=== PATIENT | male | born 1965 | race Caucasian/White ===

== ENCOUNTER 2025-02-17 07:51 | Inpatient (IN) ==
--- NOTE | 2025-02-17 08:47 | History & Physical Bridge Note ---
Date of Service February 17, 2025 History & Physical Bridge Note I have examined the patient, reviewed the History & Physical and in the interval since the performance of the History & Physical I have noted the following changes of clinical significance: no changes noted
--- NOTE | 2025-02-17 08:48 | Pre Anesthesia Assessment ---
Date of Service February 17, 2025 Pre Sedation Assessment Vital Signs Temp Pulse Resp BP Pulse Ox O2 Del Method 02/17/25 07:58 36.4 C 77 17 161/115 H 96 Room Air Cardiovascular RRR, no murmur, no edema Respiratory normal respiratory effort, lungs clear to auscultation Pre-Sedation Airway Assessment Smoking Status: Former smoker Hx Sleep Apnea: No Short, Thick Neck: No Thyromental Distance: > or= 3.5 Finger Breadths Oral Cavity: + WNL Mallampati Class: III ASA: ASA3 NPO Status Date of Last Intake of Fluids: 02/16/25 Time of Last Intake of Fluids: 18:00 Date of Last Intake of Solid Food: 02/16/25 Time of Last Intake of Solid Foods: 18:00 Procedure Planning Contraindications for Sedation: none Current Medications Reviewed: Yes Notes The planned sedation has been discussed with the patient. Informed Consent was obtained. I have identified the patient, determined the appropriateness of sedation and have assessed the patient immediately prior to the procedure. All medicine(s) and interventions are by my order.
--- NOTE | 2025-02-17 09:37 | Post Anesthesia Assessment ---
Date of Service February 17, 2025 Post Sedation Assessment Vital Signs Temp Pulse Resp BP Pulse Ox O2 Del Method 02/17/25 07:58 36.4 C 77 17 161/115 H 96 Room Air Recovery Score Activity: Moves 4 extremities Respiration: Deep Breath/Cough Circulation: +/-20% PreAnes Value Consciousness: Fully Awake Oxygen Saturation: > 92% On Room Air Discharge Sedation Level of Care: Fast Track Phase II Post Sedation Plan On clinical assessment, the patient appears to have tolerated the sedation without complications. Patient is recovering as anticipated. Patient will continue to be monitored by nursing and may be discharged when sedation discharge criteria are met per below protocol. Upon Completions of procedure up to 15 minutes continue every 5 minute vital signs and the P.A.R. score; then discharge to a Phase I or Fast Track to Phase II per the following guidelines: * Discharge Patient to appropriate Phase II area if PAR is 8 or greater or return to pre- procedure baseline. The post - procedure orders will be as directed. * If PAR score is less than 8 or not return to pre-procedure baseline then patient will follow Phase I monitoring till PAR is reached for Phase II. The Phase I may be done in procedure room or may call to secure a Phase I area. * If naloxone or flumazenil are used for reversal, hold in Phase I for continued monitoring from when last reversal dose was given for a minimum of 60 minutes or longer pending the nurse and/or physician discretion of patient condition before discharge to Phase II. Please call the Sedation Physician to re-evaluate and complete post-note for discharge to Phase II area. Do NOT discharge from procedure sedation or Phase 1 until post- sedation evaluation note is complete by procedure /sedation MD Sedation Discharge Instructions to be given to the patient at discharge to home.
[2025-02-17] MEDS: LIDOCAINE 1% LOCAL 20 ML VIAL ONE ×2 (10:42→13:28)
[2025-02-17] MEDS: MIDAZOLAM HCL 5 MG/ML 1 ML VIAL ONE ×2 (13:25→13:29)
[2025-02-17] MEDS: fentaNYL citrate PF 100 MCG/2 ML VIAL ONE ×2 (13:25→13:29)
[2025-02-17] MEDS: ISOPROTERENOL HCL 0.2 MG/ML 5 ML AMP IV ONE (13:26)
[2025-02-17] MEDS: HEPARIN (PORCINE) 1000 UNIT/ML 10 ML (CATH LAB USE ONLY) ONE ×2 (13:26→13:29)
[2025-02-17] MEDS: AMIODARONE 360MG / 200ML D5W IV ONE (13:30)
[2025-02-17] MEDS: METOPROLOL TARTRATE 1 MG/ML VIAL IV ONE (13:31)
[2025-02-17 13:34] LABS: iSTAT Arterial Blood Gas HCO3 23 meg/L (19-24); iSTAT Arterial Blood Gas pCO2 50 mmHg (35-46); iSTAT Arterial Blood Gas pH 7.28 (7.35-7.45); iSTAT Arterial Blood Gas pO2 169 mmHg (80-95); iSTAT Carbon Dioxide 25 mmol/L (24-31); iSTAT Hematocrit 47 % (42-52); iSTAT Potassium 4.1 mmol/L (3.3-5.0); iSTAT Sodium 140 mmol/L (135-144)
[2025-02-17] MEDS: MoRPHine SULFATE 2 MG/ML CARP ONE (14:20)
[2025-02-17] MEDS: ETOMIDATE 2 MG/ML 20 ML VIAL IV ONE (14:24)
[2025-02-17] MEDS: MoRPHine SULFATE 2 MG/ML CARP IV STA (15:22)
[2025-02-17] MEDS ORDERED: 0.2 MICRON FILTER SET 1 EACH IV ONE ×2 (15:37→19:16)
--- NOTE | 2025-02-17 16:17 | XRay Report ---
Clinical History: Chest pain Technique: A frontal view of the chest was obtained Findings: There are no confluent pulmonary infiltrates. The heart size is within normal limits. No pleural effusion or pneumothorax is seen. There is an apparent 2 cm left upper lobe nodule No fracture is noted. No foreign body is seen Impression: Apparent 2 cm left upper lobe nodule, which could represent bronchogenic carcinoma. Contrast enhanced chest CT is recommended for further evaluation ACT 112: Positive. There are findings on this exam that require communication between the performing entity and the patient following Patient Test Result Information Act ([place] ACT 112) guidelines. Electronically signed by John Herrera 02-17-2025 4:15 PM
[2025-02-17] MEDS: oxyCODONE/ACETAMINOPHEN 10-325 TAB PO PRN (17:37)
[2025-02-17] MEDS: ISOSORBIDE MONO EXTENDED REL 30 MG TABCR PO SCH (17:38)
[2025-02-17] MEDS: AMIODARONE / D5W 360 MG/200 ML BAG IV ONE (17:38)
[2025-02-17] MEDS: AMIODARONE 200 MG TAB PO SCH (17:39)
[2025-02-17] MEDS: AMIODARONE / D5W 360 MG/200 ML BAG IV SCH (20:14)
[2025-02-17] MEDS: metFORMIN HCL 500 MG TAB PO SCH (20:43)
[2025-02-17] MEDS: lisinopril 20 MG TAB PO STA (21:41)
--- OUTSIDE RECORDS SUMMARY | 2025-02-18 01:54 | External Medical Summary | Summary of Care ---
Author Name Unknown Organization [facility] Address [address] [place] [address] Phone [phone] Care Team Providers Care Community Development Planner Name Role Phone Karmen Morales PIPPA Primary Care Provider Reason for Visit * Reason Onset Date Comments Referral 12/29/2024 Encounter Details Date Type Department Care Team (Late st Contact Info) Description 12/29/2024 New Patient Triage (TRANSPORTATION ECONOMICS TEACHER USE ONLY) Cardiology, [address] [phone] Alysha Wu CRNP [address] [place] [address] Referral Allergies No known active allergiesdocumented as of this encounter (statuses as of 01/19/2025) Medications Olmesartan Medoxomil-HCTZ 20-12.5 MG Oral TabletIndicatio ns:HTN, goal below 130/80 Take 2 Tablets by mouth in the morning. 180 Tablet 3 4 Active Additional Information Patient not taking.Reported on 12/24/2024 Nitroglycerin 0.4 MG Sublingual Tablet Sublingual (Nitrostat) Place 1 Tablet under the tongue every 5 minutes as needed for Pain, Chest. 5 Active metFORMIN HCl 500 MG Oral Tablet (Glucophage) Take 2 Tablets by mouth 2 times a day with morning and evening meals. 120 Tablet 5 5 Active Aspirin 81 MG Oral Tablet Chewable Take 1 Tablet by mouth in the morning. 5 025 Discontin ued(Refil l) Isosorbide Mononitrate ER 30 MG Oral Tablet Extended Release 24 Hour (Imdur) Take 1 Tablet by mouth in the morning. 5 025 Discontin ued(Refil l) Metoprolol Tartrate 25 MG Oral Tablet (Lopressor) Take 0.5 Tablets by mouth in the morning and 0.5 Tablets before bedtime. 5 025 Discontin ued(Refil l) Rosuvastatin Calcium 20 MG Oral Tablet (Crestor) Take 1 Tablet by mouth in the morning. 5 025 Discontin ued(Refil l) Hospital, Clinic, or Other Facility Administered Medication Ordered Dose Route Frequency Start Date End Date Status albuterol (PROVENTIL HFA) inhaler 4 PuffIndications:Pulmonary nodules,Hilar lymphadenopathy,Past use of tobacco,Mediastinal lymphadenopathy 4 Puff IN Q4H PRN 12/12/2018 Active albuterol sulfate (PROVENTIL) (2.5 MG/3ML) 0.083% inhalation solution 2.5 mgIndications:Pulmonary nodules,Hilar lymphadenopathy,Past use of tobacco,Mediastinal lymphadenopathy 2.5 mg NEBULIZER Q4H PRN 03/03/2019 Active documented as of this encounter (statuses as of 01/19/2025) Active Problems Problem Noted Date Diagnosed Date Type 2 diabetes mellitus wit hout complication, without long-term current use of insulin 04/13/2024 HTN, goal below 130/80 12/25/2018 Obesity, Class II, BMI 35-39.9, isolated (see ac tual BMI) 12/25/2018 Angina pectoris 12/25/2018 documented as of this encounter (statuses as of 01/19/2025) Resolved Problems Problem Noted Date Diagnosed Date Resolved Date Prediabetes 12/15/2018 05/14/2024 Overview: Per Prediabetes protocol #1 documented as of this encounter (statuses as of 01/19/2025) Immunizations Name Administration Dates Next Due TDAP (age 10 and older)(Boostrix) 05/07/2022 documented as of this encounter Social History Tobacco Use Types Packs/Day Years Used Date Smoking Tobacco: Former Cigarettes 2 6 Smokeless Tobacco: Former Chew Comments:quit 20 years ago Alcohol Use Standard Drinks/Week Comments No 0 (1 standard drink = 0.6 oz pur e alcohol) Rare AUDIT-C Answer Date Recorded Frequency of Alcohol Consumption Never 03/16/2019 Average Number of Drinks Not on file 019 Frequency of Binge Drinking Not on file 03/02 PHQ-2 Answer Date Recorded PHQ Adult Total Score 0 12/24/2024 Hunger Vital Sign Answer Date Recorded Within the past 12 months, y ou worried that your food would run out before you got the money to buy more. Never true 12/24/19 25 Within the past 12 months, t he food you bought just didn't last and you didn't have money to get more. Never true 12/24/2024 Childcare Answer Date Recorded Do you feel overwhelmed with taking care of a child, family member or friend? No 12/24/2024 Does your family need help f inding childcare? (Household - for ages 0-17 years) Not on file 12/24/2024 Clothing Answer Date Recorded Have you been unable to get clothing when it was really needed? No 12/24/2024 Is your family able to get c lothes or diapers when needed? (Household - for ages 0-17 years) Not on file 12/24/2024 Personal Safety Answer Date Recorded Do you feel unsafe or have concerns for your saf ety? No 12/24/2024 Do you have concerns for you r family's safety? (Household - for ages 0-17 years) Not on file 12/24/2024 Utilities Answer Date Recorded Do you have trouble paying y our heating, water, or electric bill? No 12/24/2024 Is your family able to pay t he heat, water, or electric bill? (Household - for ages 0-17 years) Not on file 12/24/2024 Does your family have access to good internet? (Household - for ages 0-17 years) Not on file 12/24/2024 Employment Status Answer Date Recorded Are you unemployed or without regular income? No 12/24/2024 Does the household have a re gular source of income? (Household - for ages 0-17 years) Not on file 12/24/2024 Social Connections Answer Date Recorded How often do you feel lonely or isolated from th ose around you? Never 12/24/2024 Financial Resource Strain Answer Date R ecorded Do you have any trouble payi ng for your medications, or do you think you might in the future? No 12/24/2024 Does your family have troubl e paying for medicine? (Household - for ages 0-17 years) Not on file 12/24/2024 Transportation Needs Answer Date Record ed Do you have trouble getting a ride to medical visits or work? (Adult - for ages 18 years and over) Not on file 12/24/2024 Does your family have a hard time getting a ride to doctors visits? (Household - for ages 0-17 years) Not on file 12/24/2024 Has lack of transportation k ept you from medical appointments, meetings, work, or from getting things needed for daily living? Check all that apply. No 12/24/2024 Do you (or your family) have trouble finding or paying for a ride (transportation)? (Household - for ages 0-17 years) Not on file 12/24/2024 Housing Stability Answer Date Recorded Do you currently live in a s helter or have no steady place to sleep at night? No 12/24/2024 Do you think you are at risk of becoming homeless? (Adult - for ages 18 years and over) Not on file 12/24/2024 Does your family worry about paying for your home or becoming homeless? (Household - for ages 0-17 years) Not on file 0 12/24/2024 Are you homeless or worried that you might be in the future? No 12/24/2024 Are you (or your family) rikki eless or worried that you might be in the future? (Household - for ages 0-17 years) Not on file Food Insecurity Answer Date Recorded Do you need food for this week? No 12/24/2024 Are you able to get enough f ood for your family? (Household - for ages 0-17 years) Not on file 12/24/2024 Does your family need food t his week? (Household - for ages 0-17 years) Not on file 12/24/2024 Do you always have enough fo od for your family? (Household - for ages 0-17 years) Not on file 12/24/2024 Food Insecurity Answer Date Recorded Within the past 12 months, y ou worried that your food would run out before you got the money to buy more. Never true 12/24/19 25 Within the past 12 months, t he food you bought just didn't last and you didn't have money to get more. Never true 12/24/2024 Do you need food for this week? 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 PRATIBHA Wong * Nahomi Skinner NRCMA - 01/18/2025 3:41 PM EST Pt can be seen on 01/28/25 at 12:30 pm at [facility] LMOM for pt to call back to schedule a sooner appt. PRATIBHA Wong * So Harley DNP - 12/30/2024 6:48 PM EST Does patient need to be seen?: Yes Modality: Office visit Urgency: Within 3 days (urgent) Discussed care plan with patient or proxy?: Yes TRIAGE: Patient shoud be cosidered for sooner appt with EP. Communicated with patient on Date (mm/payal/michael): 12/29/2024 at Time ([facility]): 0832 So Harley DNP, [place] [address] - [place] - [facility] * Leonor Dumont Charles, MEDICAL OFFICE SUPERVISOR - 12/29/2024 8:32 AM EST New Patient Triage What is the diagnosis/reason for referral?: HTN, goal below 130/80 [I10] History of ME (myocardial infarction) [I25.2] Enter order ID here: [id number] Specialty specific documentation: [facility] & then had episodes of SVT Discussed care plan with patient or proxy?: Yes via phone , pt having intermittent SOB & pain in upper back area , palpitations since hospital stay, pt anxious & worried/stressors increased since ME Communicated with patient on Date (mm/dd/yyyy): 12/26/24 at Time ([facility]): 0900 APPOINTMENT INFO: 02/18/25 Dr Coley INFO FROM CARDIAC REFERRAL Referred by PCP Andrew 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 He reported feeling dizzy and experiencing a rapid heart rate, which prompted him to lime puller andseek medical attention. The patient's heart rate reportedly reached 200 beats per minute during this episode. He was admitted to the hospital overnight and underwent a heart catheterization, which revealed mild nonobstructive coronary artery disease and an off-track vein in the heart. Since the heart attack, the patient has been experiencing frequent episodes of sharp pain across his shoulder blades, which often leads to breathlessness. These episodes typically occur when the patient is lying down and can happen multiple times within a few hours. The patient has been prescribed nitroglycerin for these episodes but has been hesitant to use it due to concerns that the pain will subside before reaching the hospital. The patient's current medication regimen includes Imdur, aspirin, metoprolol, Crestor, rosuvastatin, and metformin. He was previously on lisinopril, but this was discontinued following the heart attack. The patient has been adhering to a heart-healthy diet and has significantly reduced his caffeineintake. He has not smoked in over 20 years. The patient's recent heart attack and ongoing symptoms have caused significant concern and stress for both the patient and his family. The patient has expressed a [facility]. EKG/ECHO/ZIO/CARDIAC TESTING [facility] EKG: Results for orders placed or performed during the hospital encounter of 12/18/24 ECG 12-LEAD Result Value Ref Range Ventricular rate 117 BPM Atrial Rate 117 BPM DE Interval 138 ms QRS Duration 78 ms QT Interval 308 ms QTC Calculation 429 ms Calculated P [place] 45 degrees Calculated R [place] 6 degrees Calculated T [place] 42 degrees Narrative Sinus tachycardia Otherwise normal ECG No previous ECGs available Confirmed by Dwight Cao ([id number]) on 12/18/2024 11:41:05 AM Chest Pain Pt arrived via ems for chest pain about 1 hour prior to arrival 4mg Zofran given and 2 SL nitro and2 adult baby aspirin taken, pt states pain has eased up some, pt states having dizziness with standing. Meng Ware is a 59 y.o. male who had concerns including Chest Pain . Arrival: The patient arrived by Ambulance Is a 59-year-old male with past medical history of diabetes, hypertension is presenting due to chest pain for 1 hour. Patient states that he has a substernal pressure-like sensation in the center with chest without radiation to his arms or neck, initially stated it felt like he had gas and needed to burp. Also reports some nausea and vomiting x2 during the onset of pain, as well as diaphoresis. States that his head feels lightheaded and dizzy. States days leading up to CP he had a sharp pain inbetween his shoulder blades intermittently. On 2L oxygen, not on O2 at home. Received 2 nitroglycerin, aspirin, and 4 of Zofran via EMS. Endorses smoking 20 years ago, denies any prior history of ME or cardiac events. Diabetes controlled with oral medications. Patient states previously had biopsy of lung nodule seen on chest x-ray, workup was negative per patient. Denies any fever, cough, diarrhea, LE swelling. ED Triage Vitals [12/18/24 1013] BP (Non-Invasive) (!) 115/92 Heart Rate (!) 127 Respiratory Rate 12 Temperature 36.2 C (97.2 F) SpO2 97 % Weight 104 kg (230 lb) Height 1.753 m (5' 9") During bedside report patient converted into SVT 180s-190s around 717am. Patient felt dizzy and felt like his heart was racing. Corsetier to bedside. Vitals as above. Attempted valsalva maneuver x 2 and patient remained in SVT. Cariology fellow Ordered and gave 6mg of adenosine at 723am. Patient successfully converted to NSR 90s. 0335- SVT with HR 180-190, BP 136/113, Sx of lightheadedness and a feeling of having a lump in the throat accdng to pt. rapid response activated, valsalva maneuver initiated- pt instructed to hold breath and bear down for 15 sec, 0346- converted to NSR, 12L ECG done, blood sent to lab. monitored inital Assessement: THERMODYNAMICIST to bedside for patient experiencing a HR in the 180's with associated palpitations. Patient states that this has not happened to him before but had a cardiac procedure done today. Primary team bedside ordered adenosine. Patient hooked up to [employer]. First dose of adenosine (6mg) unsuccessful. 2nd dose of adenosine (12mg) successful and patient is now back in NSR to low tachycardia with a rate between 95-105bpm. Patient states that palpitations have resolved. Bedside RN to follow up with primary service if further intervention is necessary. Assessment: denies chest pain, endorses palpitations, tachycardia Intervention: Adenosine x 2 doses (6mg, 12mg), EKG LABS Labs Ordered/Reviewed BASIC METABOLIC PANEL - Abnormal; Notable for the following components: Result Value SODIUM 134 (*) GLUCOSE 374 (*) CREATININE 1.36 (*) All other components within normal limits TROPONIN-I (FOR ED ONLY) - Abnormal; Notable for the following components: TROPONIN-I HS 66.5 (*) All other components within normal limits CBC WITH DIFF - Abnormal; Notable for the following components: MCH 32.2 (*) MCHC 36.6 (*) All other components within normal limits CBC - Abnormal; Notable for the following components: MCH 32.6 (*) MCHC 36.6 (*) All other components within normal limits TROPONIN-I (FOR ED ONLY) - Abnormal; Notable for the following components: TROPONIN-I HS 74.4 (*) All other components within normal limits PT/INR - Normal Narrative: In the setting of warfarin therapy, a moderate-intensity INR goal range is 2.0 to 3.0 and a high-intensity INR goal range is 2.5 to 3.5. MEDICATIONS Current Outpatient Medications Medication Sig Dispense Refill Olmesartan Medoxomil-HCTZ 20-12.5 MG Oral Tablet Take 2 Tablets by mouth in the morning. (Patient not taking: Reported on 12/24/2024) 180 Tablet 3 Aspirin 81 MG Oral Tablet Chewable Take 1 Tablet by mouth in the morning. Isosorbide Mononitrate ER 30 MG Oral Tablet Extended Release 24 Hour (Imdur) Take 1 Tablet by mouthin the morning. Metoprolol Tartrate 25 MG Oral Tablet (Lopressor) Take 0.5 Tablets by mouth in the morning and 0.5 Tablets before bedtime. Nitroglycerin 0.4 MG Sublingual Tablet Sublingual (Nitrostat) Place 1 Tablet under the tongue every5 minutes as needed for Pain, Chest. Rosuvastatin Calcium 20 MG Oral Tablet (Crestor) Take 1 Tablet by mouth in the morning. metFORMIN HCl 500 MG Oral Tablet (Glucophage) Take 2 Tablets by mouth 2 times a day with morning and evening meals. 120 Tablet 5 Current Facility-Administered Medications Medication Dose Route Frequency Provider Last Rate Last Admin albuterol (PROVENTIL HFA) inhaler 4 Puff 4 Puff Inhalation Q4H PRN Akash Stacy PA-C albuterol sulfate (PROVENTIL) (2.5 MG/3ML) 0.083% inhalation solution 2.5 mg 2.5 mg Nebulizer Q4H PRN Akash Stacy PA-C 2.5 mg at 03/16/19 1228 documented in this encounter Plan of Treatment Upcoming Encounters Date Type Department Care Team (Late st Contact Info) Description 01/28/2025 12:30 PM EST Office Visit Cardiology, [address] [address] Kaylynn Coley DO [address] [place] [address] 03/26/2025 2:00 PM EDT Office Visit Family Practice, [address] [phone] Karmen Morales CRNP [address] [address] Health Maintenance Due Date Last Done Comments HIV Screening 1982 Hepatitis C Screening 1985 Hepatitis B Vaccine (1 of 3 - 19+ 3-dose series) 1986 Pneumococcal Vaccine: 50+ Years (1 of 2 - PCV) 1986 Colonoscopy 2012 Fecal Occult Blood Test 2012 Sigmoidoscopy 2012 Zoster Vaccines (1 of 2) 2017 COVID-19 Vaccine (1 - season) 2024 Influenza Vaccine (FLU shot) (#1) 2024 HbA1c 06/23/2025 12/24/2024, 12/02, 01/10/2021, Additional history exists Albumin/Creatinine Ratio 12/24/2025 12/24/2024 Depression Screening 12/24/2025 12/24/2024 Diabetic Eye Exam 12/24/2025 12/24/2024 Diabetic Foot Exam 12/24/2025 12/24/2024 GFR 12/24/2025 12/24/2024, 12/02, 12/19/2024, Additional history exists Cologuard 01/07/2028 01/07/2025 Colorectal Cancer Screening 01/07/2028 DTap/Tdap Vaccines (2 - Td or Tdap) 05/07/2032 05/07/2022 HPV (Gardasil) Vaccine Aged Out No lo nger eligible based on patient's age to complete this topic MENINGOCOCCAL (MENACTRA/MENVEO) Aged Out No longer eligible based on patient's age to complete this topic Meningitis B Vaccine (Bexsero/Trumemba) Aged Out No longer eligible based on patient's age to complete this topic documented as of this encounter Medical Devices Not on filedocumented as of this encounter Care Teams Community Development Planner Relationship Specialty Start Date End Date Karmen Morales CRNP [address] [address] PCP - General Nurse Practitioner 12/24/24 documented as of this encounter
--- OUTSIDE RECORDS SUMMARY | 2025-02-18 01:54 | External Medical Summary ---
Author Name Unknown Address Unknown Organization [id number]:[facility] [place] [address] [place] [address] Laboratory Report Ordering Provider Test Date Status NIC DODGE 02/16/2025 09:58:04 Final Observation Date Value Abnormality Reference (Units ) Status BUN 02/16/2025 09:58:04 16 6-20 (mg/dL) Final Creatinine 02/16/2025 09:58:04 1.0 0.6-1.2 (mg/dL) Final Glomerular filtration rate/1.73 sq M.predicted [Volume Rate/Area] in Serum, Plasma or Blood by Creatinine-based formula (CKD-EPI) 02/16/2025 09:58:04 90 >=60 (mL/min) Final eGFR is calculated based on the CKD-EPI 2020 equation. Sodium 02/16/2025 09:58:04 141 135-146 (m mol/L) Final Potassium 02/16/2025 09:58:04 4.7 3.5-5.1 (m mol/L) Final Cl 02/16/2025 09:58:04 102 98-107 (mm ol/L) Final CO2 02/16/2025 09:58:04 27 22-32 (mmo l/L) Final Anion gap 02/16/2025 09:58:04 12 7-15 (mmol /L) Final Glucose 02/16/2025 09:58:04 143 Above high normal 70 -120 (mg/dL) Final Calcium 02/16/2025 09:58:04 9.1 8.4-10.2 ( mg/dL) Final Performing Location [facility] [place] - [address] [place] [address]
--- OUTSIDE RECORDS SUMMARY | 2025-02-18 01:54 | External Medical Summary ---
Author Name Unknown Address Unknown Organization [id number]:[facility] - [address] [facility] [address] Laboratory Report Ordering Provider Test Date Status NIC DODGE 02/16/2025 09:58:04 Final Observation Date Value Abnormality Reference (Units ) Status WBC, Total 02/16/2025 09:58:04 5.27 4.00-10.80 (K/uL) Final RBC 02/16/2025 09:58:04 5.30 4.50-5.25 (M/uL) Final Hemoglobin 02/16/2025 09:58:04 16.2 14.0-16.8 (g/dL) Final HCT 02/16/2025 09:58:04 47.8 40.0-48.4 (%) Final MCV 02/16/2025 09:58:04 90.2 82.0-99.5 (fL) Final MCH 02/16/2025 09:58:04 30.6 27.0-34.0 (pg) Final MCHC 02/16/2025 09:58:04 33.9 32.0-36.0 (g/dL) Final RDW 02/16/2025 09:58:04 11.8 11.5-15.5 (%) Final Platelets 02/16/2025 09:58:04 237 140-400 (K/uL) Final MPV 02/16/2025 09:58:04 10.4 6.6-11.1 (fL) Final Nucleated erythrocytes/100 leukocytes [Ratio] in Blood by Automated count 02/16/2025 09:58:04 0 <=0 (/100 WBCs) Final Performing Location [facility] - [address] [place] [address]
--- OUTSIDE RECORDS SUMMARY | 2025-02-18 01:54 | External Medical Summary | Summary of Care ---
Author Name Unknown Organization [facility] Address [address] [place] [address] Phone [phone] Care Team Providers Care Speech Lang Path Therapist Name Role Phone Karmen Morales Primary Care Provider Encounter Details Date Type Department Care Team (Late st Contact Info) Description 02/03/2025 Orders Only PATIENT PORTAL DO NOT DELETE THIS DEPT USED BY [facility] [place] [id number] Allergies No known active allergiesdocumented as of this encounter (statuses as of 02/03/2025) Medications Nitroglycerin 0.4 MG Sublingual Tablet Sublingual (Nitrostat) Place 1 Tablet under the tongue every 5 minutes as needed for Pain, Chest. 12/19/2024 Active metFORMIN HCl 500 MG Oral Tablet (Glucophage) Take 2 Tablets by mouth 2 times a day with morning and evening meals. 120 Tablet 5 12/28/2024 Active Isosorbide Mononitrate ER 30 MG Oral Tablet Extended Release 24 Hour (Imdur) Take 1 Tablet by mouth in the morning. 90 Tablet 3 01/08/2025 Active Metoprolol Tartrate 25 MG Oral Tablet (Lopressor) Take 0.5 Tablets by mouth in the morning and 0.5 Tablets before bedtime. 90 Tablet 01/08/2025 Active Aspirin 81 MG Oral Tablet Chewable Take 1 Tablet by mouth in the morning. 90 Tablet 3 01/07/2025 Active Rosuvastatin Calcium 20 MG Oral Tablet (Crestor) Take 1 Tablet by mouth in the morning. 90 Tablet 3 01/14/2025 Active Hospital, Clinic, or Other Facility Administered Medication [...] as of this encounter (statuses as of 02/03/2025) Active Problems Problem Noted Date Diagnosed Date Type 2 diabetes mellitus wit hout complication, without long-term current use of insulin 04/13/2024 HTN, goal below 130/80 12/25/2018 Obesity, Class II, BMI 35-39.9, isolated (see ac tual BMI) 12/25/2018 Angina pectoris 12/25/2018 documented as of this encounter (statuses as of 02/03/2025) Resolved Problems Problem Noted Date Diagnosed Date Resolved Date Prediabetes 12/15/2018 05/14/2024 Overview: Per Prediabetes protocol #1 documented as of this encounter (statuses as of 02/03/2025) Immunizations Name Administration Dates Next Due TDAP [...] 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 on file Not on file documented as of this encounter Plan of Treatment Upcoming Encounters Date Type Department Care Team (Late st Contact Info) Description 03/26/2025 2:00 PM EDT Office Visit Family Practice, [place] [address] [phone] Karmen Morales CRNP [address] [id number] 04/01/2025 3:30 PM EDT Office Visit Cardiology, [place] [address] [place] [address] Annabella Elizalde CRNP [address] [place] [phone] Health Maintenance Due Date Last Done Comments [...] 12/24/2024, 12/02, 12/19/2024, Additional history exists Cologuard 01/13/2028 01/13/2025, 02/0 05/2025, 01/07/2025 Colorectal Cancer Screening 01/13/2028 DTap/Tdap Vaccines (2 - Td or Tdap) [...] filedocumented as of this encounter Care Teams Speech Lang Path Therapist Relationship Specialty Start Date End Date Karmen Morales CRNP [address] [phone] PCP - General Nurse Practitioner 12/24/24 documented as of this encounter
--- OUTSIDE RECORDS SUMMARY | 2025-02-18 01:54 | External Medical Summary | Summary of Care ---
Author Name Unknown Organization [facility] Address [address] [place] [address] Phone [phone] Care Team Providers Care Torch Solderer Name Role Phone Karmen Morales Primary Care Provider Reason for Visit * Reason Comments Outpatient Testing Encounter Details Date Type Department Care Team (Late st Contact Info) Description 02/16/2025 9:50 AM EDT Laboratory Laboratory, [place] [address] [place] [address] [place] [address] [place] [address] Pre-operative cardiovascular examination; SVT (supraventricular tachycardia) (HCC) Allergies No known active allergiesdocumented as of this encounter (statuses as of 02/16/2025) Medications Nitroglycerin 0.4 MG Sublingual Tablet Sublingual [...] as of this encounter (statuses as of 02/16/2025) Active Problems Problem Noted Date Diagnosed Date Type 2 diabetes mellitus wit hout complication, without long-term current use of insulin 04/13/2024 HTN, goal below 130/80 12/25/2018 Obesity, Class II, BMI 35-39.9, isolated (see ac tual BMI) 12/25/2018 Angina pectoris 12/25/2018 documented as of this encounter (statuses as of 02/16/2025) Resolved Problems Problem Noted Date Diagnosed Date Resolved Date Prediabetes 12/15/2018 05/14/2024 Overview: Per Prediabetes protocol #1 documented as of this encounter (statuses as of 02/16/2025) Immunizations Name Administration Dates Next Due TDAP [...] 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 Not on file documented as of this encounter Plan of Treatment Upcoming Encounters Date Type Department Care Team (Late st Contact Info) Description 03/26/2025 2:00 PM EDT Office Visit Family Practice, [place] [address] [place] [phone] Karmen Morales CRNP [address] [place] [address] 04/01/2025 3:30 PM EDT Office Visit Cardiology, [place] [address] [place] [phone] Annabella Elizalde CRNP [address] [facility] [place], [place] [phone] Pending Results Name Type Priority Associated Diagnoses Date /Time CBC Lab Routine Pre-operative cardiovascular examination SVT (supraventricular tachycardia) (HCC) 02/16/2025 9:58 AM EDT BASIC METABOLIC PANEL Lab Routine Pre-operative cardiovascular examination SVT (supraventricular tachycardia) (HCC) 02/16/2025 9:58 AM EDT Health Maintenance Due Date Last Done Comments [...] 12/19/2024, Additional history exists Cologuard 01/13/2028 01/13/2025, 05/2025, 01/07/2025 Colorectal Cancer Screening 01/13/2028 DTap/Tdap [...] Not on filedocumented as of this encounter Visit Diagnoses Diagnosis Pre-operative cardiovascular examination SVT (supraventricular tachycardia) (HCC) Other specified cardiac dysrhythmias documented in this encounter Care Teams Torch Solderer Relationship Specialty Start Date End Date Karmen Morales CRNP [address] [id number] PCP - General Nurse Practitioner 12/24/24 documented as of this encounter
--- OUTSIDE RECORDS SUMMARY | 2025-02-18 01:54 | External Medical Summary | Summary of Care ---
Author Name Unknown Organization [facility] Address [address] [place] [address] Phone [phone] Care Team Providers Care Trimming Inspector Name Role Phone Karmen Morales Primary Care Provider Reason for Visit * Reason Onset Date Comments Medication Refill 01/12/2025 Encounter Details Date Type Department Care Team (Late st Contact Info) Description 01/12/2025 Refill [facility] [address] [place] [address] Karmen Morales CRNP [address] [place], [place] [phone] Allergies No known active allergiesdocumented as of this encounter (statuses as of 01/14/2025) Medications Olmesartan Medoxomil-HCTZ 20-12.5 MG Oral TabletIndicatio [...] evening meals. 120 Tablet 5 5 Active Isosorbide Mononitrate ER 30 MG Oral Tablet Extended Release 24 Hour (Imdur) Take 1 Tablet by mouth in the morning. 90 Tablet 3 5 Active Metoprolol Tartrate 25 MG Oral Tablet (Lopressor) Take 0.5 Tablets by mouth in the morning and 0.5 Tablets before bedtime. 90 Tablet 5 Active Aspirin 81 MG Oral Tablet Chewable Take 1 Tablet by mouth in the morning. 90 Tablet 3 5 Active Rosuvastatin Calcium 20 MG Oral Tablet (Crestor) Take 1 Tablet by mouth in the morning. 90 Tablet 3 5 Active Rosuvastatin Calcium 20 MG Oral Tablet [...] as of this encounter (statuses as of 01/14/2025) Active Problems Problem Noted Date Diagnosed Date Type 2 diabetes mellitus wit hout complication, without long-term current use of insulin 04/13/2024 HTN, goal below 130/80 12/25/2018 Obesity, Class II, BMI 35-39.9, isolated (see ac tual BMI) 12/25/2018 Angina pectoris 12/25/2018 documented as of this encounter (statuses as of 01/14/2025) Resolved Problems Problem Noted Date Diagnosed Date Resolved Date Prediabetes 12/15/2018 05/14/2024 Overview: Per Prediabetes protocol #1 documented as of this encounter (statuses as of 01/14/2025) Immunizations Name Administration Dates Next Due TDAP [...] 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 Informed pt that RX is available at their pharmacy. Pt verbalized understanding and stated they will check with their pharmacy regarding this medication. Thank you, Coty Brumfield Marketing Performance Analyst [facility] 01/14/2025,3:31 PM * Telephone Encounter - Alina Woodard PA-C - 01/14/2025 2:18 PM ESTSigned Prescriptions: Disp Refills Rosuvastatin Calcium 20 MG Oral Tablet (Cr*90 Tab*3 Sig: Take 1 Tablet by mouth in the morning.Authorizing Provider: ALINA WOODARD * Telephone Encounter - Alina Woodard PA-C - 01/14/2025 2:18 PM EST Inboxologist Note: Refill sent Alina Woodard PA-C 01/14/2025 2:18 PM * Telephone Encounter - Nilda Hinton CPhT - 01/12/2025 4:18 PM EST Pt calling requesting the following medication below that is listed as "Historical". The following information was provided: Medication Name: Rosuvastatin Calcium 20 MG Oral Tablet (Crestor) Strength: Directions: Sig - Route: Take 1 Tablet by mouth in the morning. - O Preferred Quantity: 90 Previous Prescriber: Preferred Pharmacy: [id number] [place] Please review and approve if appropriate. Thank you, Nilda Hinton CPhT Cash Office Worker II [facility] (Formerly Telepharmacy) 01/12/2025,4:18 PM documented in this encounter Plan of Treatment Upcoming Encounters Date Type Department Care Team (Late st Contact Info) Description 02/18/2025 8:15 AM EDT [facility] [address] [place] [address] Kaylynn Coley DO [address] [place] [address] 03/26/2025 2:00 PM EDT Office Visit Family Practice, [place] [address] [phone] Karmen Morales CRNP [address] [phone] Health Maintenance Due Date Last Done Comments HIV Screening 1982 Hepatitis C Screening 1985 Hepatitis B Vaccine (1 of 3 - 19+ 3-dose series) 1986 Pneumococcal Vaccine: 50+ Years (1 of 2 - PCV) 1986 Colonoscopy 2012 Fecal Occult Blood Test 2012 Sigmoidoscopy 2012 Zoster Vaccines (1 of 2) 2017 COVID-19 Vaccine ( season) 2024 Influenza Vaccine (FLU shot) (#1) [...] filedocumented as of this encounter Care Teams Trimming Inspector Relationship Specialty Start Date End Date Karmen Morales CRNP [address] [id number] PCP - General Nurse Practitioner 12/24/24 documented as of this encounter
--- OUTSIDE RECORDS SUMMARY | 2025-02-18 01:54 | External Medical Summary | Summary of Care ---
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. LMOM for pt to call back to schedule a sooner appt. PRATIBHA Wong * So Harley DNP - 12/30/2024 6:48 PM EST Does patient need to be seen?: Yes Modality: Office visit Urgency: Within 3 days (urgent) Discussed care plan with patient or proxy?: Yes TRIAGE: Patient shoud be cosidered for sooner appt with EP. Communicated with patient on Date (mm/dd/yyyy): 12/29/2024 at Time ([facility]): 0832 So Harley DNP, [place] [address] - [place] - [facility] * Leonor Dumont LPN - 12/29/2024 8:32 AM EST New Patient Triage What is the diagnosis/reason for referral?: HTN, goal below 130/80 [I10] History of ND (myocardial infarction) [I25.2] Enter order ID here: [id number] Specialty specific documentation: Other [facility] & then had episodes of SVT Discussed care plan with patient or proxy?: Yes via phone , pt having intermittent SOB & pain in upper back area , palpitations since hospital stay, pt anxious & worried/stressors increased since ND Communicated with patient on Date (mm/dd/yyyy): 12/26/24 at Time ([facility]): 0900 APPOINTMENT INFO: 02/18/25 Dr Coley INFO FROM CARDIAC REFERRAL Referred by PCP Andrew 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 He reported feeling dizzy and experiencing a rapid heart rate, which prompted him to tack puller andseek medical attention. The patient's heart [...] a preference [facility] outside sales advertising executive for ongoing management. EKG/ECHO/ZIO/CARDIAC TESTING [facility] EKG: Results for orders placed or performed during the hospital encounter of 12/18/24 ECG 12-LEAD Result Value Ref Range Ventricular rate 117 BPM Atrial Rate 117 BPM ME Interval 138 ms QRS Duration 78 ms QT Interval 308 ms QTC Calculation 429 ms Calculated P [place] 45 degrees Calculated R [place] 6 degrees Calculated T [place] 42 degrees Narrative Sinus tachycardia Otherwise normal [...] years ago, denies any prior history of ND or cardiac events. Diabetes controlled with oral [...] and felt like his heart was racing. Jack Frame Tender to bedside. Vitals as above. Attempted valsalva [...] blood sent to lab. monitored inital Assessement: SALES SECRETARY to bedside for patient experiencing a HR in the 180's with associated palpitations. Patient states that this has not happened to him before but had a cardiac procedure done today. Primary team bedside ordered adenosine. Patient hooked up to [employer]. First dose of adenosine (6mg) unsuccessful. 2nd [...] Description 02/18/2025 8:15 AM EDT Office Visit Cardiology, [place] [address] [place] [address] Kaylynn Coley DO [address] [facility] [place] [address] 03/26/2025 2:00 PM EDT Office Visit Family Practice, [place] [address] [phone] Karmen Morales CRNP [address] [phone] Health Maintenance Due Date Last Done Comments HIV Screening 1982 Hepatitis C Screening 1985 Hepatitis B Vaccine (1 of 3 - 19+ 3-dose series) 1986 Pneumococcal Vaccine: 50+ Years (1 of 2 - PCV) 1986 Colonoscopy 2012 Fecal Occult Blood Test 2012 Sigmoidoscopy 2012 Zoster Vaccines (1 of 2) 2017 COVID-19 Vaccine (1 - 2023- season) 2024 Influenza Vaccine (FLU shot) (#1) [...] filedocumented as of this encounter Care Teams Bee Robber Relationship Specialty Start Date End Date Karmen Morales CRNP [address] [phone] PCP - General Nurse Practitioner 12/24/24 documented as of this encounter
--- OUTSIDE RECORDS SUMMARY | 2025-02-18 01:54 | External Medical Summary | Summary of Care ---
Author Name Unknown Organization [facility] Address [address] [place] [address] Phone [phone] Care Team Providers Care Impregnator Name Role Phone Karmen Morales Primary Care Provider Reason for Visit * Reason Onset Date Comments Patient Instructions 01/28/2025 Encounter Details Date Type Department Care Team ([facility] st Contact Info) Description 01/28/2025 Telephone Cardiology, [place] [address] [place], [place] [phone] Kaylynn Coley, [address] [place], [place] [phone] Patient Instructions Allergies No known active allergiesdocumented as of this encounter (statuses as of 01/28/2025) Medications Nitroglycerin 0.4 MG Sublingual Tablet Sublingual [...] as of this encounter (statuses as of 01/28/2025) Active Problems Problem Noted Date Diagnosed Date Type 2 diabetes mellitus wit hout complication, without long-term current use of insulin 04/13/2024 HTN, goal below 130/80 12/25/2018 Obesity, Class II, BMI 35-39.9, isolated (see ac tual BMI) 12/25/2018 Angina pectoris 12/25/2018 documented as of this encounter (statuses as of 01/28/2025) Resolved Problems Problem Noted Date Diagnosed Date Resolved Date Prediabetes 12/15/2018 05/14/2024 Overview: Per Prediabetes protocol #1 documented as of this encounter (statuses as of 01/28/2025) Immunizations Name Administration Dates Next Due TDAP [...] 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 Nothing to eat or drink after midnight, You may have clear liquids 4 hours prior to procedure No caffeine 24 hours prior to procedure No tobacco products after midnight Arrive at [facility] at 8 am in the Medical Treatment Unit/Same Day Surgery Desk and check in at the registration desk. Meds to hold AM of procedure include-Metformin, Metoprolol and any over the counter vitamins, Fish oil and/or Vit E. Meds to adjust the pm prior to the procedure include- none Pt may take all other medications regularly scheduled that morning including aspirin. Additional labs or testing needed: INR due- 02/10/2025 Bring all of your medications with you in their original containers. You may remain at [facility] Overnight for observation. There will be a one month follow up appt with Dr Coley scheduled. Call Zandra at [phone] with any questions or concerns. documented in this encounter Plan of Treatment Upcoming Encounters Date Type Department Care Team (Late st Contact Info) Description 03/26/2025 2:00 PM EDT Office Visit [place] [address] [phone] Karmen Morales CRNP [address] [address] 04/01/2025 3:30 PM EDT Office Visit Cardiology, [place] [address] [place] [address] Annabella Elizalde CRNP [address] [place] [address] Scheduled Orders Name Type Priority Associated Diagnoses Orde r Schedule CBC Lab Routine Pre-operative cardiovascular examination SVT (supraventricular tachycardia) (HCC) Expected: 01/28/2025, Expires: 01/28/2026 BASIC METABOLIC PANEL Lab Routine Pre-operative cardiovascular examination SVT (supraventricular tachycardia) (HCC) Expected: 01/28/2025, Expires: 01/28/2026 Health Maintenance Due Date Last Done Comments HIV Screening 1982 Hepatitis C Screening 1985 Hepatitis B Vaccine (1 of 3 - 19+ 3-dose series) 1986 Pneumococcal Vaccine: 50+ Years (1 of 2 - PCV) 1986 Colonoscopy 2012 Fecal Occult Blood Test 2012 Sigmoidoscopy 2012 Zoster Vaccines (1 of 2) 2017 COVID-19 Vaccine ( - season) 2024 Influenza Vaccine (FLU shot) (#1) 2024 HbA1c 06/23/2025 12/24/2024, 12/02, 01/10/2021, Additional history exists Albumin/Creatinine Ratio 12/24/2025 12/24/2024 Depression Screening 12/24/2025 12/24/2024 Diabetic Eye Exam 12/24/2025 12/24/2024 Diabetic Foot Exam 12/24/2025 12/24/2024 GFR 12/24/2025 12/24/2024, 12/02, 12/19/2024, Additional history exists Cologuard 01/13/2028 01/13/2025, 0205/2025, 01/07/2025 Colorectal Cancer Screening 01/13/2028 DTap/Tdap Vaccines [...] this encounter Visit Diagnoses Diagnosis Pre-operative cardiovascular examination- Primary SVT (supraventricular tachycardia) (HCC) Other specified cardiac dysrhythmias documented in this encounter Care Teams Impregnator Relationship Specialty Start Date End Date Karmen Morales CRNP [address] [phone] PCP - General Nurse Practitioner 12/24/24 documented as of this encounter
--- OUTSIDE RECORDS SUMMARY | 2025-02-18 01:54 | External Medical Summary | Summary of Care ---
Author Name Unknown Organization [facility] Address [address] [place] [address] Phone [phone] Care Team Providers Care Runner Man Name Role Phone Karmen Morales Primary Care Provider Reason for Referral * Evaluate & Treat - Unlimited Visits (Within 3 days (urgent)) - Authorized Specialty Diagnoses / Procedures Referred By Contact Referred To Contact Cardiovascular Medicine / Cardiology Diagnoses HTN, goal below 130/80 History of IN (myocardial infarction) Karmen Morales CRNP [address] [id number] Phone: tel: fax: Referral ID Status Reason Start Date Expiration Date Visits Requested Visits Authorized [id number] Authorized Specialty Services Required 12/24/[phone] Question Answer Referral Priority Within 3 days (urgent) Where should this appointment be scheduled? [facility] To which of the following clinics are you referring your patient? [facility]Electrophysiology [facility] Reason for Visit * Reason Comments NEW PATIENT Pt would like to est ablish with PCP. Encounter Details Date Type Department Care Team (Late st Contact Info) Description 12/24/2024 8:40 AM EST Office Visit [facility] [address] [id number] Karmen Morales CRNP [address] [id number] Hospital discharge follow-up*; Type 2 diabetes mellitus without complication, without long-term current use of insulin (HCC); Special screening for malignant neoplasms, colon; HTN, goal below 130/80; History of IN (myocardial infarction); SVT (supraventricular tachycardia) (HCC) Allergies No known active allergiesdocumented as of this encounter (statuses as of 01/13/2025) Medications Olmesartan Medoxomil-HCTZ 20-12.5 MG Oral TabletIndicati ons:HTN, goal below 130/80 Take 2 Tablets by mouth in the morning. 180 Tablet 3 04/14/20 Active Additional Information Patient not taking.Reported on 12/24/2024 Nitroglycerin 0.4 MG Sublingual Tablet Sublingual (Nitrostat) Place 1 Tablet under the tongue every 5 minutes as needed for Pain, Chest. 12/19/19 Active Rosuvastatin Calcium 20 MG Oral Tablet (Crestor) Take 1 Tablet by mouth in the morning. 12/19/19 Active Cephalexin 500 MG Oral Capsule (Keflex) Take 1 Capsule by mouth in the morning and 1 Capsule at noon and 1 Capsule in the evening and 1 Capsule before bedtime. 28 Capsule 4 9:52 AM EST 11/24/20 24 025 Discontinued Aspirin 81 MG Oral Tablet Chewable Take 1 Tablet by mouth in the morning. 12/19/19 25 025 Discontinued(R efill) Isosorbide Mononitrate ER 30 MG Oral Tablet Extended Release 24 Hour (Imdur) Take 1 Tablet by mouth in the morning. 12/20/19 025 Discontinued(R efill) Metoprolol Tartrate 25 MG Oral Tablet (Lopressor) Take 0.5 Tablets by mouth in the morning and 0.5 Tablets before bedtime. 12/19/19 25 025 Discontinued(R efill) metFORMIN HCl 500 MG Oral Tablet (Glucophage) Take 1 Tablet by mouth 2 times a day with morning and evening meals. 025 Discontinued Hospital, Clinic, or Other Facility Administered Medication [...] as of this encounter (statuses as of 01/13/2025) Active Problems Problem Noted Date Diagnosed Date Type 2 diabetes mellitus wit hout complication, without long-term current use of insulin 04/13/2024 HTN, goal below 130/80 12/25/2018 Obesity, Class II, BMI 35-39.9, isolated (see ac tual BMI) 12/25/2018 Angina pectoris 12/25/2018 documented as of this encounter (statuses as of 01/13/2025) Resolved Problems Problem Noted Date Diagnosed Date Resolved Date Prediabetes 12/15/2018 05/14/2024 Overview: Per Prediabetes protocol #1 documented as of this encounter (statuses as of 01/13/2025) Immunizations Name Administration Dates Next Due TDAP [...] No 12/24/2024 Does the household have a [facility] source of income? 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 on file Not on file documented as of this encounter Last Filed Vital Signs Vital Sign Reading Time Taken Comments Blood Pressure 151/100 12/24/2024 9:09 AM EST Pulse 72 12/24/2024 8:34 AM EST Temperature 36.3 C (97.3 F) 12/24/2024 8:34 AM ES T Respiratory Rate 16 12/24/2024 8:34 AM EST Oxygen Saturation 98% 12/24/2024 8:34 AM EST Inhaled Oxygen Concentration - - Weight 104.6 kg (230 lb 9.6 oz) 12/24/2024 8:34 AM EST Height 172.7 cm (5' 8") 12/24/2024 8:34 AM EST Body Mass Index 35.06 12/24/2024 8:34 AM EST documented in this encounter Patient Instructions * Patient Instructions* Destiney Figueroa LPN - 12/24/2024 8:37 AM EST Images from the original note were not included. Diabetes: Keeping Feet Healthy Inspect your feet every day for signs of a problem. Diabetes can damage nerves in your feet and cause neuropathy. This condition makes it hard for you to feel injuries or sore spots. Diabetes can also change blood flow, making it harder for small problems, like a blister, to heal properly. In fact, minor injuries can quickly become serious infections that send you to the hospital. Practice self-care to protect your feet and keep them healthy. Take Special Care Inspect your feet daily for problems such as redness, blisters, cracks, dry skin, or numbness. Use a mirror to see the bottoms of your feet. Or, ask for help. Manage your diabetes. Monitor and control your blood sugar. Take all your medications as prescribed. Avoid walking barefoot, even indoors. Wash your feet with warm water and mild soap. Dry well, especially between toes. Dont treat corns or calluses yourself. Talk to your doctor or greenhouse staff (a doctor who specializes in foot care) if you need assistance trimming your toenails. Use moisturizing cream or lotion if you have dry skin, but dont use it between toes. Dont use heating pads on your feet. If you have neuropathy, you could get a burn and not feel it. Stop smoking. Smoking restricts blood flow and can make it harder for wounds to heal. Have Regular Checkups Foot problems can develop quickly. So be sure to follow your healthcare teams schedule for regular checkups. During office visits, take off your shoes and socks as soon as you get in the exam room. Ask your healthcare provider to examine your feet for problems. This will make it easier to find and treat small skin irritations before they get worse. Regular checkups can also help keep track of the blood flow and feeling in your feet. If you have neuropathy, you may need to have checkups more often. Wear Proper Footwear Wearing proper footwear is very important. If areas of your feet have been damaged by too much pressure, your healthcare provider may recommend changing your footwear. In some cases, avoiding high heels or tight work boots may be all thats needed. Or, your healthcare provider may recommend special shoes or custom inserts. These help protect your feet and keep existing irritations from getting worse. If you need special footwear, ask your healthcare provider if you qualify for [employer] diabetic shoe program. Make Sure Shoes and Socks Fit Any pair of shoes--new or old--should feel comfortable as soon as you put them on. There shouldnt be any rubbing when you walk. Wear the right shoe for any activity. For instance, a running shoe is designed to keep your feet injury-free while jogging. Buy shoes at the end of the day, when your feet are larger. Make sure they provide support without feeling too loose. Make sure your socks fit, t oo. Wear soft, seamless, well-padded socks for activity. Cotton or microfiber socks are best to help to absorb sweat. To protect your feet, avoid shoes that are open-toed or open-heeled. If you have questions about what kinds of shoes and socks are best, talk to your healthcare team. Get Regular Exercise Regular exercise improves blood flow in your feet. It also increases foot strength and flexibility.Gentle exercises, like walking or riding a stationary bicycle, are best. You can also do special foot exercises. Just be sure to talk with your healthcare provider before starting any exercise program. Also mention if any exercise causes pain, redness, or other signs of foot problems. Note: If you have any kind of break in the skin of your foot or ankle, keep the area clean. Then call your doctor--especially if the area doesnt appear to be healing. 2714-3963 [employer], [address] [place] [address], [place] [address]. All rights reserved. This information is not intended as a substitute for professional medical care. Always follow your healthcare professional's instructions. Colorectal Cancer Screening Colorectal cancer (cancer in the colon or rectum) is a leading cause of cancer deaths in the [place] But it doesnt have to be. When this cancer is found and removed early, the chances of a full recovery are very good. Because colorectal cancer rarely causes symptoms in its early stages, screening for the disease is important. Its even more crucial if you have risk factors for the disease. Learn more about colorectal cancer and its risk factors. Then talk to your healthcare provider about being screened. You could be saving your own life. Risk factors for colorectal cancer Your risk of having colorectal cancer increases if you: Are 50 years of age or older Have a family history or personal history of colorectal cancer or polyps Have a personal history of type 2 diabetes, Crohns disease, or ulcerative colitis Have an inherited genetic syndrome like Manley syndrome (also known as HNPCC) or familial adenomatous polyposis (FAP) Are very overweight Are not physically active Smoke Drink a lot of alcohol Eat a lot of red or processed meat The colon and rectum Waste from food you eat enters the colon from the small intestine. As it travels through the colon,the waste (stool) loses water and becomes more solid. Intestinal muscles push it toward the sigmoid--the last section of the colon. Stool then moves into the rectum, where its stored until its ready to leave the body during a bowel movement. How cancer develops Polyps are growths that form on the inner lining of the colon or rectum. Most are benign, which means they arent cancerous. But over time, some polyps can become cancer (malignant). This happens when cells in these polyps begin growing abnormally. In time, malignant cells invade more and more ofthe colon and rectum. The cancer may also spread to nearby organs or lymph nodes or to other parts of the body. Finding and removing polyps can help prevent cancer from ever forming. Your screening Screening means looking for a health problem before you have symptoms. During screening for colorectal cancer, your healthcare provider will ask about your health history, examine you, and do one or more tests. History and exam The history and exam involve the following: Health history. Your healthcare provider will ask about your health history. Mention if a family member has had colon cancer or polyps. Also mention any health problems you have had in the past. Digital rectal exam (JESSICA). During a JESSICA, the healthcare provider inserts a lubricated gloved fingerinto the rectum. The test is painless and takes less than a minute. Healthcare providers agree thatthis test alone is not enough to screen for colorectal cancer. Screening test choices: Fecal occult blood test (FOBT) or fecal immunochemical test (FIT) These tests check for occult blood in stool (blood you cant see). Hidden blood may be a sign of colon polyps or cancer. A small sample of stool is tested for blood in a laboratory. Most often, youcollect this sample at home using a kit your healthcare provider gives you. Follow the instructionscarefully for using this kit. You might need to avoid certain foods and medicines before the test, as directed. Barium enema with contrast (double-contrast barium enema) This test uses X-rays to provide images of the entire colon and rectum. The day before this test, you will need to do a bowel prep to clean out the colon and rectum. A bowel prep is a liquid diet plus strong laxatives or enemas. You will be awake for the test, but you may be given medicine to help you relax. At the start of the test, a radiologist (a healthcare provider who specializes in imagingtests) places a soft tube into the rectum. The tube is used to fill the colon with a contrast liquid (barium) and air. This can be uncomfortable for some people. The liquid helps the colon show up clearly on the X-rays. Because the test uses X-rays, it exposes you to a small amount of radiation. Virtual colonoscopy This exam is also called a CT colonography. It uses a series of X-ray photographs to create a 3-D view of the colon and rectum. The day before the test, you will need to do a bowel prep to clean out your colon. Your healthcare provider will give you instructions on how to do this. During the procedure, you will lie on a table that is part of a special X-ray machine called a CT scanner. A small tube will be placed into your rectum to fill the colon and rectum with air. This can be uncomfortable for some people. Then, the table will move into the machine and pictures will be taken of your colonand rectum. A computer will combine these photos to create a 3-D picture. Because the test uses X-rays, it exposes you to a small amount of radiation. Cologuard Cologuard is an easy to use, noninvasive colon cancer screening test that you can use in the privacy of your own home. It identifies altered DNA and/or blood in stool, which are associated with the possibility of colon cancer or precancer. DNA is continuously shed from cells in the intestinal lining, where it is passed into the stool. Ifcancer or precancer is present, abnormal cells will shed into the colon and stool along with normalcells. A molecular biology process is used to capture specific pieces of DNA for further analysis. Scope exams Here are two types of scope exams: Colonoscopy. This test can be used to find and remove polyps anywhere in the colon or rectum. The day before the test, you will do a bowel prep. This is a liquid diet plus a strong laxative solution or an enema. The bowel prep will cleanse your colon. You will be given instructions for this. Just before the test, you are given a medicine to make you sleepy. Then, a long, flexible, lighted tube called a colonoscope is gently inserted into the rectum and guided through the entire colon. Images ofthe colon are viewed on a video screen. Any polyps that are found are removed and sent to a lab fortesting. If a polyp cant be removed, a sample of tissue is taken and the polyp might be removed l ater during surgery. You will need to bring someone with you to drive you home after this test. Sigmoidoscopy. This test is similar to colonoscopy, but focuses only on the sigmoid colon and rectum. As with colonoscopy, bowel prep must be done the day before this test. It might not need to be ascomplete as the bowel prep for a colonoscopy. You are awake during the procedure, but you may be given medicine to help you relax. During the test, the healthcare provider guides a thin, flexible, lighted tube called a sigmoidoscope through your rectum and lower colon. The images are displayed on avideo screen. Polyps are removed, if possible, and sent to a lab for testing. Colonoscopy is the only screening test that lets your healthcare provider see the entire colon and rectum. This test also lets your healthcare provider remove any pieces of tissue that need to be looked at by a lab. If something suspicious is found using any other tests, you will likely need a colonoscopy. When to call your healthcare provider after a test Call your healthcare provider if you have any of the following after any screening test: Bleeding Fever of 100.4F (38C) or higher, or as directed by your healthcare provider Abdominal pain Vomiting Date Last Reviewed: 10/05/201519993481-3800 [facility]. [address] [place] [address], [place] [address]. All rights reserved. This information is not intended as a substitute for professional medical care. Always follow your healthcare professional's instructions. documented in this encounter Progress Notes * Karmen Morales CRNP - 12/24/2024 8:50 AM EST Images from the original note were not included. Subjective Meng Ware is a 59 year old male that presents for NEW PATIENT (Pt would like to establish with PCP. 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 He reported feeling dizzy and experiencing a [...] a preference to [facility] for ongoing management. Review of Systems Constitutional: Negative for appetite change. Respiratory: Positive for shortness of breath (with episodes of back pain and palpitations). Negative for chest tightness. Cardiovascular: Positive for chest pain and palpitations. Negative for leg swelling. Gastrointestinal: Negative for constipation and diarrhea. Genitourinary: Negative for difficulty urinating. Musculoskeletal: Positive for back pain. Neurological: Positive for dizziness. Negative for syncope and light-headedness. Objective Vitals: 12/24/24 0834 12/24/24 0909 Temp: 97.3 F (36.3 C) Pulse: 72 Resp: 16 SpO2: 98% BP: (!) 161/116 151/100 BMI: 35.07 BP Readings from Last 3 Encounters: 12/24/24 151/100 11/24/24 169/109 04/10/24 137/105 Wt Readings from Last 3 Encounters: 12/24/24 230 lb 9.6 oz (104.6 kg) 12/01/24 220 lb (99.8 kg) 11/24/24 220 lb (99.8 kg) BMI Readings from Last 3 Encounters: 12/24/24 35.06 kg/m 12/01/24 32.49 kg/m 11/24/24 32.49 kg/m Ht Readings from Last 3 Encounters: 12/24/24 5' 8" (1.727 m) 12/01/24 5' 9" (1.753 m) 11/24/24 5' 9" (1.753 m) Physical Exam Physical Exam Vitals and nursing note reviewed. Constitutional: Appearance: Normal appearance. HENT: Right Ear: External ear normal. Left Ear: External ear normal. Nose: Nose normal. Mouth/Throat: Mouth: Mucous membranes are moist. Eyes: Pupils: Pupils are equal, round, and reactive to light. Cardiovascular: Rate and Rhythm: Normal rate and regular rhythm. Heart sounds: Normal heart sounds, S1 normal and S2 normal. Pulmonary: Effort: Pulmonary effort is normal. Breath sounds: Normal breath sounds. Skin: General: Skin is warm and dry. Capillary Refill: Capillary refill takes less than 2 seconds. Neurological: General: No focal deficit present. Mental Status: He is alert and oriented to person, place, and time. GCS: GCS eye subscore is 4. GCS verbal subscore is 5. GCS motor subscore is 6. Psychiatric: Attention and Perception: Attention normal. Mood and Affect: Mood normal. Speech: Speech normal. Behavior: Behavior normal. Thought Content: Thought content normal. Cognition and Memory: Cognition normal. Judgment: Judgment normal. BP 151/100 | Pulse 72 | Temp 97.3 F (36.3 C) (Tympanic) | Resp 16 | Ht 5' 8" (1.727 m) | Wt 230lb 9.6 oz (104.6 kg) | SpO2 98% | BMI 35.06 kg/m | BSA 2.24 m I have reviewed the following results: Results LABS Troponin: 66 (12/18/2024) Troponin: 74 (12/18/2024) Troponin: 80 (12/18/2024) Troponin: 85 (12/18/2024) DIAGNOSTIC Cardiac catheterization: Mild nonobstructive coronary artery disease (12/18/2024) Troponin, Cardiac catheterization Assessment and Plan Assessment & Plan General Health Maintenance -Continue metformin for diabetes management. -Continue Crestor for cholesterol management. -Declined flu vaccine at this time. Hospital discharge follow-up (Primary) Type 2 diabetes mellitus without complication, without long-term current use of insulin (HCC) - TELEMEDICINE DIABETIC EYE - ALBUMIN / CREATININE RATIO, URINE; Future; Expected date: 12/24/2024 - DIABETES FOOT EXAM Special screening for malignant neoplasms, colon - COLOGUARD HTN, goal below 130/80 - CARDIOLOGY REFERRAL OP History of IN (myocardial infarction) - CARDIOLOGY REFERRAL OP Recent heart attack with episodes of tachycardia and chest pain. Mild nonobstructive coronary artery disease noted on catheterization. Currently on Imdur, aspirin, metoprolol, Crestor, and metformin.Lisinopril temporarily held. -Refer to local cardiology for further management and follow-up. -Advise patient to go to the ER if chest pain episodes occur, even if he resolves before arrival. -Consider wearing a heart monitor for two weeks to better understand the heart rhythm during these episodes. SVT (supraventricular tachycardia) (HCC) - EXTERNAL EKG 8 TO 15 DAYS; Future; Expected date: 12/25/2024 Episodes of rapid heart rate, with some episodes requiring medication to reset heart rhythm. -Advise patient on techniques to potentially break SVT at home (bearing down, blowing through a straw). -Continue metoprolol as prescribed. Wrap-Up Follow Up: Return in about 3 months (around 03/24/2025) for Labs Today. | For: Labs Today Time: I spent a total of 40-54 minutes (exact time 40 mins) on the date of service in preparation, delivery, and documentation of the care provided to Meng Ware excluding any time spent in the performance of separately billed services. Text in this note was generated using an [employer] documentation service. I discussed the use of a device to record and summarize our discussion today. All persons present during the encounter consented to its use. * Destiney Figueroa LPN - 12/24/2024 8:37 AM EST Images from the original note were not included. Socks and Shoes Removed for Annual Diabetic Foot Screening RIGHT FOOT: No Reddened, Cracking, Or Open Areas Noted. RIGHT Dorsalis Pedis Pulse: Palpable RIGHT Posterior Tibial Pulse: Palpable RIGHT Monofilament:Patient reports feeling monofilament pressure on plantar surface of foot LEFT FOOT: No Reddened, Cracking or Open Areas Noted. LEFT Dorsalis Pedis Pulse: Palpable LEFT Posterior Tibial Pulse: Palpable LEFT Monofilament:Patient reports feeling monofilament pressure on plantar surface of foot Do you need diabetic shoes: No DM Foot Exam completed today. Provider aware. Destiney Figueroa LPN The importance of having a yearly diabetic eye exam has been discussed with patient. Order and/or Referral placed along with patient instructions. Provider made aware. Destiney Figueroa LPN Diabetic Retinopathy: Evaluating Your Eyes Diabetic retinopathy is a condition that happens when diabetes damages blood vessels in the rear ofthe eye. It can lead to vision loss. To help catch it early, have a complete dilated eye exam at least once a year. During the exam, the eye healthcare provider will review your medical history, examine your eyes, and check your vision. Women who are and have pre-existing type 1 or type 2 diabetes have an increased risk of retinopathy. Women with diabetes should have an eye exam before or in the first trimester. They should continue to be monitored every trimester and for 1 year after delivery, depending on the severity of the retinopathy. The retina is the light-sensitive part of the eye that allows you to see. High blood sugar can damage blood vessels of the retina and cause them to leak or bleed. This damage can lead to abnormal blood vessel growth. This condition is called diabetic retinopathy. You may not have symptoms early in the disease. Later, there may be floaters, blurred vision, or poor night vision. There may also be partial or complete vision loss. Early cases of diabetic retinopathy can be treated by carefully controlling blood sugar, blood pressure, and cholesterol. Surgery or laser treatments may help restore lost vision. Laser surgery can shrink abnormal blood vessels or close ones that are leaking. Medicines injected in the eye can help decrease swelling of the retina. Home care Take all medicines, including insulin or oral diabetic medicine, exactly as prescribed. Follow the diet advised by your healthcare provider. If you have high cholesterol, follow a low-fat, low-cholesterol diet. Monitor blood sugars as advised. Try to achieve your ideal weight. If you smoke, quit smoking. Tobacco use worsens the effect of diabetes on your blood vessels. If you have high blood pressure, consider buying an automatic blood pressure machine. These are available at most pharmacies. Use this to monitor your blood pressure. Report your blood pressure readings to your healthcare provider. Exercise regularly. Follow-up care Follow up with your healthcare provider, or as advised. You must have a complete eye exam at least once a year, more often if needed. Untreated diabetic retinopathy can lead to complete loss of vision. Occupational therapists can help you adapt to any vision loss you have, including learning techniques to safely administer insulin. When to seek medical advice Call your healthcare provider right away if any of these occur. Increasing blurriness or any sudden changes in your vision Sudden flashes of light inside your eye New floaters (small dots or strings that seem to be moving across your field of vision) Eye pain, redness, or discharge from your eyelid New dark spots appearing in your field of vision Halos around lights Dimness of vision Partial or complete loss of vision Women with diabetes should have a complete eye exam before becoming , or as soon as possible when they find out they are . Retinopathy sometimes worsens during . Your eye exam Your eye healthcare provider uses an eye chart and other tools to check your vision. Then he or sheexamines your eyes for signs of disease. You are given eye drops to widen (dilate) your pupils. Youmay have one or more of the following tests: Tonometry to measure fluid pressure inside the eye. Slit lamp exam to allow the healthcare provider to view the structures of your eye. Ultrasound to create an image of the eye using sound waves. Ultrasound may be used if blood is found in the clear gel that fills the eye (vitreous). Ocular coherence tomography (OCT) to create an image of the retina using light waves. This shows ifthere is fluid leaking into certain parts of the eye. It can also measure the thickness of the retina. Fluorescein angiography This test may be done to check the health of the inside lining of the eye (retina). It also checks the tiny blood vessels (capillaries) that carry blood to the retina. During the test: Photographs are taken of the retina. A dye is then injected into the bloodstream through the arm or hand. The dye travels to the capillaries in the eye. More photographs are taken of the retina. The dye causes the capillaries to stand out on the photographs. You may feel brief nausea during the procedure. For a few hours after the test, your skin, eyes, and urine may appear yellow. Talk with your healthcare provider for more information about this test. Date Last Reviewed: 05/02/201619991493-5606 [facility]. [address] [place] [address], [place] [address]. All rights reserved. This information is not intended as a substitute for professional medical care. Always follow your healthcare professional's instructions. Urine albumin/creatinine ratio ordered today. Provider aware. documented in this encounter Nursing Notes * Destiney Figueroa LPN - 12/24/2024 8:32 AM EST Chief Complaint Patient presents with NEW PATIENT Pt would like to establish with PCP. documented in this encounter Miscellaneous Notes * Result Encounter Note - Re Atkinson RN - 01/13/2025 2:23 PM EST Letter sent * Result Encounter Note - Re Atkinson RN - 01/13/2025 2:23 PM EST Reason for Call: NEW PATIENT (Pt would like to establish with PCP. ) Contact: Letter Contact Type: Test Results Provider In-Basket: Yes Outcome: letter sent regarding negative cologuard Face to face time spent with Patient (minutes): 0 Total Time including non face to face (minutes): 10 Re Atkinson RN documented in this encounter Plan of Treatment Upcoming Encounters Date Type Department Care Team (Late st Contact Info) Description 02/18/2025 8:15 AM EDT [facility] [address] [place] [address] Kaylynn Coley DO [address] [place] [address] 03/26/2025 2:00 PM EDT Office Visit Family [facility] [address] [place] [phone] Karmen Morales CRNP [address] [place] [address] Scheduled Orders Name Type Priority Associated Diagnoses Orde r Schedule EXTERNAL EKG 8 TO 15 DAYS Holter Routine SVT (supraventricular tachycardia) (HCC) Expected: 12/25/2024 (Approximate), Expires: 12/24/2025 Scheduled Referrals Name Type Priority Associated Diagnoses Orde r Schedule CARDIOLOGY REFERRAL OP Referral Within 3 days (urgent) HTN, goal below 130/80 History of [place] (myocardial infarction) Ordered: 12/24/2024 Health Maintenance Due Date Last Done Comments [...] Not on filedocumented as of this encounter Procedures Procedure Name Priority Date/Time Associated Diagnosis Comments COLOGUARD Unrestricted Lab 01/07/2025 12:1 5 PM EST Special screening for malignant neoplasms, colon TELEMEDICINE DIABETIC EYE Routine 12/24/2024 Type 2 diabetes mellitus without complication, without long-term current use of insulin (HCC) documented in this encounter Results * COLOGUARD (01/07/2025 12:15 PM EST) COLOGUARD Negative Negative [facility] (CLIA #:[id number]) Comment: NEGATIVE TEST RESULT. A negative Cologuard result indicates a low likelihood that a colorectal cancer (CRC) or advanced adenoma (adenomatous polyps with more advanced pre-malignant features) is present. The chance that a person with a negative Cologuard test has a colorectal cancer is less than 1 in 1500 (negative predictive value >99.9%) or has an advanced adenoma is less than 5.3% (negative predictive value 94.7%). These data are based on a prospective cross-sectional study of 10,000 individuals at average risk for colorectal cancer who were screened with both Cologuard and colonoscopy. (Torito Cosby et al, N Engl J Med 2014;370(14):1286- 1297) The normal value (reference range) for this assay is negative. COLOGUARD RE-SCREENING RECOMMENDATION: Periodic colorectal cancer screening is an important part of preventive healthcare for asymptomatic individuals at average risk for colorectal cancer. Following a negative Cologuard result, the [place] [employer] and U.S. Multi-Society Task Force screening guidelines recommend a Cologuard re-screening interval of 3 years. References: [place] [employer] Guideline for Colorectal Cancer Screening: https://www.cancer.org/cancer/rhmjg-vivwlh-lyheqw/fhaoitlzy-xlqkzougy-ckugmdu/ac s-rec ommendations.html.; Francois ABREU, Chel CR, Dinesh KrauseK, Colorectal Cancer Screening: Recommendations for Physicians and Patients from the U.S. Multi-Society Task Force on Colorectal Cancer Screening , Am J Gastroenterology 2017; 112:1049-3592. TEST DESCRIPTION: Composite algorithmic analysis of stool DNA-biomarkers with hemoglobin immunoassay. Quantitative values of individual biomarkers are not reportable and are not associated with individual biomarker result reference ranges. Cologuard is intended for colorectal cancer screening of adults of either sex, 45 years or older, who are at average-risk for colorectal cancer (CRC). Cologuard has been approved for use by the U.S. FDA. The performance of Cologuard was established in a cross sectional study of average-risk adults aged 50-84. Cologuard performance in patients ages 45 to 49 years was estimated by sub-group analysis of near-age groups. Colonoscopies performed for a positive result may find as the most clinically significant lesion: colorectal cancer [4.0%], advanced adenoma (including sessile serrated polyps greater than or equal to 1cm diameter) [20%] or non- advanced adenoma [31%]; or no colorectal neoplasia [45%]. These estimates are derived from a prospective cross-sectional screening study of 10,000 individuals at average risk for colorectal cancer who were screened with both Cologuard and colonoscopy. (Torito Cosby et al, N Engl J Med 2014;370(14):1791-5550.) Cologuard may produce a false negative or false positive result (no colorectal cancer or precancerous polyp present at colonoscopy follow up). A negative Cologuard test result does not guarantee the absence of CRC or advanced adenoma (pre-cancer). The current Cologuard screening interval is every 3 years. ([place] [employer] and U.S. Multi-Society Task Force). Cologuard performance data in a 10,000 patient pivotal study using colonoscopy as the reference method can be accessed at the following location: www.Lumoid/results. Additional description of the Cologuard test process, warnings and precautions can be found at www.cologuard.com. Stool 01/07/2025 12:1 5 PM EST 01/09/2025 7:30 AM EST us Karmen [facility] LAB FLUID AND STOOL ORD ERABLES Final Result [facility] [employer] [address], [address] [place] [address], [place] [facility] (CLIA #:[id number]) [address] [place] [address] * ALBUMIN / CREATININE RATIO, URINE (12/24/2024 9:29 AM EST) Albumin, Random Urine 1.00 mg/dL 12/24/2024 6:24 PM EST [facility] Creatinine, Random Urine 154 mg/dL 12/24/2024 6:24 PM EST [facility] Albumin / Creatinine Ratio, Urine 6 <30 mg/g Creat 12/24/2024 6:24 PM EST [facility] Urine Urine specimen / Unknown Non-blood Collection / Unknown 12/24/2024 9:29 AM EST 12/24/2024 9:29 AM EST Narrative [facility] - 12/24/2024 6:24 PM EST Normal: <30 mg/g creatinine High: 30-300 mg/g creatinine Very High: >300 mg/g creatinine Nephrotic: >2200 mg/g creatinine K[facility] URINE ORDERABLES Fi nal Result [facility] [address] [place] [address] * (ABNORMAL) LIPID PANEL WITH DIRECT LDL IF TG IS HIGH (12/24/2024 9:27 AM EST) Triglycerides 143 <=174 mg/dL 12/24/2024 6:01 PM EST [facility] Comment: Triglyceride Reference Ranges (mg/dL): <150 Acceptable 150-174 Borderline high 175-499 High >=500 Very high Cholesterol 116 <200 mg/dL 12/24/2024 6:01 PM EST [facility] Comment: Total Cholesterol Reference Ranges (mg/dL): <200 Desirable 200-239 Borderline high >=240 High HDL Cholesterol 37(L) >39 mg/dL 6:01 PM EST [facility] Comment: HDL Cholesterol Reference Ranges (mg/dL): >=60 High (Desirable) <50 Low (Undesirable) For Females <40 Low (Undesirable) For Males Non-HDL Cholesterol 79 <=159 mg/dL 12/24/2024 6:01 PM EST [facility] Comment: Non-HDL Cholesterol Reference Range (mg/dL): <100 Target level for high risk ASCVD patient <130 Optimal for general population 130-159 Near optimal for general population 160-189 Borderline High 190-219 High >=220 Very High LDL Cholesterol 50 <=129 mg/dL 12/24/2024 6:01 PM EST [facility] Comment: LDL Cholesterol Reference Ranges (mg/dL): <70 Target level for high risk ASCVD patient <100 Optimal for general population 100-129 Near optimal for general population 130-159 Borderline high 160-189 High >=190 Very high Blood Venous blood specimen / Unknown Venipuncture / Unknown 12/24/2024 9:27 AM EST 12/24/2024 9:27 AM EST us Karmen [facility] BLOOD ORDERABLES Fi nal Result [facility] [address] [place] [address] * (ABNORMAL) COMPREHENSIVE METABOLIC PANEL (12/24/2024 9:27 AM EST) BUN 16 6 - 20 mg/dL 12/24/2024 6:01 PM EST [facility] CREATININE 1.1 0.6 - 1.2 mg/dL 12/24/2024 6:01 PM EST [facility] EGFR 77 >=60 mL/min 12/24/2024 6:01 PM EST [facility] Comment:eGFR is calculated b ased on the CKD-EPI 2020 equation. SODIUM 136 135 - 146 mmol/L 12/24/2024 6:01 PM EST [facility] POTASSIUM 4.6 3.5 - 5.1 mmol/L 12/24/2024 6:01 PM EST [facility] CHLORIDE 101 98 - 107 mmol/L 12/24/2024 6:01 PM EST [facility] CO2 23 22 - 32 mmol/L 12/24/2024 6:01 PM EST [facility] ANION GAP 12 7 - 15 mmol/L 12/24/2024 6:01 PM EST [facility] GLUCOSE 165(H) 70 - 120 mg/dL 12/24/2024 6:01 PM EST [facility] Albumin 4.7 3.8 - 5.0 g/dL 12/24/2024 6:01 PM EST [facility] AST 42 10 - 50 U/L 12/24/2024 6:01 PM EST [facility] Alkaline Phosphatase 99 35 - 130 U/L 12/24/2024 6:01 PM EST [facility] Bilirubin, Total 1.1 <=1.2 mg/dL 12/24/2024 6:01 PM EST [facility] CALCIUM 9.2 8.4 - 10.2 mg/dL 12/24/2024 6:01 PM EST [facility] Protein 7.4 6.0 - 8.3 g/dL 12/24/2024 6:01 PM EST [facility] ALT 67(H) 10 - 50 U/L 12/24/2024 6:01 PM EST [facility] Blood Venous blood specimen / Unknown Venipuncture / Unknown 12/24/2024 9:27 AM EST 12/24/2024 9:27 AM EST Karmen [facility] BLOOD ORDERABLES Fi nal Result Performing Organization Address [facility] Phone Number [facility] [address], [place] [id number] * (ABNORMAL) HEMOGLOBIN A1C (12/24/2024 9:27 AM EST) [facility] Hemoglobin A1C 8.8(H) 4.0 - 5.6 % 12/24/2024 6:36 PM EST [facility] Comment:The use of HbA1c to monitor glycemic status is based on normal hemoglobin and HbA composition. This test should not be used in patients with abnormal hemoglobin that affects the half life of the red blood cell or the in vivo glycation rates. Estimated Average Glucose 206(H) <126 mg/dL 12/24/2024 6:36 PM EST [facility] Blood Venous blood specimen / Unknown Venipuncture / Unknown 12/24/2024 9:27 AM EST 12/24/2024 9:27 AM EST Karmen [facility] BLOOD ORDERABLES Fi nal Result Performing Organization Address [facility] Co de Phone Number [facility] [address], [place] [id number] * TELEMEDICINE DIABETIC EYE (12/24/2024) 12/24/2024 Karmen DAS DIGITAL PHOTOGRAPHY Fin al Result documented in this encounter Visit Diagnoses Diagnosis Hospital discharge follow-up- Primary Other follow-up examination Type 2 diabetes mellitus without complication, without long-term current use of insulin (HCC) Special screening for malignant neoplasms, colon HTN, goal below 130/80 Unspecified essential hypertension History of [place] (myocardial infarction) Old myocardial infarction SVT (supraventricular tachycardia) (HCC) Other specified cardiac dysrhythmias documented in this encounter Care Teams Runner Man Relationship Specialty Start Date End Date Karmen Morales CRNP [address] [facility] [place] [phone] PCP - General Nurse Practitioner 12/24/24 documented as of this encounter
--- OUTSIDE RECORDS SUMMARY | 2025-02-18 01:54 | External Medical Summary | Summary of Care ---
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 Informed pt that RX is available at their pharmacy. Pt verbalized understanding and stated they will check with their pharmacy regarding this medication. Thank you, Coty Brumfield Senior Research Scientist I [facility] 01/14/2025,3:31 [...] if appropriate. Thank you, Nilda Hinton CPhT Legislative Analyst II [facility]) (Formerly Telepharmacy) 01/12/2025,4:18 PM documented in this encounter Plan of Treatment Upcoming Encounters Date Type Department Care Team (Late st Contact Info) Description 02/18/2025 8:15 AM EDT [facility] [address] [place] [address] Kaylynn Coley DO [address] [place] [address] 03/26/2025 2:00 PM EDT Office Visit Family Practice, [place] [address] [phone] Karmen Morales CRNP [address] [phone] Health Maintenance Due Date Last Done Comments [...] as of this encounter Care Teams Speech Pathology Teacher Relationship Specialty Start Date End Date Karmen Morales CRNP [address] [phone] PCP - General Nurse Practitioner 12/24/24 documented as of this encounter
--- OUTSIDE RECORDS SUMMARY | 2025-02-18 01:54 | External Medical Summary | Summary of Care ---
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 LMOM for pt to call back to [...] patient on Date (mm/dd/yyyy): 12/29/2024 at Time ([facility]): 0832 So Harley DNP, ANP- [place] [address] - [place] [facility] * Leonor Dumont LPN - 12/29/2024 8:32 AM EST New Patient Triage What is the diagnosis/reason for referral?: HTN, goal below 130/80 [I10] History of [place] (myocardial infarction) [I25.2] Enter order ID here: [id number] Specialty specific documentation: [facility] & then had episodes of SVT Discussed care plan with patient or proxy?: Yes via phone , pt having intermittent SOB & pain in upper back area , palpitations since hospital stay, pt anxious & worried/stressors increased since OK Communicated with patient on Date (mm/dd/yyyy): 12/26/24 at Time ([facility]): 0900 APPOINTMENT INFO: 02/18/25 Dr Coley INFO FROM CARDIAC REFERRAL Referred by PCP Andrew 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 He reported feeling dizzy and experiencing a rapid heart rate, which prompted him to tub puller andseek medical attention. The patient's heart [...] a preference to transfer his care to [facility] language assistant for ongoing management. EKG/ECHO/ZIO/CARDIAC TESTING [facility] E[facility]: Results for orders placed or performed during the hospital encounter of 12/18/24 ECG 12-LEAD Result Value Ref Range Ventricular rate 117 BPM Atrial Rate 117 BPM OK Interval 138 ms QRS Duration 78 ms QT Interval 308 ms QTC Calculation 429 ms Calculated P [place] 45 degrees Calculated R [place] 6 degrees Calculated T [place] 42 degrees Narrative Sinus tachycardia Otherwise normal [...] years ago, denies any prior history of OK or cardiac events. Diabetes controlled with oral [...] and felt like his heart was racing. Operator Automated Process to bedside. Vitals as above. Attempted valsalva [...] blood sent to lab. monitored inital Assessement: NURSERY HAND to bedside for patient experiencing a HR in the 180's with associated palpitations. Patient states that this has not happened to him before but had a cardiac procedure done today. Primary team bedside ordered adenosine. Patient hooked up to Idibon. First dose of adenosine (6mg) unsuccessful. 2nd [...] 01/28/2025 12:30 PM EST Office Visit Cardiology, [place] [address] [place] [address] Kaylynn Coley DO [address] [facility] [place] [address] 03/26/2025 2:00 PM EDT Office Visit Family Practice, [place] [address] [phone] Karmen Morales CRNP [address] [phone] Health Maintenance Due Date Last Done Comments [...] filedocumented as of this encounter Care Teams Kitchen Runner Relationship Specialty Start Date End Date Karmen Morales CRNP [address] [phone] PCP - General Nurse Practitioner 12/24/24 documented as of this encounter
--- OUTSIDE RECORDS SUMMARY | 2025-02-18 01:54 | External Medical Summary | Summary of Care ---
Author Name Unknown Organization [facility] Address [address] [place] [address] Phone [phone] Care Team Providers Care Glass Presser Name Role Phone Karmen Morales Primary Care Provider Reason for Visit * Reason Comments Consultation Rm 11 * Evaluate & Treat - Unlimited Visits (Within 3 days (urgent)) - Authorized Specialty Diagnoses / Procedures Referred By Contact Referred To Contact Cardiovascular Medicine / Cardiology Diagnoses HTN, goal below 130/80 History of [place] (myocardial infarction) Karmen Morales CRNP [address] [place] [address] Phone: tel: fax: Referral ID Status Reason Start Date Expiration Date Visits Requested Visits Authorized [id number] Authorized Specialty Services Required 12/24/[phone] Encounter Details Date Type Department Care Team (Late st Contact Info) Description 01/28/2025 12:30 PM EST [facility] [address] [facility] [address] [facility] [id number] SVT (supraventricular tachycardia) (HCC)*; Coronary artery disease involving [place] coronary artery of [place] heart without angina pectoris; HTN, goal below 130/80; Type 2 diabetes mellitus without complication, without long-term current use of insulin (HCC) Allergies No known active allergiesdocumented as of this encounter (statuses as of 02/17/2025) Medications Nitroglycerin 0.4 MG Sublingual Tablet Sublingual [...] the morning. 90 Tablet 3 5 Active Olmesartan Medoxomil-HCTZ 20-12.5 MG Oral TabletIndication s:HTN, goal below 130/80 Take 2 Tablets by mouth in the morning. 180 Tablet 3 4 01/28/20 25 Discontinu ed(Medicat ion List Clean Up) Cephalexin 500 MG Oral Capsule Take 1 Capsule by mouth in the morning and 1 Capsule at noon and 1 Capsule in the evening and 1 Capsule before bedtime. Do all this for 7 days. 28 Capsule 4 01/28/20 25 Discontinu ed(Medicat ion List Clean Up) Hospital, Clinic, or Other Facility Administered Medication [...] as of this encounter (statuses as of 02/17/2025) Active Problems Problem Noted Date Diagnosed Date Type 2 diabetes mellitus wit hout complication, without long-term current use of insulin 04/13/2024 HTN, goal below 130/80 12/25/2018 Obesity, Class II, BMI 35-39.9, isolated (see ac tual BMI) 12/25/2018 Angina pectoris 12/25/2018 documented as of this encounter (statuses as of 02/17/2025) Resolved Problems Problem Noted Date Diagnosed Date Resolved Date Prediabetes 12/15/2018 05/14/2024 Overview: Per Prediabetes protocol #1 documented as of this encounter (statuses as of 02/17/2025) Immunizations Name Administration Dates Next Due TDAP [...] 12/24/2024 Does the household have a re lar source of income? 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) and sudden onset lightheadedness and dizziness with near syncope and palpitations and chest tightness; he was found to be in SVT and got adenosine but since he spilled troponins the underwent a cardiac cath and then post cath he had another episode requiring more adenosine; and then another episode during sleep at 1am which he did not feel the staff woke him up but this one broke on its own; he was discharged on metoprolol, imdur and crestor He does occasionally drink energy drinks but did not have one that morning; he says he was hydratedand had eaten Last week he another episode and he was able to break it with vagal maneuvers Pt had a zio patch where he had a symptomatic brief episode PMH: Patient Active Problem List Diagnosis HTN, goal below 130/80 Obesity, Class II, BMI 35-39.9, isolated (see actual BMI) Angina pectoris (HCC) Type 2 diabetes mellitus without complication, without long-term current use of insulin (HCC) Current Outpatient Medications Medication Sig Dispense Refill Nitroglycerin 0.4 MG Sublingual Tablet Sublingual (Nitrostat) Place 1 Tablet under the tongue every5 minutes as needed for Pain, Chest. metFORMIN HCl 500 MG Oral Tablet (Glucophage) Take 2 Tablets by mouth 2 times a day with morning and evening meals. 120 Tablet 5 Isosorbide Mononitrate ER 30 MG Oral Tablet Extended Release 24 Hour (Imdur) Take 1 Tablet by mouthin the morning. 90 Tablet 3 Metoprolol Tartrate 25 MG Oral Tablet (Lopressor) Take 0.5 Tablets by mouth in the morning and 0.5 Tablets before bedtime. 90 Tablet 0 Aspirin 81 MG Oral Tablet Chewable Take 1 Tablet by mouth in the morning. 90 Tablet 3 Rosuvastatin Calcium 20 MG Oral Tablet (Crestor) Take 1 Tablet by mouth in the morning. 90 Tablet 3 Current Facility-Administered Medications Medication Dose Route Frequency Provider Last Rate Last Admin albuterol (PROVENTIL HFA) inhaler 4 Puff 4 Puff Inhalation Q4H PRN Akash Stacy PA-C albuterol sulfate (PROVENTIL) (2.5 MG/3ML) 0.083% inhalation solution 2.5 mg 2.5 mg Nebulizer Q4H PRN Akash Stacy PA-C 2.5 mg at 03/16/19 1228 Past Medical History: Diagnosis Date HTN (hypertension) Type 2 diabetes mellitus (HCC) 04/10/2024 Past Surgical History: Procedure Laterality Date BRONCHOSCOPY, DX W/ EBUS, 1-2 NODES N/A 12/11/2018 BRONCHOSCOPY, RIGID OR FLEXIBLE, INCLUDING FLUOROSCOPIC GUIDANCE, WHEN PERFORMED; WITH EBUS GUIDED TRANSTRACHEAL AND/OR TRANSBRONCHIAL SAMPLING (EG, ASPIRATION[S]/BIOPSY[IES]), 1 OR 2 MEDIASTINAL AND/OR HILAR LYMPH NODE STATIONS OR STRUCTURES performed by Jarret Verduzco MD at OR [facility] NONE Review of patient's allergies indicates: No Known Allergies Family History Problem Relation Name Age of Onset Cancer Mother 26 bladder, uterine Diabetes Father Coronary Artery disease Father Alcohol and Other Disorders Associated Father Heart attack Father COPD Father Hypertension Sister Dorthea Other (trouble eating, vomiting) Brother Jaime No Known Problems Brother Jassi No Known Problems Brother Matti Family Status Relation Status Mo Fa Sis Alive Bro Alive Bro Alive Bro Alive Social History Socioeconomic History Marital status: Spouse name: Not on file Number of children: Not on file Years of education: Not on file Highest education level: Not on file Occupational History 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 Tobacco Use Smoking status: Former Current packs/day: 2.00 Average packs/day: 2.0 packs/day for 6.0 years (12.0 ttl pk-yrs) Types: Cigarettes Smokeless tobacco: Former Types: Chew Tobacco comments: quit 20 years ago Substance and Sexual Activity Alcohol use: No Comment: Rare Drug use: No Sexual activity: Not on file Other Topics Concern Not on file Social History Narrative 6 cats and fish No mold Oil heating Exposure to sand dust Social Needs Financial Resource Strain: Low Risk (12/24/2024) Financial Resource Strain Do you have any trouble paying for your medications, or do you think you might in the future? (Adult - for ages 18 years and over): No Does your family have trouble paying for medicine? (Household - for ages 0-17 years): Not on file Food Insecurity: No Food Insecurity (12/24/2024) Food Insecurity Worried About Running Out of Food in the Last Year: Never true Ran Out of Food in the Last Year: Never true Do you need food for this week? (Adult - for ages 18 years and over): No Transportation Needs: No Transportation Needs (12/24/2024) Transportation Needs Do you have trouble getting a ride to medical visits or work? (Adult - for ages 18 years and over):Not on file Does your family have a hard time getting a ride to doctors visits? (Household - for ages 0-17 years): Not on file Has lack of transportation kept you from medical appointments, meetings, work, or from getting things needed for daily living? Check all that apply. (Adult - for ages 18 years and over): No Do you (or your family) have trouble finding or paying for a ride (transportation)? (Household - for ages 0-17 years): Not on file Social Connections: Socially Integrated (12/24/2024) Social Connections How often do you feel lonely or isolated from those around you? (Adult - for ages 18 years and over): Never Housing Stability: Low Risk (12/24/2024) Housing Stability Do you currently live in a penitentiary or have no steady place to sleep at night? (Adult - for ages 18 years and over): No Do you think you are at risk of becoming homeless? (Adult - for ages 18 years and over): Not on file Does your family worry about paying for your home or becoming homeless? (Household - for ages 0-17 years): Not on file Are you homeless or worried that you might be in the future? (Adult - for ages 18 years and over): No Are you (or your family) homeless or worried that you might be in the future? (Household - for ages0-17 years): Not on file Review of Systems Constitutional: Negative for activity change, chills, fatigue, fever and unexpected weight change. HENT: Negative for postnasal drip, rhinorrhea and sinus pressure. Eyes: Negative for visual disturbance. Respiratory: Negative for shortness of breath. Cardiovascular: Negative for chest pain, palpitations and leg swelling. Gastrointestinal: Negative for blood in stool, constipation, diarrhea, nausea and vomiting. Genitourinary: Negative for dysuria and hematuria. Musculoskeletal: Negative for gait problem. Skin: Negative for rash. Neurological: Negative for dizziness, syncope and light-headedness. Objective Resp 16 | Ht 1.753 m (5' 9") | Wt 103.4 kg (228 lb) | BMI 33.67 kg/m | BSA 2.24 m Physical Exam Vitals and nursing note reviewed. Constitutional: General: He is awake. Appearance: Normal appearance. He is well-developed. HENT: Head: Normocephalic and atraumatic. Eyes: General: No scleral icterus. Extraocular Movements: Extraocular movements intact. Neck: Vascular: Normal carotid pulses. No carotid bruit or JVD. Cardiovascular: Rate and Rhythm: Normal rate and regular rhythm. Pulses: Carotid pulses are 2+ on the right side and 2+ on the left side. Radial pulses are 2+ on the right side and 2+ on the left side. Posterior tibial pulses are 2+ on the right side and 2+ on the left side. Heart sounds: S1 normal and S2 normal. No murmur heard. Pulmonary: Effort: Pulmonary effort is normal. Breath sounds: Normal breath sounds. No decreased breath sounds, wheezing, rhonchi or rales. Abdominal: Palpations: Abdomen is soft. Musculoskeletal: Cervical back: Neck supple. Right lower leg: No edema. Left lower leg: No edema. Skin: General: Skin is warm and dry. Neurological: General: No focal deficit present. Mental Status: He is alert and oriented to person, place, and time. Psychiatric: Attention and Perception: Attention normal. Mood and Affect: Mood normal. Speech: Speech normal. Behavior: Behavior normal. Behavior is cooperative. Thought Content: Thought content normal. Cognition and Memory: Cognition normal. Judgment: Judgment normal. RESULTS: Oscaro Patch: 12/24/2024: CONCLUSIONS: Final Interpretation 1. Predominant rhythm sinus with average HR 71; slowest HR 43bpm at 9:28am consistent with sinus bradycardia; fastest HR 190bpm at 2:19pm consistent with WCT 2. Rare APC; with one 4 beat run of PAT. 3. Rare VPC: with one 10 beat run of WCT. 4. The patient reported symptoms 10 times when in SR with PVC or with the WCT. ECGS: 12/19/2024: Under care everywhere so only have report SR 93bpm 12/18/2024: Under care everywhere so only have report SR 93bpm PVC 12/18/2024: Under care everywhere so only have report SVT 182bpm ST & T wave abnormality 12/18/2024: Under care everywhere so only have report SVT 192bpm 12/18/2024: Under care everywhere so only have report ST 101bpm 12/18/2024: Under care everywhere so only have report ST 117bpm 04/10/2024: SR 95bpm 11/26/2018: SR 81bpm 02/16/2018: SR 92bpm Possible WPW pattern 2017: SR 96bpm WPW pattern Cardiac MRI: 01/13/2025: Interpretation Summary 1. Cardiac MRI findings of normal biventricular systolic function. No edema noted on T2 para metricmapping. Extracellular volume calculation is within normal range at 26% (normal 25-27%). No overt disease specific enhancement patterns noted on late gadolinium enhanced imaging. 2. The left ventricular systolic function is normal. The calculated LV ejection fraction is 55%. 3. The right ventricular systolic function is normal. The right ventricle is normal in size. The calculated RV ejection fraction is 52%. 4. Known pulmonary nodule in the superior segment of the left lower lobe measures up to 18 mm on this exam, probably marginally increased in size from 2019, and recently evaluated by outside CT and more remote PET/CT and bronchoscopy. Cardiac Catheterization: 12/18/2024: Under care everywhere so only have report 1. Mild coronary artery disease with visibly sluggish flow likely secondary to microvascular dysfunction. 2. Normal left ventricular end-diastolic pressure. 3. Elevated troponin without a culprit lesion to confirm a true non ST segment elevation acute myocardial infarction. The elevated troponin is likely related to a type [address] segment elevation acute myocardial infarction secondary to oxygen supply/demand mismatch in the setting of significant microvascular dysfunction in the setting of tachycardia and acute illness. Echocardiogram: Under care everywhere so only have report 12/19/2024: Conclusions: 1. Normal LV size and systolic function. LVEF 66.2%. 2. No regional wall motion abnormalities. 3. Grade I diastolic dysfunction with normal left atrial pressure. 4. Normal RV size and systolic function. 5. Indeterminate RV systolic pressure and right atrial pressure. 6. Normal biatrial size. 7. No significant valvular heart disease. 8. Normal aortic root and ascending aorta size. 9. No pericardial effusion. Treadmill stress test: 12/09/2018: The treadmill exercise test was normal. There was normal exercise heart rate and blood pressure response without symptoms or EKG evidence of ischemia. The patient exercised on a Jay protocol for 7 minutes and 30 seconds? achieving 111% MPHR with a functional capacity of 7 METS. The patient did have a hypertensive response to exercise with a peak BP of 218/109. CT PE protocol: 12/18/2024: FINDINGS: No pulmonary embolus or aortic dissection identified. Coronary artery calcifications are present. There is a 1.5 cm nodule in the superior segment of the left lower lobe. It has benign imaging characteristics and may represent a hamartoma. No other suspicious nodules or adenopathy identified. No consolidations or pleural effusions or pneumothoraces seen. There is diffuse fatty infiltration of the liver. PET Scan: 12/18/2018: IMPRESSION Known mass in the superior segment of left lower lobe is metabolically active, and has developed associated surrounding ground-glass component, since previous chest CT from 9 days ago. A benign infectious/ inflammatory processes is favored over malignant neoplasm (however the latter is not excluded), given the rapid interval change. Known left hilar lymphadenopathy is also metabolically active and may be reactive. Recommend follow-up chest CT, preferably with intravenous contrast, in 6-[address] Chest: 12/09/2018: IMPRESSION 1. An irregular subpleural nodule in the superior segment of the left lower lobe measuring approximately 1.6 x 1.6 cm, indeterminate. Consider further evaluation with a PET-CT and/or biopsy. 2. Multiple mildly enlarged left hilar lymph nodes, indeterminate. Attention on the follow-up PET-CT suggested. Multiple subcentimeter mediastinal and right hilar lymph nodes also noted. Lab Work Reviewed: Component Latest Ref Rng 12/24/2024 02/16/2025 BUN 6 - 20 mg/dL 16 16 CREATININE 0.6 - 1.2 mg/dL 1.1 1.0 EGFR >=60 mL/min 77 90 SODIUM 135 - 146 mmol/L 136 141 POTASSIUM 3.5 - 5.1 mmol/L 4.6 4.7 CHLORIDE 98 - 107 mmol/L 101 102 CO2 22 - 32 mmol/L 23 27 ANION GAP 7 - 15 mmol/L 12 12 GLUCOSE 70 - 120 mg/dL 165 (H) 143 (H) Albumin 3.8 - 5.0 g/dL 4.7 AST 10 - 50 U/L 42 Alkaline Phosphatase 35 - 130 U/L 99 Bilirubin, Total <=1.2 mg/dL 1.1 CALCIUM 8.4 - 10.2 mg/dL 9.2 9.1 Protein 6.0 - 8.3 g/dL 7.4 ALT 10 - 50 U/L 67 (H) WBC 4.00 - 10.80 K/uL 5.27 RBC 4.50 - 5.25 M/uL 5.30 HGB 14.0 - 16.8 g/dL 16.2 HCT 40.0 - 48.4 % 47.8 MCV 82.0 - 99.5 fL 90.2 MCH 27.0 - 34.0 pg 30.6 MCHC 32.0 - 36.0 g/dL 33.9 RDW 11.5 - 15.5 % 11.8 PLT 140 - 400 K/uL 237 MPV 6.6 - 11.1 fL 10.4 nRBCs <=0 /100 WBCs 0 Triglycerides <=174 mg/dL 143 Cholesterol <200 mg/dL 116 HDL Cholesterol >39 mg/dL 37 (L) Non-HDL Cholesterol <=159 mg/dL 79 LDL Cholesterol <=129 mg/dL 50 Hemoglobin A1C 4.0 - 5.6 % 8.8 (H) Estimated Average Glucose <126 mg/dL 206 (H) ASSESSMENT: SVT (post cath from NSTEMI) 12/18/2024 terminated with adenosine hospitalized at [facility] CAD h/o NSTEMI; non-obstructive disease by cath 12/18/2024 at [facility] HTN DM Lung nodule FMH premature CAD (father-[place] 57y/o ) PLAN: -I explained the pathophysiology of SVT to the patient as well as different possible treatment options (doing nothing, vagal maneuvers, medications or ablation procedure); all of her questions were answered. -Recommend EPS with possible ablation -Discussed procedure and risks which include but are not limited to arrhythmias, strokes, heart attacks, injury to with blood vessels, chamber of the heart or injury to [place] electrical system requiring permanent pacemaker, , bleeding and infection with the patient and his ; they expressed an understanding and wish to proceed. -Procedure 02/17 -hold metoprolol morning of procedure -Hold metformin morning of procedure -EP f/u 1 month after procedure Kaylynn Coley DO documented in this encounter Nursing Notes * Nahomi Skinner NRCMA - 01/28/2025 1:03 PM EST Patient was identified by name and date of . Examination Room: Name: Meng Ware Date of : (1965). Reason for Visit: consult Interim Hospitalization(s): yes- [place] for [place] per pt Problems/Concerns: pain between shoulder blades Chest Pain/SOB: none currently Medications reviewed and are up to date via: [employer] is a way you can talk to your provider online through e-mail. Would you like to sign up? I can activate it for you? ALREADY ACTIVE Do you have video visit capabilities (email and smart phone)? No. Would you be interested in 6 or 12 return visit being scheduled as a video visit if the provider approves? No Patient was instructed to not get up on the exam table/exam chair until directed and assisted by their provider; patient is to remain seated in the chair/ wheelchair/ exam table/ exam chair for fall prevention and safety reasons. Patient is aware to have assistance to step down off exam table/exam chair with personnel. Patient voiced full comprehension of instructions. PRATIBHA Champion documented in this encounter Plan of Treatment Upcoming Encounters Date Type Department Care Team (Late st Contact Info) Description 03/26/2025 2:00 PM EDT Office Visit [facility] [address] [place] [id number] Karmen Morales CRNP [address] [place] [address] 04/01/2025 3:30 PM EDT Office Visit Cardiology, [facility] [address] [facility] [place] [id number] Annabella Elizalde CRNP [address] [facility] [place] [address] Scheduled Referrals Name Type Priority Associated Diagnoses Orde r Schedule CARDIOLOGY REFERRAL OP Referral Within 3 days (urgent) HTN, goal below 130/80 History of [place] (myocardial infarction) Ordered: 12/24/2024 Health Maintenance Due [...] 12/24/2024 Diabetic Foot Exam 12/24/2025 12/24/2024 GFR 02/16/2026 02/16/2025, 12/03, 12/19/2024, Additional history exists Cologuard 01/13/2028 01/13/2025, [...] as of this encounter Visit Diagnoses Diagnosis SVT (supraventricular tachycardia) (HCC)- Primary Other specified cardiac dysrhythmias Coronary artery disease involving [place] coronary artery of [place] heart without angina pectoris HTN, goal below 130/80 Unspecified essential hypertension Type 2 diabetes mellitus without complication, without long-term current use of insulin (HCC) documented in this encounter Care Teams Glass Presser Relationship Specialty Start Date End Date Karmen Morales CRNP [address] [place] [id number] PCP - General Nurse Practitioner 12/24/24 documented as of this encounter
--- OUTSIDE RECORDS SUMMARY | 2025-02-18 01:55 | External Medical Summary | Summary of Care ---
Author Name Unknown Organization [facility] Address [address] [place] [address] Phone [phone] Care Team Providers Care Helminthology Teacher Name Role Phone Karmen Kang Primary Care Provider Reason for Visit * Reason Onset Date Comments Medication Refill 01/07/2025 Encounter Details Date Type Department Care Team (Late st Contact Info) Description 01/07/[address] [facility] [address] [place] [address] Karmen Kang CRNP [address] [place], [place] [phone] Allergies No known active allergiesdocumented as of this encounter (statuses as of 01/08/2025) Medications Olmesartan Medoxomil-HCTZ 20-12.5 MG Oral TabletIndicatio ns:HTN, goal below 130/80 Take 2 Tablets by mouth in the morning. 180 Tablet 3 4 Active Additional Information Patient not taking.Reported on 12/24/2024 Nitroglycerin 0.4 MG Sublingual Tablet Sublingual (Nitrostat) Place 1 Tablet under the tongue every 5 minutes as needed for Pain, Chest. 5 Active Rosuvastatin Calcium 20 MG Oral Tablet (Crestor) Take 1 Tablet by mouth in the morning. 5 Active metFORMIN HCl 500 MG Oral [...] Tablets before bedtime. 90 Tablet 5 Active Isosorbide Mononitrate ER 30 MG Oral Tablet Extended Release 24 Hour (Imdur) Take 1 Tablet by mouth in the morning. 5 025 Discontin ued(Refil l) Metoprolol Tartrate 25 MG Oral Tablet (Lopressor) Take 0.5 Tablets by mouth in the morning and 0.5 Tablets before bedtime. 5 025 Discontin ued(Refil l) Hospital, Clinic, [...] as of this encounter (statuses as of 01/08/2025) Active Problems Problem Noted Date Diagnosed Date Type 2 diabetes mellitus wit hout complication, without long-term current use of insulin 04/13/2024 HTN, goal below 130/80 12/25/2018 Obesity, Class II, BMI 35-39.9, isolated (see ac tual BMI) 12/25/2018 Angina pectoris 12/25/2018 documented as of this encounter (statuses as of 01/08/2025) Resolved Problems Problem Noted Date Diagnosed Date Resolved Date Prediabetes 12/15/2018 05/14/2024 Overview: Per Prediabetes protocol #1 documented as of this encounter (statuses as of 01/08/2025) Immunizations Name Administration Dates Next Due TDAP [...] 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 Authorizing Provider: KARMEN KANG Metoprolol Tartrate 25 MG Oral Tablet (Lop*90 Tab*0 Sig: Take 0.5 Tablets by mouth in the morning and 0.5 Tablets before bedtime. Authorizing Provider: KARMEN KANG * Telephone Encounter - Kaye Benoit [facility] - 01/08/2025 7:57 AM EST Pending Prescriptions: Disp Refills Isosorbide Mononitrate ER 30 MG Oral Table*90 Tab*3 Sig: Take 1 Tablet by mouth in the morning. Metoprolol Tartrate 25 MG Oral Tablet (Lop*90 Tab*0 Sig: Take 0.5 Tablets by mouth in the morning and 0.5 Tablets before bedtime. * Telephone Encounter - Kaye Benoit RPh - 01/08/2025 7:57 AM EST Pharmacists cannot authorize refills for meds listed as "historical" in chart. Please approve if appropriate. Thank you, Kaye Benoit PharmD. Clinical Pharmacist Pharmacy Refill Call Center 01/08/2025, 7:57 AM * Telephone Encounter - Morro Still, milking worker - 01/07/2025 1:03 PM EST Medication(s) is/are listed as "Historical". Pt confirmed the current dosage, directions, and qty that they are normally prescribed, as reflected in the pending order below. This is also indicated from encounter on 12/20/24, 12/19/24. Confirmed patient has been seen within the last year.. Please review and approve if appropriate. Pending Prescriptions: Disp Refills Isosorbide Mononitrate ER 30 MG Oral Tabl*90 Tab*3 Sig: Take 1 Tablet by mouth in the morning. Metoprolol Tartrate 25 MG Oral Tablet (Lo*90 Tab*0 Sig: Take 0.5 Tablets by mouth in the morning and 0.5 Tablets before bedtime. Last Visit: 12/24/2024 (in office), Visit date not found (telemedicine) Next Visit: 03/26/2025 If no future appointments scheduled, and last appointment is greater than a year ago, please schedule patient for a follow-up appointment Last date the medication was ordered: Historical Patient Phone Numbers Labs: Lab Results Component Value Date/Time CREAT 1.1 12/24/2024 09:27 AM CREAT 1.0 12/05/2018 10:01 AM POTASSIUM 4.6 12/24/2024 09:27 AM POTASSIUM 4.1 12/19/2024 03:45 AM POTASSIUM 4.3 11/26/2018 02:05 PM TSH 3.35 12/05/2018 10:01 AM LDL 50 12/24/2024 09:27 AM LDL 100 12/05/2018 10:01 AM ALT 67 (H) 12/24/2024 09:27 AM HGBA1C 8.8 (H) 12/24/2024 09:27 AM HGBA1C 8.5 (H) 12/18/2024 01:30 PM HGBA1C 5.7 (H) 12/05/2018 10:01 AM documented in this encounter Plan of Treatment Upcoming Encounters Date Type Department Care Team (Late st Contact Info) Description 01/13/2025 9:30 AM EST Imaging Radiology [facility] 1st [facility] [address] [place] [phone] 02/18/2025 8:15 AM EDT Office Visit Cardiology, [place] [address] [place] [address] Kaylynn Coley DO [address] [place] [address] 03/26/2025 2:00 PM EDT Office Visit Family Practice, [place] [address] [place] [phone] Karmen Kang CRNP [address] [place] [phone] Health Maintenance Due Date Last Done Comments HIV Screening 1982 Hepatitis C Screening 1985 Hepatitis B Vaccine (1 of 3 - 19+ 3-dose series) 1986 Pneumococcal Vaccine: 50+ Years (1 of 2 - PCV) 1986 Cologuard 2012 Colonoscopy 2012 Colorectal Cancer Screening 2012 Fecal Occult Blood Test 2012 Sigmoidoscopy 2012 Zoster Vaccines (1 of 2) 2017 COVID-19 Vaccine ( season) 2024 Influenza Vaccine (FLU shot) (#1) 2024 HbA1c 06/23/2025 12/24/2024, 12/02, 01/10/2021, Additional history exists Albumin/Creatinine Ratio 12/24/2025 12/24/2024 Depression Screening 12/24/2025 12/24/2024 Diabetic Eye Exam 12/24/2025 12/24/2024 Diabetic Foot Exam 12/24/2025 12/24/2024 GFR 12/24/2025 12/24/2024, 12/02, 12/19/2024, Additional history exists DTap/Tdap Vaccines (2 - Td or Tdap) 05/07/2032 05/07/2022 HPV (Gardasil) Vaccine Aged Out No lo nger eligible based on patient's age to complete this topic MENINGOCOCCAL (MENACTRA/MENVEO) Aged Out No longer eligible based on patient's age to complete this topic documented as of this encounter Medical Devices Not on filedocumented as of this encounter Care Teams Helminthology Teacher Relationship Specialty Start Date End Date Karmen Kang CRNP [address] [place] [id number] PCP - General Nurse Practitioner 12/24/24 documented as of this encounter
--- OUTSIDE RECORDS SUMMARY | 2025-02-18 01:55 | External Medical Summary | Summary of Care ---
Author Name Unknown Organization [facility] Address [address] [place] [address] Phone [phone] Care Team Providers Care Wastewater Project Engineer Name Role Phone Karmen Morales PIPPA Primary Care Provider Reason for Visit * Reason Onset Date Comments Nurse Documentation 01/07/2025 CMRI/Triaged Encounter Details Date Type Department Care Team (Late st Contact Info) Description 01/07/2025 Telephone Cardiac Studies [facility] [place] [address] [place] [address] Chanda Wiley, PHIL Nurse Documentation (CMRI/Triaged) Allergies No known active allergiesdocumented as of this encounter (statuses as of 01/07/2025) Medications Olmesartan Medoxomil-HCTZ 20-12.5 MG Oral TabletIndication s:HTN, goal below 130/80 Take 2 Tablets by mouth in the morning. 180 Tablet 3 4 Active Additional Information Patient not taking.Reported on 12/24/2024 Isosorbide Mononitrate ER 30 MG Oral Tablet Extended Release 24 Hour (Imdur) Take 1 Tablet by mouth in the morning. 5 Active Metoprolol Tartrate 25 MG Oral Tablet (Lopressor) Take 0.5 Tablets by mouth in the morning and 0.5 Tablets before bedtime. 5 Active Nitroglycerin 0.4 MG Sublingual Tablet Sublingual (Nitrostat) [...] the morning. 90 Tablet 3 5 Active Hospital, Clinic, or Other Facility Administered [...] as of this encounter (statuses as of 01/07/2025) Active Problems Problem Noted Date Diagnosed Date Type 2 diabetes mellitus wit hout complication, without long-term current use of insulin 04/13/2024 HTN, goal below 130/80 12/25/2018 Obesity, Class II, BMI 35-39.9, isolated (see ac tual BMI) 12/25/2018 Angina pectoris 12/25/2018 documented as of this encounter (statuses as of 01/07/2025) Resolved Problems Problem Noted Date Diagnosed Date Resolved Date Prediabetes 12/15/2018 05/14/2024 Overview: Per Prediabetes protocol #1 documented as of this encounter (statuses as of 01/07/2025) Immunizations Name Administration Dates Next Due TDAP [...] 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 A message has been sent to the schedulers to please call the patient and they will need labs drawn within 30 days prior to the date of the CMRI. Chanda Wiley streetsweeper operator Imaging Nurse [phone] documented in this encounter Plan of Treatment Upcoming Encounters Date Type Department Care Team (Late st Contact Info) Description 01/13/2025 9:30 AM EST Imaging Radiology [address] [place] [phone] 02/18/2025 8:15 AM EDT Office Visit Cardiology, [place] [address] [place] [address] Kaylynn Coley DO [address] [place] [address] 03/26/2025 2:00 PM EDT Office Visit Family Practice, [place] [address] [place] [phone] Karmen Morales CRNP [address] [place] [phone] Health Maintenance Due Date Last Done Comments [...] filedocumented as of this encounter Care Teams Wastewater Project Engineer Relationship Specialty Start Date End Date Karmen Morales CRNP [address] [place] [phone] PCP - General Nurse Practitioner 12/24/24 documented as of this encounter
--- OUTSIDE RECORDS SUMMARY | 2025-02-18 01:55 | External Medical Summary | Summary of Care ---
Author Name Unknown Organization [facility] Address [address] [place] [address] Phone [phone] Care Team Providers Care Political Scientist Name Role Phone Karmen Morales Primary Care Provider Reason for Visit * Reason Onset Date Comments Return To Work 01/05/2025 Encounter Details Date Type Department Care Team (Late st Contact Info) Description 01/05/2025 Telephone [facility] [address] [place] [address] Karmen Morales CRNP [address] [place], [place] [phone] Return To Work Allergies No known active allergiesdocumented as of this encounter (statuses as of 01/06/2025) Medications Olmesartan Medoxomil-HCTZ 20-12.5 MG Oral TabletIndication s:HTN, goal below 130/80 Take 2 Tablets by mouth in the morning. 180 Tablet 3 4 Active Additional Information Patient not taking.Reported on 12/24/2024 Aspirin 81 MG Oral Tablet Chewable Take 1 Tablet by mouth in the morning. 5 Active Isosorbide Mononitrate ER 30 MG [...] evening meals. 120 Tablet 5 5 Active Hospital, Clinic, or Other Facility [...] as of this encounter (statuses as of 01/06/2025) Active Problems Problem Noted Date Diagnosed Date Type 2 diabetes mellitus wit hout complication, without long-term current use of insulin 04/13/2024 HTN, goal below 130/80 12/25/2018 Obesity, Class II, BMI 35-39.9, isolated (see ac tual BMI) 12/25/2018 Angina pectoris 12/25/2018 documented as of this encounter (statuses as of 01/06/2025) Resolved Problems Problem Noted Date Diagnosed Date Resolved Date Prediabetes 12/15/2018 05/14/2024 Overview: Per Prediabetes protocol #1 documented as of this encounter (statuses as of 01/06/2025) Immunizations Name Administration Dates Next Due TDAP [...] ages 0-17 years) Not on file 12/24/2024 Sex and Gender Information Value Date Recorded Sex Assigned at Not on file Legal Sex Male 6:02 AM EST Gender Identity Not on file Sexual Orientation Not on file 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 Please assist, Thanks! * Telephone Encounter - So Crow OSA - 01/05/2025 3:41 PM EST School or Work Note?: Work Has patient been seen for the current issue?Yes, patient has been seen for Heart attack causing missed work/school (Call Details not required). Dates Missed: 12/11/24 Date Returnin01/06/25 Note will be: Picked up at clinic Fax number or phone number to call when note is completed: [phone] documented in this encounter Plan of Treatment Upcoming Encounters Date Type Department Care Team (Late st Contact Info) Description 02/18/2025 8:15 AM EDT [facility] [address] [place] [address] Kaylynn Coley DO [address] [place] [address] 03/26/2025 2:00 PM EDT Office Visit Family [facility] [place] [address] [place] [phone] Karmen Morales CRNP [address] [place] [address] Health Maintenance Due Date Last Done Comments [...] as of this encounter Visit Diagnoses Diagnosis History of [place] (myocardial infarction)- Primary Old myocardial infarction documented in this encounter Care Teams Political Scientist Relationship Specialty Start Date End Date Karmen Morales CRNP [address] [place] [phone] PCP - General Nurse Practitioner 12/24/24 documented as of this encounter
--- OUTSIDE RECORDS SUMMARY | 2025-02-18 01:55 | External Medical Summary | Summary of Care ---
Author Name Unknown Organization [facility] Address [address] [place] [address] Phone [phone] Care Team Providers Care Information Systems Professor Name Role Phone Karmen Morales PIPPA Primary Care Provider Reason for Visit * Reason Onset Date Comments Referral 12/29/2024 Encounter Details Date Type Department Care Team (Late st Contact Info) Description 12/29/2024 New Patient Triage (COMMISSARY REPRESENTATIVE USE ONLY) Cardiology, [address] [phone] Alysha Wu CRNP [address] [place] [address] Referral Allergies No known active allergiesdocumented as of this encounter (statuses as of 12/31/2024) Medications Olmesartan Medoxomil-HCTZ 20-12.5 MG Oral TabletIndication [...] as of this encounter (statuses as of 12/31/2024) Active Problems Problem Noted Date Diagnosed Date Type 2 diabetes mellitus wit hout complication, without long-term current use of insulin 04/13/2024 HTN, goal below 130/80 12/25/2018 Obesity, Class II, BMI 35-39.9, isolated (see ac tual BMI) 12/25/2018 Angina pectoris 12/25/2018 documented as of this encounter (statuses as of 12/31/2024) Resolved Problems Problem Noted Date Diagnosed Date Resolved Date Prediabetes 12/15/2018 05/14/2024 Overview: Per Prediabetes protocol #1 documented as of this encounter (statuses as of 12/31/2024) Immunizations Name Administration Dates Next Due TDAP [...] 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 Communicated with patient on Date (//yyyy): 12/29/2024 at Time ([facility]): 0832 So Harley DNP, [place] [address] - [place] - [facility] * Leonor Dumont LPN - 12/29/2024 8:32 AM EST New Patient Triage What is the diagnosis/reason for referral?: HTN, goal below 130/80 [I10] History of MA (myocardial infarction) [I25.2] Enter order ID here: [id number] Specialty specific documentation: [facility] & then had episodes of SVT Discussed care plan with patient or proxy?: Yes via phone , pt having intermittent SOB & pain in upper back area , palpitations since hospital stay, pt anxious & worried/stressors increased since MA Communicated with patient on Date (//yyyy): 12/26/24 at Time ([facility]): 0900 APPOINTMENT INFO: 02/18/25 Dr Coley INFO FROM CARDIAC REFERRAL Referred by PCP Andrew 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 He reported feeling dizzy and experiencing a rapid heart rate, which prompted him to tack puller machine andseek medical attention. The patient's heart rate [...] a preference to transfer his care to [facility] care nurse practitioner for ongoing management. EKG/ECHO/ZIO/CARDIAC TESTING [facility] EKG: Results for orders placed or performed during the hospital encounter of 12/18/24 ECG 12-LEAD Result Value Ref Range Ventricular rate 117 BPM Atrial Rate 117 BPM ID Interval 138 ms QRS Duration 78 ms QT Interval 308 ms QTC Calculation 429 ms Calculated P Banks 45 degrees Calculated R Banks 6 degrees Calculated T Banks 42 degrees Narrative Sinus tachycardia Otherwise normal [...] years ago, denies any prior history of MA or cardiac events. Diabetes controlled with oral [...] and felt like his heart was racing. Immunologist to bedside. Vitals as above. Attempted valsalva [...] blood sent to lab. monitored inital Assessement: DIE SET UP WORKER to bedside for patient experiencing a HR in the 180's with associated palpitations. Patient states that this has not happened to him before but had a cardiac procedure done today. Primary team bedside ordered adenosine. Patient hooked up to [employer]forM[employer]. First dose of adenosine (6mg) unsuccessful. 2nd [...] 02/18/2025 8:15 AM EDT Office Visit Cardiology, [place] [address] [place] [address] Kaylynn Coley DO [address] [place] [address] 03/26/2025 2:00 PM EDT Office Visit Family Practice, [place] [address] [place] [phone] Karmen Morales CRNP [address] [place] [phone] Health Maintenance Due Date Last Done Comments [...] filedocumented as of this encounter Care Teams Information Systems Professor Relationship Specialty Start Date End Date Karmen Morales CRNP [address] [place] [phone] PCP - General Nurse Practitioner 12/24/24 documented as of this encounter
--- OUTSIDE RECORDS SUMMARY | 2025-02-18 01:55 | External Medical Summary | Summary of Care ---
Author Name Unknown Organization [facility] Address [address] [place] [address] Phone [phone] Care Team Providers Care Plc Controls Engineer Name Role Phone Karmen Morales Primary Care Provider Reason for Visit * Reason Onset Date Comments Scan To Read 12/24/2024 Diabetic eye Encounter Details Date Type Department Care Team (Late st Contact Info) Description 12/24/2024 Telephone [facility] [address] [place] [address] Karmen Morales CRNP [address] [place], [place] [phone] Scan To Read (Diabetic eye) Allergies No known active allergiesdocumented as of this encounter (statuses as of 01/02/2025) Medications Olmesartan Medoxomil-HCTZ 20-12.5 MG Oral TabletIndication [...] by mouth in the morning. 5 Active Hospital, Clinic, or Other Facility [...] as of this encounter (statuses as of 01/02/2025) Active Problems Problem Noted Date Diagnosed Date Type 2 diabetes mellitus wit hout complication, without long-term current use of insulin 04/13/2024 HTN, goal below 130/80 12/25/2018 Obesity, Class II, BMI 35-39.9, isolated (see ac tual BMI) 12/25/2018 Angina pectoris 12/25/2018 documented as of this encounter (statuses as of 01/02/2025) Resolved Problems Problem Noted Date Diagnosed Date Resolved Date Prediabetes 12/15/2018 05/14/2024 Overview: Per Prediabetes protocol #1 documented as of this encounter (statuses as of 01/02/2025) Immunizations Name Administration Dates Next Due TDAP [...] 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 Matti Wisdom MD 12/24/2024 11:02 AM * Telephone Encounter - Destiney Figueroa LPN - 12/24/2024 8:53 AM EST A Diabetic Telemed Eye image was taken and requires your interpretation for Karmen Morales. Please check your inbasket for image. Patient prefers to be seen at [facility] if a follow-up appointment isneeded. documented in this encounter Plan of Treatment Upcoming Encounters Date Type Department Care Team (Late st Contact Info) Description 02/18/2025 8:15 AM EDT Office Visit Cardiology, [place] [address] [place] [place] [address] Kaylynn Coley, DO [address] [place] [address] 03/26/2025 2:00 PM EDT Office Visit Family Practice, [place] [address] [place] [phone] Karmen Morales CRNP [address] [place] [address] Health Maintenance Due Date Last Done Comments [...] filedocumented as of this encounter Care Teams Plc Controls Engineer Relationship Specialty Start Date End Date Karmen Morales CRNP [address] [place] [phone] PCP - General Nurse Practitioner 12/24/24 documented as of this encounter
--- OUTSIDE RECORDS SUMMARY | 2025-02-18 01:55 | External Medical Summary | Summary of Care ---
Author Name Unknown Organization [facility] Address [address] [place] [address] Phone [phone] Care Team Providers Care Executive Chairman Name Role Phone Karmen MoralesNP Primary Care Provider Reason for Visit * Reason Comments Outpatient Testing Encounter Details Date Type Department Care Team ([facility] st Contact Info) Description 12/24/2024 9:30 AM EST Laboratory Laboratory, [place] [address] [place] [address] [facility] [address] [place] [address] Type 2 diabetes mellitus without complication, without long-term current use of insulin (HCC); HTN, goal below 130/80; History of NH (myocardial infarction) Allergies No known active allergiesdocumented as of this encounter (statuses as of 12/24/2024) Medications Olmesartan Medoxomil-HCTZ 20-12.5 MG Oral TabletIndication [...] a day with morning and evening meals. Active Hospital, Clinic, or Other Facility Administered [...] as of this encounter (statuses as of 12/24/2024) Active Problems Problem Noted Date Diagnosed Date Type 2 diabetes mellitus wit hout complication, without long-term current use of insulin 04/13/2024 HTN, goal below 130/80 12/25/2018 Obesity, Class II, BMI 35-39.9, isolated (see ac tual BMI) 12/25/2018 Angina pectoris 12/25/2018 documented as of this encounter (statuses as of 12/24/2024) Resolved Problems Problem Noted Date Diagnosed Date Resolved Date Prediabetes 12/15/2018 05/14/2024 Overview: Per Prediabetes protocol #1 documented as of this encounter (statuses as of 12/24/2024) Immunizations Name Administration Dates Next Due TDAP [...] 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 Not on file Not on file documented as of this encounter Plan of Treatment Upcoming Encounters Date Type Department Care Team (Late st Contact Info) Description 02/18/2025 8:15 AM EDT Office Visit Cardiology, [place] [address] [place] [address] Brijesh Kaylynn Alysha, [address] [place] [address] 03/26/2025 2:00 PM EDT Office Visit Family Practice, [place] [address] [place] [phone] Karmen Morales CRNP [address] [place] [phone] Pending Results Name Type Priority Associated Diagnoses Date /Time HEMOGLOBIN A1C Lab Routine Type 2 diabetes mellitus without complication, without long-term current use of insulin (HCC) 12/24/2024 9:27 AM EST COMPREHENSIVE METABOLIC PANEL Lab Routine HTN, goal below 130/80 12/24/2024 9:27 AM EST LIPID PANEL WITH DIRECT LDL IF TG IS HIGH Lab Routine Type 2 diabetes mellitus without complication, without long-term current use of insulin (HCC) History of NH (myocardial infarction) 12/24/2024 9:27 AM EST ALBUMIN / CREATININE RATIO, URINE Lab Routine Type 2 diabetes mellitus without complication, without long-term current use of insulin (HCC) 12/24/2024 9:29 AM EST Health Maintenance Due Date Last Done Comments HIV Screening 1982 Albumin/Creatinine Ratio 1985 Hepatitis C Screening 1985 Hepatitis B Vaccine (1 of 3 - 19+ 3-dose series) 1986 Pneumococcal Vaccine: 50+ Years (1 of 2 - PCV) 1986 Cologuard 2012 Colonoscopy 2012 Colorectal Cancer Screening 2012 Fecal Occult Blood Test 2012 Sigmoidoscopy 2012 Zoster Vaccines (1 of 2) 2017 COVID-19 Vaccine ( - season) 2024 Influenza Vaccine (FLU shot) (#1) 2024 HbA1c 06/17/2025 12/18/2024, 02/0 08/2021, 12/05/2018 GFR 12/19/2025 12/19/2024, 12/02, 12/18/2024, Additional history exists Depression Screening 12/24/2025 12/24/2024 Diabetic Eye Exam 12/24/2025 12/24/2024 Diabetic Foot Exam 12/24/2025 12/24/2024 DTap/Tdap Vaccines (2 - Td or Tdap) 05/07/2032 05/07/2022 HPV (Gardasil) Vaccine Aged Out No lo nger eligible based on patient's age to complete this topic MENINGOCOCCAL (MENACTRA/MENVEO) Aged Out No longer eligible based on patient's age to complete this topic documented as of this encounter Medical Devices Not on filedocumented as of this encounter Visit Diagnoses Diagnosis Type 2 diabetes mellitus without complication, without long-term current use of insulin (HCC) HTN, goal below 130/80 Unspecified essential hypertension History of NH (myocardial infarction) Old myocardial infarction documented in this encounter Care Teams Executive Chairman Relationship Specialty Start Date End Date Karmen Morales CRNP [address] [place] [id number] PCP - General Nurse Practitioner 12/24/24 documented as of this encounter
--- OUTSIDE RECORDS SUMMARY | 2025-02-18 01:55 | External Medical Summary | Summary of Care ---
Author Name Unknown Organization [facility] Address [address] [place] [address] Phone [phone] Care Team Providers Care Work Measurement Engineer Name Role Phone Karmen Morales Primary Care Provider Reason for Referral * Evaluate & Treat - Unlimited Visits (Within 3 days (urgent)) - Authorized Specialty Diagnoses / Procedures Referred By Contact Referred To Contact Cardiovascular Medicine / Cardiology Diagnoses HTN, goal below 130/80 History of MD (myocardial infarction) Karmen Morales CRNP [address] [place] [address] Phone: tel: fax: Referral ID Status Reason Start Date Expiration Date Visits Requested Visits Authorized [id number] Authorized Specialty Services Required 12/24/2024 999 999 [...] [phone] Karmen Morales CRNP [address] [place] [id number] Hospital discharge follow-up*; Type 2 diabetes mellitus without complication, without long-term current use of insulin (HCC); Special screening for malignant neoplasms, colon; HTN, goal below 130/80; History of MD (myocardial infarction); SVT (supraventricular tachycardia) (HCC) Allergies No known active allergiesdocumented as of this encounter (statuses as of 12/24/2024) Medications Olmesartan Medoxomil-HCTZ 20-12.5 MG Oral TabletIndicatio ns:HTN, goal below 130/80 Take 2 Tablets by mouth in the morning. 180 Tablet 3 04/14/20 24 Active Additional Information Patient not taking.Reported on 12/24/2024 Aspirin 81 MG Oral Tablet Chewable Take 1 Tablet by mouth in the morning. 12/19/19 Active Isosorbide Mononitrate ER 30 MG Oral Tablet Extended Release 24 Hour (Imdur) Take 1 Tablet by mouth in the morning. 12/20/19 Active Metoprolol Tartrate 25 MG Oral Tablet (Lopressor) Take 0.5 Tablets by mouth in the morning and 0.5 Tablets before bedtime. 12/19/19 25 Active Nitroglycerin 0.4 MG Sublingual Tablet Sublingual (Nitrostat) Place 1 Tablet under the tongue every 5 minutes as needed for Pain, Chest. 12/19/19 25 Active Rosuvastatin Calcium 20 MG Oral Tablet (Crestor) Take 1 Tablet by mouth in the morning. 12/19/19 25 Active metFORMIN HCl 500 MG Oral Tablet (Glucophage) Take 1 Tablet by mouth 2 times a day with morning and evening meals. Active Cephalexin 500 MG Oral Capsule (Keflex) Take 1 Capsule by mouth in the morning and 1 Capsule at noon and 1 Capsule in the evening and 1 Capsule before bedtime. 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 Talk to your doctor or funeral greeter (a doctor who specializes in foot care) [...] the area doesnt appear to be healing. [id number] [employer], [address] [place] [address], [place] [address]. All rights reserved. This information is not [...] provider Abdominal pain Vomiting Date Last Reviewed: 10/05/201519996986-4060 [employer]. [address] [place] [address], [place] [address]. All rights reserved. This information is not intended as a substitute for professional medical care. Always follow your healthcare professional's instructions. documented in this encounter Progress Notes * Karmen Morales, PIPPA - 12/24/2024 8:50 AM EST Images from the original note were not included. Subjective Meng Ware is a 59 year old male that presents for NEW PATIENT (Pt would like to establish with PCP. 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 He reported feeling dizzy and experiencing a rapid heart rate, which prompted him to brisket puller andseek medical attention. The patient's heart [...] a preference to [facility] for ongoing management. Review of Systems Constitutional: [...] 130/80 - CARDIOLOGY REFERRAL OP History of MD (myocardial infarction) - CARDIOLOGY REFERRAL OP Recent [...] rhythm during these episodes. SVT (supraventricular tachycardia) ([facility]) - EXTERNAL EKG 8 TO 15 DAYS; [...] in this note was generated using an ambient documentation service. I discussed the use of [...] information about this test. Date Last Reviewed: 05/02/201619997128-1289 [employer]. [address] [place] [address], [place] [address]. All rights reserved. This information is not intended as a substitute for professional medical care. Always follow your healthcare professional's instructions. Urine albumin/creatinine ratio ordered today. Provider aware. documented in this encounter Nursing Notes * Destiney Figueroa LPN - 12/24/2024 8:32 AM EST Chief Complaint Patient presents with NEW PATIENT Pt would like to establish with PCP. documented in this encounter Plan of Treatment Upcoming Encounters Date Type Department Care Team (Late st Contact Info) Description 02/18/2025 8:15 AM EDT Office Visit [facility] [address] [place], [place] [address] [address] Kaylynn Coley, DO [address] [facility] [place] [phone] 03/26/2025 2:00 PM EDT Office Visit [facility], [place] [address] [place] [phone] Karmen Morales CRNP [address] [place] [phone] Pending Results Name Type Priority Associated Diagnoses Date /Time ALBUMIN / CREATININE RATIO, URINE Lab Routine Type 2 diabetes mellitus without complication, without long-term current use of insulin ([facility]) 12/24/2024 9:29 AM EST HEMOGLOBIN A1C Lab Routine Type 2 diabetes mellitus without complication, without long-term current use of insulin ([facility]) 12/24/2024 9:27 AM EST COMPREHENSIVE METABOLIC PANEL Lab Routine HTN, goal below 130/80 12/24/2024 9:27 AM EST LIPID PANEL WITH DIRECT LDL IF TG IS HIGH Lab Routine Type 2 diabetes mellitus without complication, without long-term current use of insulin ([facility]) History of MD (myocardial infarction) 12/24/2024 9:27 AM EST Scheduled Orders Name Type Priority Associated Diagnoses Orde r Schedule ALBUMIN / CREATININE RATIO, URINE Lab Routine Type 2 diabetes mellitus without complication, without long-term current use of insulin ([facility]) Expected: 12/24/2024, Expires: 12/24/2025 COLOGUARD Lab Unrestricted Lab Special screening for malignant neoplasms, colon Ordered: 12/24/2024 EXTERNAL EKG 8 TO 15 DAYS Holter Routine SVT (supraventricular tachycardia) ([facility]) Expected: 12/25/2024 (Approximate), Expires: 12/24/2025 HEMOGLOBIN A1C Lab Routine Type 2 diabetes mellitus without complication, without long-term current use of insulin ([facility]) Expected: 12/24/2024 (Approximate), Expires: 12/24/2025 COMPREHENSIVE METABOLIC PANEL Lab Routine HTN, goal below 130/80 Expected: 12/24/2024 (Approximate), Expires: 12/24/2025 LIPID PANEL WITH DIRECT LDL IF TG IS HIGH Lab Routine Type 2 diabetes mellitus without complication, without long-term current use of insulin ([facility]) History of MD (myocardial infarction) Expected: 12/24/2024, Expires: 12/24/2025 Scheduled Referrals Name Type Priority Associated Diagnoses Orde r Schedule CARDIOLOGY REFERRAL OP Referral Within 3 days (urgent) HTN, goal below 130/80 History of MD (myocardial infarction) Ordered: 12/24/2024 Health Maintenance Due [...] Procedure Name Priority Date/Time Associated Diagnosis Comments TELEMEDICINE DIABETIC EYE Routine 12/24/2024 Type 2 diabetes mellitus without complication, without long-term current use of insulin (HCC) documented in this encounter Results * TELEMEDICINE DIABETIC EYE (12/24/2024) 12/24/2024 Karmen DAS DIGITAL PHOTOGRAPHY Fin al Result documented in this encounter Visit Diagnoses Diagnosis Hospital discharge follow-up- Primary Other follow-up examination Type 2 diabetes mellitus without complication, without long-term current use of insulin (HCC) Special screening for malignant neoplasms, colon HTN, goal below 130/80 Unspecified essential hypertension History of MD (myocardial infarction) Old myocardial infarction SVT (supraventricular tachycardia) (HCC) Other specified cardiac dysrhythmias documented in this encounter Care Teams Work Measurement Engineer Relationship Specialty Start Date End Date Karmen Morales CRNP [address] [place] [phone] PCP - General Nurse Practitioner 12/24/24 documented as of this encounter
--- OUTSIDE RECORDS SUMMARY | 2025-02-18 01:55 | External Medical Summary | Summary of Care ---
Author Name Unknown Organization [facility] Address [address] [place] [address] Phone [phone] Care Team Providers Care Body Trimmer Name Role Phone Karmen Morales Primary Care Provider Reason for Visit * Reason Onset Date Comments Return To Work 01/05/2025 Encounter Details Date Type Department Care Team (Late st Contact Info) Description 01/05/[address] 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 Pt aware that work excuse will be at first floor check out. 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 Please assist, Thanks! * Telephone Encounter - [...] number to call when note is completed: [phone] documented in this encounter Plan of Treatment Upcoming Encounters Date Type Department Care Team (Late st Contact Info) Description 02/18/2025 8:15 AM EDT Office Visit [facility] [address] [place] [address] Kaylynn Coley DO [address] [place] [address] 03/26/2025 2:00 PM EDT [facility] [place] [address] [place] [phone] Karmen Morales CRNP [address] [place] [phone] Health Maintenance Due Date Last Done Comments [...] this encounter Visit Diagnoses Diagnosis History of MD (myocardial infarction)- Primary Old myocardial infarction documented in this encounter Care Teams Body Trimmer Relationship Specialty Start Date End Date Karmen Morales CRNP [address] [place] [phone] PCP - General Nurse Practitioner 12/24/24 documented as of this encounter
--- OUTSIDE RECORDS SUMMARY | 2025-02-18 01:55 | External Medical Summary | Summary of Care ---
Author Name Unknown Organization [facility] Address [address] [place] [address] Phone [phone] Care Team Providers Care Brim Pouncer Name Role Phone Karmen Morales PIPPA Primary Care Provider Encounter Details Date Type Department Care Team (Late st Contact Info) Description [facility] [facility] [address] [place] [address] Keegan Harris MD [address] [place] [address] Allergies No known active allergiesdocumented as of this encounter (statuses as of 12/28/2024) Medications Olmesartan Medoxomil-HCTZ 20-12.5 MG Oral TabletIndication [...] as of this encounter (statuses as of 12/28/2024) Active Problems Problem Noted Date Diagnosed Date Type 2 diabetes mellitus wit hout complication, without long-term current use of insulin 04/13/2024 HTN, goal below 130/80 12/25/2018 Obesity, Class II, BMI 35-39.9, isolated (see ac tual BMI) 12/25/2018 Angina pectoris 12/25/2018 documented as of this encounter (statuses as of 12/28/2024) Resolved Problems Problem Noted Date Diagnosed Date Resolved Date Prediabetes 12/15/2018 05/14/2024 Overview: Per Prediabetes protocol #1 documented as of this encounter (statuses as of 12/28/2024) Immunizations Name Administration Dates Next Due TDAP [...] 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 Please call pt to advise that his A1c is 8.8%. he should increase metformin to 2 tabs twice a day. Please pend new RX if needed. documented in this encounter Plan of Treatment Upcoming Encounters Date Type Department Care Team (Late st Contact Info) Description 02/18/2025 8:15 AM EDT Office Visit Cardiology, [place] [address] [place] [address] [facility] [phone] 03/26/2025 2:00 PM EDT Office Visit Family Practice, [place] [address] [place] [phone] Karmen Morales CRNP [address] [facility] [place] [address] Health Maintenance Due Date Last Done Comments [...] filedocumented as of this encounter Care Teams Brim Pouncer Relationship Specialty Start Date End Date Karmen Morales CRNP [address] [place] [phone] PCP - General Nurse Practitioner 12/24/24 documented as of this encounter
--- OUTSIDE RECORDS SUMMARY | 2025-02-18 01:55 | External Medical Summary | Summary of Care ---
Author Name Unknown Organization [facility] Address [address] [place] [address] Phone [phone] Care Team Providers Care Supervisor Poultry Farm Name Role Phone Karmen Kang Primary Care Provider Reason for Visit * Reason Onset Date Comments Medication Refill 01/07/2025 Encounter Details Date Type Department Care Team (Late st Contact Info) Description 01/07/2025 Refill [facility] [address] [place] [address] Karmen Kang CRNP [address] [place], [place] [phone] Allergies No known active allergiesdocumented as of this encounter (statuses as of 01/07/2025) Medications Olmesartan Medoxomil-HCTZ 20-12.5 MG Oral TabletIndicatio [...] the morning. 90 Tablet 3 5 Active Aspirin 81 MG Oral Tablet [...] encounter Miscellaneous Notes * Telephone Encounter - aKrmen Kang CRNP - 01/07/2025 1:35 PM EST Signed Prescriptions: Disp Refills Aspirin 81 MG Oral Tablet Chewable 90 Tab*3 Sig: Take 1 Tablet by mouth in the morning. Authorizing Provider: KARMEN KANG * Telephone Encounter - Morro Still, solar system designer - 01/07/2025 1:05 PM EST Medication(s) is/are listed as "Historical". Pt confirmed the current dosage, directions, and qty that they are normally prescribed, as reflected in the pending order below. This is also indicated from encounter on 12/19/24. Confirmed patient has been seen within the last year.. Please review and approve if appropriate. Pending Prescriptions: Disp Refills Aspirin 81 MG Oral Tablet Chewable 90 Tab*3 Sig: Take 1 Tablet by mouth in the morning. Last Visit: 12/24/2024 (in office), Visit date [...] Description 01/13/2025 9:30 AM EST Imaging Radiology [address] [place] [phone] 02/18/2025 8:15 AM EDT Office Visit Cardiology, [place] [address] [place] [address] Kaylynn Coley [address] [place] [address] 03/26/2025 2:00 PM EDT Office Visit Family Practice, [place] [address] [place] [phone] Karmen Kang CRNP [address] [place] [phone] Health Maintenance Due Date Last Done Comments [...] filedocumented as of this encounter Care Teams Supervisor Poultry Farm Relationship Specialty Start Date End Date Karmen Kang CRNP [address] [place] [phone] PCP - General Nurse Practitioner 12/24/24 documented as of this encounter
--- OUTSIDE RECORDS SUMMARY | 2025-02-18 01:55 | External Medical Summary | Summary of Care ---
Author Name Unknown Organization [facility] Address [address] [place] [address] Phone [phone] Care Team Providers Care Nephrologist Name Role Phone Karmen Morales Primary Care Provider Reason for Referral * Evaluate & Treat - Unlimited Visits (Within 3 days (urgent)) - Authorized Specialty Diagnoses / Procedures Referred By Contact Referred To Contact Cardiovascular Medicine / Cardiology Diagnoses HTN, goal below 130/80 History of [place] (myocardial infarction) Karmen Morales CRNP [address] [address] Phone: tel: fax: Referral ID Status Reason Start Date Expiration Date Visits Requested Visits Authorized [id number] Authorized Specialty Services Required 12/24/2024 999 999 [...] [id number] Karmen Morales CRNP [address] [address] Hospital discharge follow-up*; Type 2 diabetes mellitus without complication, without long-term current use of insulin (HCC); Special screening for malignant neoplasms, colon; HTN, goal below 130/80; History of [place] (myocardial infarction); SVT (supraventricular tachycardia) (HCC) Allergies [...] 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 Talk to your doctor or dba developer (a doctor who specializes in foot care) [...] the area doesnt appear to be healing. [phone] [employer], [address] [place] [address], [place] [address]. All rights reserved. This information is not [...] provider Abdominal pain Vomiting Date Last Reviewed: 10/05/201519992034-2198 [employer]. [address] [place] [address], [place] [address]. All rights reserved. 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 He reported feeling dizzy and experiencing a rapid heart rate, which prompted him to tobacco sample puller andseek medical attention. The patient's heart [...] a preference [facility] facilities [facility] for ongoing management. Review of Systems Constitutional: [...] 130/80 - CARDIOLOGY REFERRAL OP History of [place] (myocardial infarction) - CARDIOLOGY REFERRAL OP Recent [...] rhythm during these episodes. SVT (supraventricular tachycardia) ([facility]) - EXTERNAL EKG 8 TO 15 [...] information about this test. Date Last Reviewed: 05/02/201619995983-2364 [employer]. [address] [place] [address], [place] [address]. All rights reserved. This information is not [...] 02/18/2025 8:15 AM EDT Office Visit [facility] [address] [place], [place] [address] [address] Kaylynn Coley, DO [address] [facility] [place] [address] 03/26/2025 2:00 PM EDT Office Visit [facility] [place] [address] [phone] Karmen Morales CRNP [address] [id number] Pending Results Name Type Priority Associated Diagnoses Date /Time ALBUMIN / CREATININE RATIO, URINE Lab Routine Type 2 diabetes mellitus without complication, without long-term current use of insulin ([facility]) 12/24/2024 9:29 AM EST HEMOGLOBIN A1C Lab Routine Type 2 diabetes mellitus without complication, without long-term current use of insulin ([facility]) 12/24/2024 9:27 AM EST COMPREHENSIVE METABOLIC PANEL Lab Routine HTN, goal below 130/80 12/24/2024 9:27 AM EST LIPID PANEL WITH DIRECT LDL IF TG IS HIGH Lab Routine Type 2 diabetes mellitus without complication, without long-term current use of insulin ([facility]) History of [place] (myocardial infarction) 12/24/2024 9:27 AM EST Scheduled Orders Name Type Priority Associated Diagnoses Orde r Schedule ALBUMIN / CREATININE RATIO, URINE Lab Routine Type 2 diabetes mellitus without complication, without long-term current use of insulin ([facility]) Expected: 12/24/2024, Expires: 12/24/2025 [facility] Lab Unrestricted Lab Special screening for malignant neoplasms, colon Ordered: 12/24/2024 EXTERNAL EKG 8 TO 15 DAYS Holter Routine SVT (supraventricular tachycardia) ([facility]) Expected: 12/25/2024 (Approximate), Expires: 12/24/2025 HEMOGLOBIN A1C Lab Routine Type 2 diabetes mellitus without complication, without long-term current use of insulin ([facility]) Expected: 12/24/2024 (Approximate), Expires: 12/24/2025 COMPREHENSIVE METABOLIC PANEL Lab Routine HTN, goal below 130/80 Expected: 12/24/2024 (Approximate), Expires: 12/24/2025 LIPID PANEL WITH DIRECT LDL IF TG IS HIGH Lab Routine Type 2 diabetes mellitus without complication, without long-term current use of insulin ([facility]) History of RI (myocardial infarction) Expected: 12/24/2024, Expires: 12/24/2025 Scheduled Referrals Name Type Priority Associated Diagnoses Orde r Schedule CARDIOLOGY REFERRAL OP Referral Within 3 days (urgent) HTN, goal below 130/80 History of [place] (myocardial infarction) Ordered: 12/24/2024 Health Maintenance Due [...] below 130/80 Unspecified essential hypertension History of [place] (myocardial infarction) Old myocardial infarction SVT (supraventricular tachycardia) (HCC) Other specified cardiac dysrhythmias documented in this encounter Care Teams Nephrologist Relationship Specialty Start Date End Date Karmen Morales CRNP [address] [phone] PCP - General Nurse Practitioner 12/24/24 documented as of this encounter
--- OUTSIDE RECORDS SUMMARY | 2025-02-18 01:55 | External Medical Summary | Summary of Care ---
Author Name Unknown Organization [facility] Address [address] [place] [address] Phone [phone] Care Team Providers Care Superintendent Menagerie Name Role Phone Karmen MoralesNP Primary Care Provider Reason for Visit * Reason Onset Date Comments Appointment 01/11/2025 Encounter Details Date Type Department Care Team (Late st Contact Info) Description 01/11/[address] [place] [address] Rabia Powers, RT (M) Appointment Allergies No known active allergiesdocumented as of this encounter (statuses as of 01/12/2025) Medications Olmesartan Medoxomil-HCTZ 20-12.5 MG Oral TabletIndication [...] as of this encounter (statuses as of 01/12/2025) Active Problems Problem Noted Date Diagnosed Date Type 2 diabetes mellitus wit hout complication, without long-term current use of insulin 04/13/2024 HTN, goal below 130/80 12/25/2018 Obesity, Class II, BMI 35-39.9, isolated (see ac tual BMI) 12/25/2018 Angina pectoris 12/25/2018 documented as of this encounter (statuses as of 01/12/2025) Resolved Problems Problem Noted Date Diagnosed Date Resolved Date Prediabetes 12/15/2018 05/14/2024 Overview: Per Prediabetes protocol #1 documented as of this encounter (statuses as of 01/12/2025) Immunizations Name Administration Dates Next Due TDAP [...] 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 No Have you ever worked with metal or have you ever gotten metal in your eyes? Yes Needs Pre-MRI orbitx-rays Have you had a colonoscopy in the last 30 days? No On dialysis? No Do you have any dermals or body piercing's? No or ? Do you wear an insulin pump or diabetic monitor?No RT Gayatri (Charles) documented in this encounter Plan of Treatment Upcoming Encounters Date Type Department Care Team (Late st Contact Info) Description 01/13/2025 9:30 AM EST Imaging Radiology [address] [place] [phone] 02/18/2025 8:15 AM EDT Office Visit Cardiology, [place] [address] [place] [address] Kaylynn Coley DO [address] [place] [address] 03/26/2025 2:00 PM EDT Office Visit Family Practice, [place] [address] [phone] Karmen Morales CRNP [address] [address] Health Maintenance Due Date Last Done Comments [...] filedocumented as of this encounter Care Teams Superintendent Menagerie Relationship Specialty Start Date End Date Karmen Morales CRNP [address] [id number] PCP - General Nurse Practitioner 12/24/24 documented as of this encounter
--- OUTSIDE RECORDS SUMMARY | 2025-02-18 01:56 | External Medical Summary | Summary of Care ---
Author Name Unknown Organization [facility] Address [address] [place] [address] Phone [phone] Care Team Providers Care Clean Out Driller Name Role Phone Karmen Morales Primary Care Provider Reason for Referral * Evaluate & Treat - Unlimited Visits (Within 3 days (urgent)) - Authorized Specialty Diagnoses / Procedures Referred By Contact Referred To Contact Cardiovascular Medicine / Cardiology Diagnoses HTN, goal below 130/80 History of [place] (myocardial infarction) Karmen Morales CRNP [address] [address] Phone: tel: fax: Referral ID Status Reason Start Date Expiration Date Visits Requested Visits Authorized [id number] Authorized Specialty Services Required 12/24/2024 999 999 [...] [id number] Karmen Morales CRNP [address] [address] Hospital discharge follow-up*; Type 2 diabetes mellitus without complication, without long-term current use of insulin (HCC); Special screening for malignant neoplasms, colon; HTN, goal below 130/80; History of [place] (myocardial infarction); SVT (supraventricular tachycardia) (HCC) Allergies [...] Industry 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 Talk to your doctor or housing and residence life director (a doctor who specializes in foot care) [...] the area doesnt appear to be healing. [phone] [employer], [address] [place] [address], [place] [address]. All rights reserved. This information is not [...] provider Abdominal pain Vomiting Date Last Reviewed: 10/05/201519997470-9019 [employer]. [address] [place] [address], [place] [address]. All rights reserved. 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 He reported feeling dizzy and experiencing a rapid heart rate, which prompted him to pulley mortiser operator andseek medical attention. The patient's heart rate [...] a preference to transfer his care to [facility] crop or grain farmer for ongoing management. Review of Systems Constitutional: [...] 130/80 - CARDIOLOGY REFERRAL OP History of [place] (myocardial infarction) - CARDIOLOGY REFERRAL OP Recent [...] rhythm during these episodes. SVT (supraventricular tachycardia) ([facility]) - EXTERNAL EKG 8 TO 15 [...] information about this test. Date Last Reviewed: 05/02/201619990008-2163 [employer]. [address] [place] [address], [place] [address]. All rights reserved. This information is not [...] 02/18/2025 8:15 AM EDT Office Visit [facility] [address] [place], [place] [address] [address] Kaylynn Coley, DO [address] [facility] [place] [address] Scheduled Orders Name Type Priority Associated Diagnoses Orde r Schedule ALBUMIN / CREATININE RATIO, URINE Lab Routine Type 2 diabetes mellitus without complication, without long-term current use of insulin (HCC) Expected: 12/24/2024, Expires: 12/24/2025 [facility] Lab Unrestricted Lab Special screening for malignant neoplasms, colon Ordered: 12/24/2024 EXTERNAL EKG 8 TO 15 DAYS Holter Routine SVT (supraventricular tachycardia) (HCC) Expected: 12/25/2024 (Approximate), Expires: 12/24/2025 HEMOGLOBIN A1C Lab Routine Type 2 diabetes mellitus without complication, without long-term current use of insulin (HCC) Expected: 12/24/2024 (Approximate), Expires: 12/24/2025 COMPREHENSIVE METABOLIC PANEL Lab Routine HTN, goal below 130/80 Expected: 12/24/2024 (Approximate), Expires: 12/24/2025 LIPID PANEL WITH DIRECT LDL IF TG IS HIGH Lab Routine Type 2 diabetes mellitus without complication, without long-term current use of insulin (HCC) History of [place] (myocardial infarction) Expected: 12/24/2024, Expires: 12/24/2025 Scheduled Referrals Name Type Priority Associated Diagnoses Orde r Schedule CARDIOLOGY REFERRAL OP Referral Within 3 days (urgent) HTN, goal below 130/80 History of [place] (myocardial infarction) Ordered: 12/24/2024 Health Maintenance Due [...] below 130/80 Unspecified essential hypertension History of [place] (myocardial infarction) Old myocardial infarction SVT (supraventricular tachycardia) (HCC) Other specified cardiac dysrhythmias documented in this encounter Care Teams Clean Out Driller Relationship Specialty Start Date End Date Karmen Morales CRNP [address] [id number] PCP - General Nurse Practitioner 12/24/24 documented as of this encounter
--- OUTSIDE RECORDS SUMMARY | 2025-02-18 01:56 | External Medical Summary ---
Author Name Unknown Address Unknown Organization K01:[facility] [address] [facility] [address] Laboratory Report Ordering Provider Test Date Status PEARL LITTLE 12/24/2024 09:27:51 Final Observation Date Value Abnormality Reference (Units ) Status HbA1C 12/24/2024 09:27:51 8.8 Above high normal 4. 0-5.6 (%) Final The use of HbA1c to monitor glycemic status is based on normal hemoglobin and HbA composition. This test should not be used in patients with abnormal hemoglobin that affects the half life of the red blood cell or the in vivo glycation rates. Glucose, estimated average 12/24/2024 09:27:51 206 Above high normal <126 (mg/dL) Chadd escamilla Performing Location [facility] [address] [facility] [address]
--- OUTSIDE RECORDS SUMMARY | 2025-02-18 01:56 | External Medical Summary | Summary of Care ---
Author Name Unknown Organization [facility] Address [address] [place] [address] Phone [phone] Care Team Providers Care Loading Machine Operator Helper Name Role Phone Karmen Morales Primary Care Provider Reason for Referral * Evaluate & Treat - Unlimited Visits (Within 3 days (urgent)) - Authorized Specialty Diagnoses / Procedures Referred By Contact Referred To Contact Cardiovascular Medicine / Cardiology Diagnoses HTN, goal below 130/[address] (myocardial infarction) Karmen Morales CRNP [address] [address] Phone: tel: fax: Referral ID Status Reason Start Date Expiration Date Visits Requested Visits Authorized [id number] Authorized Specialty Services Required 12/24/2024 999 999 [...] [id number] Karmen Morales CRNP [address] [address] Hospital discharge follow-up*; Type 2 diabetes mellitus without complication, without long-term current use of insulin (HCC); Special screening for malignant neoplasms, colon; HTN, goal below 130/80; History of CT (myocardial infarction); SVT (supraventricular tachycardia) (HCC) Allergies [...] 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 Talk to your doctor or screen printer helper (a doctor who specializes in foot care) [...] the area doesnt appear to be healing. [phone] [employer], [address] [place] [address], [place] [address]. All rights reserved. This information is not [...] provider Abdominal pain Vomiting Date Last Reviewed: 10/05/201519996450-0470 [employer]. [address] [place] [address], [place] [address]. All rights reserved. 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 He reported feeling dizzy and experiencing a rapid heart rate, which prompted him to sample puller andseek medical attention. The patient's [...] a preference to transfer his care to [facility] supervisor records change for ongoing management. Review of Systems Constitutional: [...] 130/80 - CARDIOLOGY REFERRAL OP History of CT (myocardial infarction) - CARDIOLOGY REFERRAL OP Recent [...] rhythm during these episodes. SVT (supraventricular tachycardia) ([facility]) - EXTERNAL EKG 8 TO 15 DAYS; [...] information about this test. Date Last Reviewed: 05/02/201619991018-7279 [employer]. [address] [place] [address], [place] [address]. All rights reserved. This information is not [...] 02/18/2025 8:15 AM EDT Office Visit [facility] [address] [place], [place] [address] [address] Kaylynn Coley, DO [address] [facility] [place] [address] 03/26/2025 2:00 PM EDT Office Visit [facility] [place] [address] [phone] Karmen Morales CRNP [address] [address] Pending Results Name Type Priority Associated Diagnoses Date /Time ALBUMIN / CREATININE RATIO, URINE Lab Routine Type 2 diabetes mellitus without complication, without long-term current use of insulin ([facility]) 12/24/2024 9:29 AM EST HEMOGLOBIN A1C Lab Routine Type 2 diabetes mellitus without complication, without long-term current use of insulin ([facility]) 12/24/2024 9:27 AM EST COMPREHENSIVE METABOLIC PANEL Lab Routine HTN, goal below 130/80 12/24/2024 9:27 AM EST LIPID PANEL WITH DIRECT LDL IF TG IS HIGH Lab Routine Type 2 diabetes mellitus without complication, without long-term current use of insulin ([facility]) History of CT (myocardial infarction) 12/24/2024 9:27 AM EST Scheduled Orders Name Type Priority Associated Diagnoses Orde r Schedule ALBUMIN / CREATININE RATIO, URINE Lab Routine Type 2 diabetes mellitus without complication, without long-term current use of insulin ([facility]) Expected: 12/24/2024, Expires: 12/24/2025 [facility] Lab Unrestricted Lab Special screening for malignant neoplasms, colon Ordered: 12/24/2024 EXTERNAL EKG 8 TO 15 DAYS Holter Routine SVT (supraventricular tachycardia) ([facility]) Expected: 12/25/2024 (Approximate), Expires: 12/24/2025 HEMOGLOBIN A1C Lab Routine Type 2 diabetes mellitus without complication, without long-term current use of insulin ([facility]) Expected: 12/24/2024 (Approximate), Expires: 12/24/2025 COMPREHENSIVE METABOLIC PANEL Lab Routine HTN, goal below 130/80 Expected: 12/24/2024 (Approximate), Expires: 12/24/2025 LIPID PANEL WITH DIRECT LDL IF TG IS HIGH Lab Routine Type 2 diabetes mellitus without complication, without long-term current use of insulin ([facility]) History of CT (myocardial infarction) Expected: 12/24/2024, Expires: 12/24/2025 Scheduled Referrals Name Type Priority Associated Diagnoses Orde r Schedule CARDIOLOGY REFERRAL OP Referral Within 3 days (urgent) HTN, goal below 130/[address] (myocardial infarction) Ordered: 12/24/2024 Health Maintenance Due [...] below 130/80 Unspecified essential hypertension History of CT (myocardial infarction) Old myocardial infarction SVT (supraventricular tachycardia) (HCC) Other specified cardiac dysrhythmias documented in this encounter Care Teams Loading Machine Operator Helper Relationship Specialty Start Date End Date Karmen Morales CRNP [address] [phone] PCP - General Nurse Practitioner 12/24/24 documented as of this encounter
--- OUTSIDE RECORDS SUMMARY | 2025-02-18 01:56 | External Medical Summary ---
Author Name Unknown Address Unknown Organization K01:[facility] [address] [facility] [place] [address] Laboratory Report Ordering Provider Test Date Status PEARL LITTLE 12/24/2024 09:29:34 Final Normal: <30 mg/g creatinine< br/>High: 30-300 mg/g creatinine
Very High: >300 mg/g creatinine
Nephrotic: >2200 mg/g creatinine Observation Date Value Abnormality Reference (Units ) Status Albumin, Urine 12/24/2024 09:29:34 1.00 (mg/dL) Final Creatinine, Urine 12/24/2024 09:29:34 154 (mg/dL) Final Albumin/Creatinine [Mass Ratio] in Urine 12/24/2024 09:29:34 6 <30 (mg/g Creat) Final Performing Location [facility] [address] [facility] [address]
--- OUTSIDE RECORDS SUMMARY | 2025-02-18 01:56 | External Medical Summary | Summary of Care ---
Author Name Unknown Organization [facility] Address [address] [place] [address] Phone [phone] Care Team Providers Care Physical Instructor Name Role Phone Unavailable Primary Care Provider Unavailabl e Reason for Visit * Reason Comments Nurse Documentation Open fracture finger , DOI 11/24/24, 4 sutures removed from site, one steri strip applied, yellow slough noted on wound at the nail, completed abx 12/01/24, denies fever, chills, Encounter Details Date Type Department Care Team (Late st Contact Info) Description 12/04/2024 9:30 AM EST Nurse Only Orthopaedics, [facility]ank [address] [place] [address] Blank, Nurse Orthopaedics [address] [place] [address] Nurse Documentation (Open fracture finger,... Allergies No known active allergiesdocumented as of this encounter (statuses as of 12/04/2024) Medications Olmesartan Medoxomil-HCTZ 20-12.5 MG Oral TabletIndicatio ns:HTN, goal below 130/80 Take 2 Tablets by mouth in the morning. 180 Tablet 3 04/14/2024 Active Cephalexin 500 MG Oral Capsule (Keflex) Take 1 Capsule by mouth in the morning and 1 Capsule at noon and 1 Capsule in the evening and 1 Capsule before bedtime. 28 Capsule 11/26/2024 9:52 AM EST 11/24/2024 Active Hospital, Clinic, or Other Facility Administered [...] as of this encounter (statuses as of 12/04/2024) Active Problems Problem Noted Date Diagnosed Date Type 2 diabetes mellitus wit hout complication, without long-term current use of insulin 04/13/2024 HTN, goal below 130/80 12/25/2018 Obesity, Class II, BMI 35-39.9, isolated (see ac tual BMI) 12/25/2018 Angina pectoris 12/25/2018 documented as of this encounter (statuses as of 12/04/2024) Resolved Problems Problem Noted Date Diagnosed Date Resolved Date Prediabetes 12/15/2018 05/14/2024 Overview: Per Prediabetes protocol #1 documented as of this encounter (statuses as of 12/04/2024) Immunizations Name Administration Dates Next Due TDAP [...] on file 03/02 PHQ-2 Answer Date Recorded PHQ-2 Score 0 12/05/2018 Sex and Gender Information Value Date Recorded Sex Assigned at Not on file Legal Sex Male 6:02 AM EST Gender Identity Not on file Sexual Orientation Not on file 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 Continue daily soaks and dressing changes. Monitor for S&S of infection ie: fever, chills, redness, drainage,. Call office if any concerns and maintain next appt. Verbalized understanding. * Ayala Owen LPN - 12/04/2024 9:01 AM EST Chief Complaint Patient presents with Nurse Documentation Open fracture finger, DOI 11/24/24, 4 sutures removed from site, one steri strip applied, yellow slough noted on wound at the nail, completed abx 12/01/24, denies fever, chills, documented in this encounter Plan of Treatment Upcoming Encounters Date Type Department Care Team (Late st Contact Info) Description 12/22/2024 10:30 AM EST Office Visit Orthopaedics, [place] [address] [place] [address] Rivera Kerns PA-C [address] [place] [address] Health Maintenance Due Date Last Done Comments HIV Screening 1982 Albumin/Creatinine Ratio 1985 Diabetic Eye Exam 1985 Diabetic Foot Exam 1985 Hepatitis C Screening 1985 Hepatitis B Vaccine (1 of 3 - 19+ 3-dose series) 1986 Pneumococcal Vaccine: 50+ Years (1 of 2 - PCV) 1986 Cologuard 2012 Colonoscopy 2012 Colorectal Cancer Screening 2012 Fecal Occult Blood Test 2012 Sigmoidoscopy 2012 Zoster Vaccines (1 of 2) 2017 Depression Screening 12/05/2019 12/05/2018 HbA1c 07/10/2021 01/10/2021, 12/05/2018 COVID-19 Vaccine (1 - season) 2024 Influenza Vaccine (FLU shot) (#1) 2024 GFR 04/10/2025 04/10/2024, 0507/2024, 01/10/2021, Additional history exists DTap/Tdap Vaccines (2 - [...]
--- OUTSIDE RECORDS SUMMARY | 2025-02-18 01:56 | External Medical Summary ---
Author Name Unknown Address Unknown Organization K01:[facility] [place] - [address] [facility] [address] Laboratory Report Ordering Provider Test Date Status PEARL LITTLE 12/24/2024 09:27:51 Final Observation Date Value Abnormality Reference (Units ) Status Triglyceride 12/24/2024 09:27:51 143 <=174 ( mg/dL) Final Triglyceride Reference Range s (mg/dL):
<150 Acceptable
150-174 Borderline high
175-499 High
>=500 Very high Cholesterol 12/24/2024 09:27:51 116 <200 (mg /dL) Final Total Cholesterol Reference Ranges (mg/dL):
<200 Desirable
200-239 Borderline high
>=240 High HDL 12/24/2024 09:27:51 37 Below low normal >39 (mg/dL) Final HDL Cholesterol Reference Ra nges (mg/dL):
>=60 High (Desirable)
<50 Low (Undesirable) For Females
<40 Low (Undesirable) For Males NON-HDL CHOLESTEROL 12/24/2024 09:27:51 79 <=159 (mg/dL) Final Non-HDL Cholesterol Referenc e Range (mg/dL):
<100 Target level for high risk ASCVD patient
<130 Optimal for general population
130-159 Near optimal for general population
160-189 Borderline High
190-219 High
>=220 Very High LDL, (calculated) 12/24/2024 09:27:51 50 <= 129 (mg/dL) Final LDL Cholesterol Reference Ra nges (mg/dL):
<70 Target level for high risk ASCVD patient
<100 Optimal for general population
100-129 Near optimal for general population
130-159 Borderline high
160-189 High
>=190 Very high Performing Location [facility] [place] - [address] [place] [address]
--- OUTSIDE RECORDS SUMMARY | 2025-02-18 01:56 | External Medical Summary | Summary of Care ---
Author Name Unknown Organization [facility] Address [address] [place] [address] Phone [phone] Care Team Providers Care Brick Pitcher Name Role Phone Unavailable Primary Care Provider Unavailabl e Reason for Visit * Reason Comments NEW PATIENT L ring finger open f nabor, DOI 11/24/24, presented to ED, sutures placed, xray in Epic, * Evaluate & Treat - Unlimited Visits (Within 10 days (routine)) - Authorized Specialty Diagnoses / Procedures Referred By Jose t Referred To Contact Orthopaedic Surgery / Orthopedics Diagnoses Open nondisplaced fracture of distal phalanx of left index finger, initial encounter Deepak Jones PA-C [address] [place] [address] Phone: tel: fax: Referral ID Status Reason Start Date Expiration Date Visits Requested Visits Authorized [id number] Authorized Specialty Services Required 4 [phone] Encounter Details Date Type Department Care Team (Late st Contact Info) Description 12/01/2024 9:30 AM EST Office Visit Orthopaedics, [place] [address] [place] [address] Tim Bland, DO [address] [place] [address] Open displaced fracture of distal phalanx of left ring finger, initial encounter* Allergies No known active allergiesdocumented as of this encounter (statuses as of 12/01/2024) Medications Olmesartan Medoxomil-HCTZ 20-12.5 MG Oral TabletIndicatio ns:HTN, goal below 130/80 Take 2 Tablets by mouth in the morning. 180 Tablet 3 04/14/2024 Active Cephalexin 500 MG Oral Capsule Take 1 Capsule by mouth in the morning and 1 Capsule at noon and 1 Capsule in the evening and 1 Capsule before bedtime. Do all this for 7 days. 28 Capsule 11/24/2024 Active Cephalexin 500 MG Oral Capsule (Keflex) [...] as of this encounter (statuses as of 12/01/2024) Active Problems Problem Noted Date Diagnosed Date Type 2 diabetes mellitus wit hout complication, without long-term current use of insulin 04/13/2024 HTN, goal below 130/80 12/25/2018 Obesity, Class II, BMI 35-39.9, isolated (see ac tual BMI) 12/25/2018 Angina pectoris 12/25/2018 documented as of this encounter (statuses as of 12/01/2024) Resolved Problems Problem Noted Date Diagnosed Date Resolved Date Prediabetes 12/15/2018 05/14/2024 Overview: Per Prediabetes protocol #1 documented as of this encounter (statuses as of 12/01/2024) Immunizations Name Administration Dates Next Due TDAP [...] 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 Chief Complaint Patient presents with NEW PATIENT L ring finger open fracture, DOI 11/24/24, presented to ED, sutures placed, xray in Epic, HPI: 59-year-old [id number] male presents today for evaluation of left ring finger injury which occurred on 11/24/2024. He reports that he was pushing shopping carts when he caught his left ring finger between the two carts. Following the injury he reported a laceration and pain involving the tip of his finger. He was seen in the emergency department where the wound was cleansed and laceration repaired. X-rays were obtained. He was placed in a splint and dressing as well as given follow-up with Orthopedics. Review of Systems: Constitutional ROS: No fevers, sweats, or chills Cardiovascular ROS: No chest pain Gastrointestinal ROS: No abdominal pain Musculoskeletal/Extremities ROS: Pain Neurologic ROS: No numbness or tingling Review of patient's allergies indicates: No Known Allergies Current Outpatient Medications Medication Sig Dispense Refill Olmesartan Medoxomil-HCTZ 20-12.5 MG Oral Tablet Take 2 Tablets by mouth in the morning. 180 Tablet3 Cephalexin 500 MG Oral Capsule Take 1 Capsule by mouth in the morning and 1 Capsule at noon and 1 Capsule in the evening and 1 Capsule before bedtime. Do all this for 7 days. 28 Capsule 0 Cephalexin 500 MG Oral Capsule (Keflex) Take 1 Capsule by mouth in the morning and 1 Capsule at noon and 1 Capsule in the evening and 1 Capsule before bedtime. 28 Capsule 0 Current Facility-Administered Medications Medication Dose Route Frequency Provider Last Rate Last Admin albuterol (PROVENTIL HFA) inhaler 4 Puff 4 Puff Inhalation Q4H PRN Akash Stacy PA-C albuterol sulfate (PROVENTIL) (2.5 MG/3ML) 0.083% inhalation solution 2.5 mg 2.5 mg Nebulizer Q4H PRN Akash Stacy PA-C 2.5 mg at 03/16/19 1228 Patient Active Problem List Diagnosis HTN, goal below 130/80 Obesity, Class II, BMI 35-39.9, isolated (see actual BMI) Angina pectoris (HCC) Type 2 diabetes mellitus without complication, without long-term current use of insulin (HCC) Past Medical History: Diagnosis Date HTN (hypertension) Type 2 diabetes mellitus (HCC) 04/10/2024 Past Surgical History: Procedure Laterality Date BRONCHOSCOPY, DX W/ EBUS, 1-2 NODES N/A 12/11/2018 BRONCHOSCOPY, RIGID OR FLEXIBLE, INCLUDING FLUOROSCOPIC GUIDANCE, WHEN PERFORMED; WITH EBUS GUIDED TRANSTRACHEAL AND/OR TRANSBRONCHIAL SAMPLING (EG, ASPIRATION[S]/BIOPSY[IES]), 1 OR 2 MEDIASTINAL AND/OR HILAR LYMPH NODE STATIONS OR STRUCTURES performed by Jarret Verduzco MD at OR [facility] NONE Social History Tobacco Use Smoking status: Former Current packs/day: 2.00 Average packs/day: 2.0 packs/day for 6.0 years (12.0 ttl pk-yrs) Types: Cigarettes Smokeless tobacco: Former Types: Chew Tobacco comments: quit 20 years ago Substance Use Topics Alcohol use: No Comment: Rare Drug use: No Family history: Noncontributory OBJECTIVE: Diagnostic Testing: Previous x-rays of the left hand were obtained demonstrating evidence of soft tissue deformity along the ulnar aspect distal 4th finger with associated subtle ossific density consistent with tiny avulsive bony injury. Vital Signs: Ht 1.753 m (5' 9") | Wt 99.8 kg (220 lb) | BMI 32.49 kg/m | BSA 2.2 m Physical Exam: Well developed/nourished; no acute distress; alert, awake, oriented x3; normal affect Examination of the left ring finger reveals laceration primarily in transverse fashion over the distal ulnar aspect of the finger. Four sutures are in place. No evidence of wound drainage. There is no erythema. Swelling noted. Exquisite tenderness to palpation. There is no tenderness over the DIP joint or PIP joint. He demonstrates limited ability for flexion and extension of the DIP joint secondary to pain. There is active motion noted however. He has intact motion of the PIP joint. Sensation appears intact. Capillary refill brisk. ASSESSMENT: Open displaced fracture of distal phalanx of left ring finger, initial encounter (Primary) Follow-up: Return in about 2 weeks (around 12/15/2024). | Check-out note: Schedule nurse visit on 12/04/2023 for suture removal PLAN: We discussed his injury in the office today. His laceration is healing well however too early for suture removal. I would recommend removal via nurse visit on 12/04/2023. Recommended formal follow-upin 2 weeks for wound check and progressive range of motion. I recommended Epson salt soaks once daily with associated dressing change. Supplies were provided. He will finish his antibiotic medication. He is not to submerge the hand in any water. He is to keep the dressing dry. Recommend no lifting with the left hand. He may begin gentle mobility of the DIP and PIP joint. Splint for comfort. All questions answered. This chart was completed in part utilizing [employer] Speech Voice Recognition Software. Grammatical errors, random word insertions, pronoun errors, and incomplete sentences are an occasional consequence of this system due to software limitations, ambient noise, and hardware issues. Any formal questions or concerns about the content, text, or information contained within the body of this dictation should be directly addressed to the provider for clarification. Tim Bland, 12/01/2024 9:54 AM documented in this encounter Nursing Notes * Ayala Owen LPN - 12/01/2024 9:30 AM EST Chief Complaint Patient presents with NEW PATIENT L ring finger open fracture, DOI 11/24/24, presented to ED, sutures placed, xray in Epic, documented in this encounter Plan of Treatment Upcoming Encounters Date Type Department Care Team (Late st Contact Info) Description 12/04/2024 9:30 AM EST Nurse Only Orthopaedics, [place] [address] [place] [address] Nurse [facility] [address] [place] [address] 12/22/2024 10:30 AM EST Office Visit Orthopaedics, [place] [address] [place] [address] Rivera Kerns PA-C [address] [place] [address] Scheduled Referrals Name Type Priority Associated Diagnoses Orde r Schedule ORTHOPAEDICS REFERRAL OP Referral Within 10 days (routine) Open nondisplaced fracture of distal phalanx of left index finger, initial encounter Ordered: 11/24/2024 Health Maintenance Due Date Last Done Comments [...] 12/05/2018 HbA1c 07/10/2021 01/10/2021, 12/05/2018 COVID-19 Vaccine ( - season) 2024 Influenza Vaccine (FLU shot) (#1) 2024 GFR 04/10/2025 04/10/2024, 05/07/2024, 01/10/2021, Additional history exists DTap/Tdap Vaccines (2 - Td or Tdap) 05/07/2032 05/07/2022 HPV (Gardasil) Vaccine Aged Out No lo nger eligible based on patient's age to complete this topic MENINGOCOCCAL (MENACTRA/MENVEO) Aged Out No longer eligible based on patient's age to complete this topic documented as of this encounter Medical Devices Not on filedocumented as of this encounter Visit Diagnoses Diagnosis Open displaced fracture of distal phalanx of left ring finger, initial encounter- Primary documented in this encounter
--- OUTSIDE RECORDS SUMMARY | 2025-02-18 01:56 | External Medical Summary | Summary of Care ---
Author Name Unknown Organization [facility] Address [address] [place] [address] Phone [phone] Care Team Providers Care Cook Starch Name Role Phone Karmen Morales Primary Care Provider Reason for Referral * Evaluate & Treat - Unlimited Visits (Within 3 days (urgent)) - Authorized Specialty Diagnoses / Procedures Referred By Contact Referred To Contact Cardiovascular Medicine / Cardiology Diagnoses HTN, goal below 130/80 History of [place] (myocardial infarction) Karmen Morales CRNP [address] [place] [address] Phone: tel: fax: Referral ID Status Reason Start Date Expiration Date Visits Requested Visits Authorized [id number] Authorized Specialty Services Required 12/24/[phone] [...] [id number] Karmen Morales CRNP [address] [place] [address] Hospital discharge follow-up*; Type 2 diabetes mellitus without complication, without long-term current use of insulin (HCC); Special screening for malignant neoplasms, colon; HTN, goal below 130/80; History of [place] (myocardial infarction); SVT (supraventricular tachycardia) (HCC) Allergies [...] 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 Talk to your doctor or professional engineer (a doctor who specializes in foot care) [...] the area doesnt appear to be healing. [id number] [employer], [address] [place] [address], [place] [address]. All rights reserved. This information is not [...] provider Abdominal pain Vomiting Date Last Reviewed: 10/05/201519995594-1114 [employer]. [address] [place] [address], [place] [address]. All rights reserved. 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 He reported feeling dizzy and experiencing a rapid heart rate, which prompted him to car clerk pullman andseek medical attention. The patient's heart rate [...] a [facility] drafting supervisor for ongoing management. Review of Systems Constitutional: [...] 130/80 - CARDIOLOGY REFERRAL OP History of [place] (myocardial infarction) - CARDIOLOGY REFERRAL OP Recent [...] rhythm during these episodes. SVT (supraventricular tachycardia) ([facility]) - EXTERNAL EKG 8 TO [...] information about this test. Date Last Reviewed: 05/02/201619990302-6843 [employer]. [address] [place] [address], [place] [address]. All rights reserved. This information is not [...] Team (Late st Contact Info) Description 12/24/2024 9:30 AM EST Laboratory Laboratory, [place] [address] [place] [address] [place] [phone] Dejuan [place] [address] [facility] [place] [address] Type 2 diabetes mellitus without complication, without long-term current use of insulin (HCC); HTN, goal below 130/80; History of [place] (myocardial infarction) 02/18/2025 8:15 AM EDT Office Visit [facility] [place] [address] [facility] [address] [address] Kaylynn Coley, DO [address] [place] [address] 03/26/2025 2:00 PM EDT Office Visit Family [facility], [place] [address] [facility] [place] [id number] Karmen Morales CRNP [address] [facility] [place] [address] Scheduled Orders Name Type Priority Associated Diagnoses [...] current use of insulin (HCC) History of [place] (myocardial infarction) Expected: 12/24/2024, Expires: 12/24/2025 Scheduled Referrals Name Type Priority Associated Diagnoses Orde r Schedule CARDIOLOGY REFERRAL OP Referral Within 3 days (urgent) HTN, goal below 130/80 History of [place] (myocardial infarction) Ordered: 12/24/2024 Health Maintenance Due [...] of 2) 2017 COVID-19 Vaccine ( - 2023- season) 2024 Influenza Vaccine (FLU [...] below 130/80 Unspecified essential hypertension History of [place] (myocardial infarction) Old myocardial infarction SVT (supraventricular tachycardia) (HCC) Other specified cardiac dysrhythmias Type 2 diabetes mellitus without complication, without long-term current use of insulin (HCC) HTN, goal below 130/80 Unspecified essential hypertension History of [place] (myocardial infarction) Old myocardial infarction documented in this encounter Care Teams Cook Starch Relationship Specialty Start Date End Date Karmen Morales CRNP [address] [id number] PCP - General Nurse Practitioner 12/24/24 documented as of this encounter
--- OUTSIDE RECORDS SUMMARY | 2025-02-18 01:56 | External Medical Summary | Summary of Care ---
Author Name Unknown Organization [facility] Address [address] [place] [address] Phone [phone] Care Team Providers Care Biopsychologist Name Role Phone Unavailable Primary Care Provider [...] Electric [facility]ank [address] [place] [address] Blank, Nurse Orthopaedics [address] [place] [address] Nurse Documentation (Open fracture finger,... 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
--- OUTSIDE RECORDS SUMMARY | 2025-02-18 01:56 | External Medical Summary | Summary of Care ---
Author Name Unknown Organization [facility] Address [address] [place] [address] Phone [phone] Care Team Providers Care Track Liner Operator Name Role Phone Unavailable Primary Care Provider [...] Electric [address] [address] [place] [address] Blank, Nurse Orthopaedics [address] [place] [address] Nurse Documentation (Open fracture finger,... 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
--- OUTSIDE RECORDS SUMMARY | 2025-02-18 01:56 | External Medical Summary | Summary of Care ---
Author Name Unknown Organization [facility] Address [address] [place] [address] Phone [phone] Care Team Providers Care Steel Post Installer Name Role Phone Karmen Morales Primary Care Provider Reason for Referral * Evaluate & Treat - Unlimited Visits (Within 3 days (urgent)) - Authorized Specialty Diagnoses / Procedures Referred By Contact Referred To Contact Cardiovascular Medicine / Cardiology Diagnoses HTN, goal below 130/80 History of [place] (myocardial infarction) Karmen Morales CRNP [address] [id number] Phone: tel: fax: Referral ID Status Reason Start Date Expiration Date Visits Requested Visits Authorized [id number] Authorized Specialty Services Required 12/24/2024 999 999 [...] [id number] Karmen Morales CRNP [address] [id number] Hospital discharge follow-up*; Type 2 diabetes mellitus without complication, without long-term current use of insulin (HCC); Special screening for malignant neoplasms, colon; HTN, goal below 130/80; History of [place] (myocardial infarction); SVT (supraventricular tachycardia) (HCC) Allergies [...] 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 Talk to your doctor or ground water technician (a doctor who specializes in foot care) [...] the area doesnt appear to be healing. [id number] [employer], [address] [place] [address], [place] [address]. All rights reserved. This information is not [...] provider Abdominal pain Vomiting Date Last Reviewed: 10/05/201519994383-1225 [employer]. [address] [place] [address], [place] [address]. All rights reserved. 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 He reported feeling dizzy and experiencing a rapid heart rate, which prompted him to hide puller andseek medical attention. The patient's heart [...] [facility] barrel tester and drainer for ongoing management. Review of Systems Constitutional: [...] 130/80 - CARDIOLOGY REFERRAL OP History of [place] (myocardial infarction) - CARDIOLOGY REFERRAL OP Recent [...] rhythm during these episodes. SVT (supraventricular tachycardia) ([facility]) - EXTERNAL EKG 8 TO [...] information about this test. Date Last Reviewed: 05/02/201619990246-8239 [employer]. [address] [place] [address], [place] [address]. All rights reserved. This information is not [...] 02/18/2025 8:15 AM EDT Office Visit [facility] [address] [place], [place] [address] [address] Kaylynn Coley, DO [address] [facility] [place] [address] 03/26/2025 2:00 PM EDT Office Visit [facility] [place] [address] [phone] Karmen Morales CRNP [address] [id number] Pending Results Name Type Priority Associated Diagnoses Date /Time ALBUMIN / CREATININE RATIO, URINE Lab Routine Type 2 diabetes mellitus without complication, without long-term current use of insulin ([facility]) 12/24/2024 9:29 AM EST HEMOGLOBIN A1C Lab Routine Type 2 diabetes mellitus without complication, without long-term current use of insulin ([facility]) 12/24/2024 9:27 AM EST COMPREHENSIVE METABOLIC PANEL Lab Routine HTN, goal below 130/80 12/24/2024 9:27 AM EST LIPID PANEL WITH DIRECT LDL IF TG IS HIGH Lab Routine Type 2 diabetes mellitus without complication, without long-term current use of insulin ([facility]) History of [place] (myocardial infarction) 12/24/2024 9:27 AM EST Scheduled Orders Name Type Priority Associated Diagnoses Orde r Schedule ALBUMIN / CREATININE RATIO, URINE Lab Routine Type 2 diabetes mellitus without complication, without long-term current use of insulin ([facility]) Expected: 12/24/2024, Expires: 12/24/2025 [facility] Unrestricted Lab Special screening for malignant neoplasms, colon Ordered: 12/24/2024 EXTERNAL EKG 8 TO 15 DAYS Holter Routine SVT (supraventricular tachycardia) ([facility]) Expected: 12/25/2024 (Approximate), Expires: 12/24/2025 HEMOGLOBIN A1C Lab Routine Type 2 diabetes mellitus without complication, without long-term current use of insulin ([facility]) Expected: 12/24/2024 (Approximate), Expires: 12/24/2025 COMPREHENSIVE METABOLIC PANEL Lab Routine HTN, goal below 130/80 Expected: 12/24/2024 (Approximate), Expires: 12/24/2025 LIPID PANEL WITH DIRECT LDL IF TG IS HIGH Lab Routine Type 2 diabetes mellitus without complication, without long-term current use of insulin ([facility]) History of [place] (myocardial infarction) Expected: 12/24/2024, Expires: 12/24/2025 Scheduled [...] below 130/80 Unspecified essential hypertension History of [place] (myocardial infarction) Old myocardial infarction SVT (supraventricular tachycardia) (HCC) Other specified cardiac dysrhythmias documented in this encounter Care Teams Steel Post Installer Relationship Specialty Start Date End Date Karmen Morales CRNP [address] [phone] PCP - General Nurse Practitioner 12/24/24 documented as of this encounter
--- OUTSIDE RECORDS SUMMARY | 2025-02-18 01:56 | External Medical Summary | Summary of Care ---
Author Name Unknown Organization [facility] Address [address] [place] [address] Phone [phone] Care Team Providers Care Registered Sales Assistant Name Role Phone Karmen Morales Primary Care Provider Reason for Referral * Evaluate & Treat - Unlimited Visits (Within 3 days (urgent)) - Authorized Specialty Diagnoses / Procedures Referred By Contact Referred To Contact Cardiovascular Medicine / Cardiology Diagnoses HTN, goal below 130/80 History of [place] (myocardial infarction) Karmen Morales CRNP [address] [id number] Phone: tel: fax: Referral ID Status Reason Start Date Expiration Date Visits Requested Visits Authorized [id number] Authorized Specialty Services Required 12/24/2024 999 999 [...] [id number] Karmen Morales CRNP [address] [id number] Hospital discharge follow-up*; Type 2 diabetes mellitus without complication, without long-term current use of insulin (HCC); Special screening for malignant neoplasms, colon; HTN, goal below 130/80; History of [place] (myocardial infarction); SVT (supraventricular tachycardia) (HCC) Allergies [...] 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 Talk to your doctor or dental laboratory technology teacher (a doctor who specializes in foot care) [...] the area doesnt appear to be healing. [id number] [employer], [address] [place] [address], [place] [address]. All rights reserved. This information is not [...] provider Abdominal pain Vomiting Date Last Reviewed: 10/05/201519994753-9178 [employer]. [address] [place] [address], [place] [address]. All rights reserved. 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 He reported feeling dizzy and experiencing a rapid heart rate, which prompted him to cable puller andseek medical attention. The patient's heart [...] a [facility]. Review of Systems Constitutional: [...] 130/80 - CARDIOLOGY REFERRAL OP History of [place] (myocardial infarction) - CARDIOLOGY REFERRAL OP Recent [...] rhythm during these episodes. SVT (supraventricular tachycardia) ([facility]) - EXTERNAL EKG 8 TO 15 [...] information about this test. Date Last Reviewed: 05/02/201619999377-4523 [employer]. [address] [place] [address], [place] [address]. All rights reserved. This information is not [...] 02/18/2025 8:15 AM EDT Office Visit [facility] [address] [place], [place] [address] [address] Kaylynn Coley, DO [address] [facility] [place] [id number] 03/26/2025 2:00 PM EDT Office Visit [facility] [place] [address] [phone] Karmen Morales CRNP [address] [id number] Pending Results Name Type Priority Associated Diagnoses Date /Time ALBUMIN / CREATININE RATIO, URINE Lab Routine Type 2 diabetes mellitus without complication, without long-term current use of insulin ([facility]) 12/24/2024 9:29 AM EST HEMOGLOBIN A1C Lab Routine Type 2 diabetes mellitus without complication, without long-term current use of insulin ([facility]) 12/24/2024 9:27 AM EST COMPREHENSIVE METABOLIC PANEL Lab Routine HTN, goal below 130/80 12/24/2024 9:27 AM EST LIPID PANEL WITH DIRECT LDL IF TG IS HIGH Lab Routine Type 2 diabetes mellitus without complication, without long-term current use of insulin ([facility]) History of [place] (myocardial infarction) 12/24/2024 9:27 AM EST Scheduled Orders Name Type Priority Associated Diagnoses Orde r Schedule ALBUMIN / CREATININE RATIO, URINE Lab Routine Type 2 diabetes mellitus without complication, without long-term current use of insulin ([facility]) Expected: 12/24/2024, Expires: 12/24/2025 [facility] Unrestricted Lab Special screening for malignant neoplasms, colon Ordered: 12/24/2024 EXTERNAL EKG 8 TO 15 DAYS Holter Routine SVT (supraventricular tachycardia) ([facility]) Expected: 12/25/2024 (Approximate), Expires: 12/24/2025 HEMOGLOBIN A1C Lab Routine Type 2 diabetes mellitus without complication, without long-term current use of insulin ([facility]) Expected: 12/24/2024 (Approximate), Expires: 12/24/2025 COMPREHENSIVE METABOLIC PANEL Lab Routine HTN, goal below 130/80 Expected: 12/24/2024 (Approximate), Expires: 12/24/2025 LIPID PANEL WITH DIRECT LDL IF TG IS HIGH Lab Routine Type 2 diabetes mellitus without complication, without long-term current use of insulin ([facility]) History of [place] (myocardial infarction) Expected: 12/24/2024, Expires: 12/24/2025 Scheduled Referrals Name Type Priority Associated Diagnoses Orde r Schedule CARDIOLOGY REFERRAL OP Referral Within 3 days (urgent) HTN, goal below 130/80 History of [place] (myocardial infarction) Ordered: 12/24/2024 Health Maintenance Due [...] below 130/80 Unspecified essential hypertension History of [place] (myocardial infarction) Old myocardial infarction SVT (supraventricular tachycardia) (HCC) Other specified cardiac dysrhythmias documented in this encounter Care Teams Registered Sales Assistant Relationship Specialty Start Date End Date Karmen Morales CRNP [address] [phone] PCP - General Nurse Practitioner 12/24/24 documented as of this encounter
--- OUTSIDE RECORDS SUMMARY | 2025-02-18 01:56 | External Medical Summary | Summary of Care ---
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 Name Role Phone Unavailable Primary Care Provider Unavailabl e Reason for Referral * Evaluate & Treat - Unlimited Visits (Within 10 days (routine)) - Authorized Specialty Diagnoses / Procedures Referred By Jose rashid Referred To Contact Orthopaedic Surgery / Orthopedics Diagnoses Open nondisplaced fracture of distal phalanx of left index finger, initial encounter Deepak Jones PA-C [address] [place] [address] Phone: tel: fax: Referral ID Status Reason Start Date Expiration Date Visits Requested Visits Authorized [id number] Authorized Specialty Services Required 4 [phone] Question Answer Referral Priority Within 10 days (routine) Where should this appointment be scheduled? [facility] What body part is the patient being seen for? Hand What condition is the patient being seen for? Arthritis including related infection Comments Open fracture to distal left index finger with distal tuft avulsion fracture Discharge Order Reason for Visit * Reason Comments Hand Injury * Auth/Cert Specialty Diagnoses / Procedures Referred By Jose rashid Referred To Contact [facility] [address] [place] [address] Phone: tel:[phone] [facility] Emergency Department ([facility]) [address] [place] [address] Phone: tel: fax: Referral ID Status Reason Start Date Expiration Date Visits Re quested Visits Authorized [id number] Encounter Details Date Type Department Care Team (Late st Contact Info) Description 11/24/2024 2:34 PM EST - 11/24/2024 6:12 PM EST Emergency [facility] ([facility]) [address] [address] Ena Alatorre MD [address] [id number] Open nondisplaced fracture of distal phalanx of left index finger, initial encounter (Primary Dx) Discharge Disposition: Home - Self Care Allergies No known active allergiesdocumented as of this encounter (statuses as of 11/25/2024) Medications Olmesartan Medoxomil-HCTZ 20-12.5 MG Oral TabletIndicatio [...] and 1 Capsule before bedtime. 28 Capsule 11/24/2024 Active Hospital, Clinic, or Other Facility [...] as of this encounter (statuses as of 11/25/2024) Active Problems Problem Noted Date Diagnosed Date Type 2 diabetes mellitus wit hout complication, without long-term current use of insulin 04/13/2024 HTN, goal below 130/80 12/25/2018 Obesity, Class II, BMI 35-39.9, isolated (see ac tual BMI) 12/25/2018 Angina pectoris 12/25/2018 documented as of this encounter (statuses as of 11/25/2024) Resolved Problems Problem Noted Date Diagnosed Date Resolved Date Prediabetes 12/15/2018 05/14/2024 Overview: Per Prediabetes protocol #1 documented as of this encounter (statuses as of 11/25/2024) Immunizations Name Administration Dates Next Due TDAP [...] 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 file Not on file Not on file documented as of this encounter Last Filed Vital Signs Vital Sign Reading Time Taken Comments Blood Pressure 169/109 11/24/2024 3:50 PM EST Pulse 78 11/24/2024 3:50 PM EST Temperature 36 C (96.8 F) 11/24/2024 2:35 PM EST Respiratory Rate 20 11/24/2024 3:50 PM EST Oxygen Saturation 97% 11/24/2024 2:35 PM EST Inhaled Oxygen Concentration - - Weight 99.8 kg (220 lb) 11/24/2024 2:35 PM EST Height 175.3 cm (5' 9") 11/24/2024 2:35 PM EST Body Mass Index 32.49 11/24/2024 2:35 PM EST documented in this encounter Discharge Instructions * Discharge Instructions* Deepak Jones PA-C - 11/24/2024 5:12 PM EST You were seen and treated on 11/24/2024 for a finger injury. X-rays are showing evidence of a fracture to the distal aspect of the finger that is very small called an avulsion fracture. Laceration was cleansed in the ER and sutured in the ER. A dressing was applied. Keep the dressing on for the next 24 hours. Gently remove the dressing tomorrow and gently cleanse around the area with soap and water and a washcloth. Monitor for signs or symptoms of infection which include redness developing around the skin, discharge, swelling, rapidly spreading redness or swelling, fever, chills, starting get sick or ill, if he was develops these symptoms return back to ER fo r re-evaluation. Please use ibuprofen and Tylenol to help with your discomfort. Make sure you follow the instructions. You can alternate between Tylenol and ibuprofen every 3 hours. So 1st take 650 mg Tylenol, 3 hours later take 400 mg ibuprofen, 3 hours later take Tylenol, and so on. Make sure you eat something when you take ibuprofen. Recommend keep the area clean and dry at least for the next 2-3 days. Do not put her hands in any dirty water or contamination until the wound heals. Return back to ER if he noticed blood through the dressing that was applied in the ER. Do not put her hands in any dirty water or dirt until the wound heals in his sutures are removed. I placed an orthopedic referral for you. Recommend following up with them on an outpatient basis over the next 7-10 days for wound recheck, suture removal discuss the fracture to fingertip. documented in this encounter Miscellaneous Notes * ED Caddie Supervisor Note - Shyanne Mcadams RN - 11/24/2024 6:11 PM EST DC given and M2B given with pt. Verbalized understanding. * Pt Handout (on AVS) - Deepak Jones PA-C - 11/24/2024 5:22 PM EST Images from the original note were not included. [id number] Finger or Toe Fractures (Broken Finger or Toe) A hard blow can break a bone in your toe or finger. Broken bones are also known as fractures. Even minor fractures need medical care. Without treatment, they may heal crooked, remain stiff, or develop other problems. When to go to the emergency room (ER) You may not always know when you have a fractured toe or finger. Apply ice to the injury right away. Then, get medical care if: Your finger or toe is swollen or very painful. You can't move your finger or toe normally. Your injured toe or finger is pale or blue. Your injured toe or finger is deformed. You are bleeding. A bone sticks out (protrudes) through your skin. What to expect in the ER A healthcare provider will ask about your injury and examine your toe or finger. You may have X-rays. Treatment will depend on the type of fracture you have. Toe fracture Your healthcare provider may straighten a broken toe. You'll be given local anesthesia so you won'tfeel any discomfort during this procedure. Your injured toe may then be splinted by being taped to a toe next to it, or placed on a pad that's taped to your foot. Your healthcare provider may also ask you to apply ice and keep your foot raised. Finger fracture Your healthcare provider may straighten a broken finger. A broken finger is likely to be placed in a metal splint. This helps straighten and protect the finger while it heals. Your healthcare provider may give you exercises to do as your injury heals, to prevent stiffness in your finger. A finger splint limits movement and keeps your finger in the best position for healing. Last Reviewed Date: 2024 00:00:00 [id number] [employer]. All rights reserved. This information is not intended as a substitute for professional medical care. Always follow your healthcare professional's instructions. * Pt Handout (on AVS) - Deepak Jones PA-C - 11/24/2024 5:22 PM EST [id number] Open Finger Fracture You have a broken finger (fracture) with a nearby cut, puncture, or deep scrape. This causes pain, swelling, and bruising. Because of the open injury, you are at risk for infection in the skin and bone. You will take antibiotics to lower the risk for infection. This injury usually takes about 4 weeks to heal. Finger injuries are often treated with a splint orcast, or by taping the injured finger to the next one (reina taping). This protects the injured finger and holds the bone in position while it heals. More serious fractures may need surgery. If the fingernail has been severely injured, it will probably fall off in 1 to 2 weeks. A new fingernail will usually start to grow back within a month. Home care Follow these guidelines when caring for yourself at home: Keep your hand elevated to reduce pain and swelling. When sitting or lying down, keep your arm above the level of your heart. You can do this by placing your arm on a pillow that rests on your chest or on a pillow at your side. This is most important during the first 2 days (48 hours) after the injury. Put an ice pack on the injured area. Do this for 20 minutes every 1 to 2 hours the first day forpain relief. You can make an ice pack by wrapping a plastic bag of ice cubes in a thin towel. As the ice melts, be careful that the cast or splint doesn?t get wet. Continue using the ice pack 3 to 4 times a day until the pain and swelling go away. Keep the cast or splint completely dry at all times. Bathe with your cast or splint out of the water. Protect it with 2 large plastic bags and tape each bag separately at the top end. If a fiberglass cast or splint gets wet, you can dry it with a economics department chair on a cool setting. You may use acetaminophen or ibuprofen to control pain, unless another pain medicine was prescribed. If you have chronic liver or kidney disease, talk with your healthcare provider before using these medicines. Also talk with your provider if you?ve had a stomach ulcer, gastrointestinal bleeding, or take a blood thinner. If reina tape was applied and it becomes wet or dirty, change it. You may replace it with paper,plastic, or cloth tape. Cloth tape and paper tapes must be kept dry. Keep the reina tape in place for at least 4 weeks, or as instructed by your healthcare provider. Take all antibiotics until you have finished them. Don?t put creams or objects under the cast if you have itching. Follow-up care Follow up with your healthcare provider, or as advised. This is to make sure the bone is healing the way it should. X-rays may be taken. You will be told of any new findings that may affect your care. When to seek medical advice Call your healthcare provider right away if any of these occur: The cast or splint cracks The plaster cast or splint becomes wet or soft The fiberglass cast or splint stays wet for more than 24 hours Pain or swelling gets worse Tightness or pressure under the cast or splint gets worse Finger becomes cold, blue, numb, or tingly You can?t move your finger Redness, warmth, swelling, drainage from the wound, or foul odor from a cast or splint Fever of 100.4F (38C) or higher, as directed by your healthcare provider Shaking chills Last Reviewed Date: 2022 00:00:00 [id number] [employer]. All rights reserved. This information is not intended as a substitute for professional medical care. Always follow your healthcare professional's instructions. * Pt Handout (on AVS) - Deepak Jones PA-C - 11/24/2024 5:22 PM EST [id number] Open Finger Fracture You have a broken finger (fracture) with a nearby cut, puncture, or deep scrape. This causes pain, swelling, and bruising. Because of the open injury, you are at risk for infection in the skin and bone. You will take antibiotics to lower the risk for infection. This injury usually takes about 4 weeks to heal. Finger injuries are often treated with a splint orcast, or by taping the injured finger to the next one (reina taping). This protects the injured finger and holds the bone in position while it heals. More serious fractures may need surgery. If the fingernail has been severely injured, it will probably fall off in 1 to 2 weeks. A new fingernail will usually start to grow back within a month. Home care Follow these guidelines when caring for yourself at home: Keep your hand elevated to reduce pain and swelling. When sitting or lying down, keep your arm above the level of your heart. You can do this by placing your arm on a pillow that rests on your chest or on a pillow at your side. This is most important during the first 2 days (48 hours) after the injury. Put an ice pack on the injured area. Do this for 20 minutes every 1 to 2 hours the first day forpain relief. You can make an ice pack by wrapping a plastic bag of ice cubes in a thin towel. As the ice melts, be careful that the cast or splint doesn?t get wet. Continue using the ice pack 3 to 4 times a day until the pain and swelling go away. Keep the cast or splint completely dry at all times. Bathe with your cast or splint out of the water. Protect it with 2 large plastic bags and tape each bag separately at the top end. If a fiberglass cast or splint gets wet, you can dry it with a economics department chair on a cool setting. You may use acetaminophen or ibuprofen to control pain, unless another pain medicine was prescribed. If you have chronic liver or kidney disease, talk with your healthcare provider before using these medicines. Also talk with your provider if you?ve had a stomach ulcer, gastrointestinal bleeding, or take a blood thinner. If reina tape was applied and it becomes wet or dirty, change it. You may replace it with paper,plastic, or cloth tape. Cloth tape and paper tapes must be kept dry. Keep the reina tape in place for at least 4 weeks, or as instructed by your healthcare provider. Take all antibiotics until you have finished them. Don?t put creams or objects under the cast if you have itching. Follow-up care Follow up with your healthcare provider, or as advised. This is to make sure the bone is healing the way it should. X-rays may be taken. You will be told of any new findings that may affect your care. When to seek medical advice Call your healthcare provider right away if any of these occur: The cast or splint cracks The plaster cast or splint becomes wet or soft The fiberglass cast or splint stays wet for more than 24 hours Pain or swelling gets worse Tightness or pressure under the cast or splint gets worse Finger becomes cold, blue, numb, or tingly You can?t move your finger Redness, warmth, swelling, drainage from the wound, or foul odor from a cast or splint Fever of 100.4F (38C) or higher, as directed by your healthcare provider Shaking chills Last Reviewed Date: 2022 00:00:00 [id number] [employer]. All rights reserved. This information is not intended as a substitute for professional medical care. Always follow your healthcare professional's instructions. * ED Caddie Supervisor Note - Hadley Lenz RN - 11/24/2024 2:35 PM EST Patient brought in EMS after injuring his finger putting away a cart at [facility]. Patient states the finger was between two carts, crushed left ring finger while putting carts away. EMS reportslaceration to distal aspect of finger. documented in this encounter Plan of Treatment Scheduled Referrals Name Type Priority Associated Diagnoses [...] - 19+ 3-dose series) 1986 Pneumococcal Vaccine: Pediatrics (0 to 5 Years) and At-Risk Patients (6 to 64 Years) (1 of 2 - PCV) 1986 Cologuard 2012 Colonoscopy 2012 Colorectal Cancer Screening 2012 Fecal Occult Blood Test 2012 Sigmoidoscopy 2012 Zoster Vaccines (1 of 2) 2017 Depression Screening 12/05/2019 12/05/2018 HbA1c 07/10/2021 01/10/2021, 12/05/2018 COVID-19 Vaccine ( season) 2024 Influenza Vaccine (FLU shot) (#1) 2024 GFR 04/10/2025 04/10/2024, 05/0 07/2024, 01/10/2021, Additional history exists DTap/Tdap Vaccines [...] Procedure Name Priority Date/Time Associated Diagnosis Comments XR HAND 3 OR MORE VIEWS STAT 11/24/2024 2:49 PM EST documented in this encounter Results * XR HAND 3 OR MORE VIEWS (11/24/2024 2:49 PM EST) Anatomical Region Laterality Modality Upper Extremity, Hand Digital Ra diography 11/24/2024 2:40 PM EST Impressions 11/24/2024 3:15 PM EST IMPRESSION: 1.5 mm ossific density is visualized within the soft tissues near the laceration site, which is likely a tiny avulsion fracture. THIS DOCUMENT HAS BEEN ELECTRONICALLY SIGNED BY DO Anthony MANN 11/24/2024 3:15 PM EST PROCEDURE INFORMATION: Exam: XR Left Hand Exam date and time: 11/24/2024 2:40 PM Age: 59 years old Clinical indication: Other: PT finger pinched between 2 shopping carts; Pain and laceration to distal 4th digit; PT unable to remove ring; Additional info: Left hand pain TECHNIQUE: Imaging protocol: Radiologic exam of the left hand. Views: 3 or more views. COMPARISON: No relevant prior studies available. FINDINGS: Bones/joints: 1.5 mm ossific density is visualized within the soft tissues near the laceration site, which is likely a tiny avulsion fracture. No dislocation. Mild degenerative changes are seen within the distal interphalangeal joints. Soft tissues: There is soft tissue swelling within the distal left 4th digit. No radiopaque foreign body. Procedure Note Lucy Jolley DO - 11/24/2024 PROCEDURE INFORMATION: Exam: XR Left Hand Exam date and time: 11/24/2024 2:40 PM Age: 59 years old Clinical indication: Other: PT finger pinched between 2 shopping carts;Pain and laceration to distal 4th digit; PT unable to remove ring; Additionalinfo: Left hand pain TECHNIQUE: Imaging protocol: Radiologic exam of the left hand. Views: 3 or more views. COMPARISON: No relevant prior studies available. FINDINGS: Bones/joints: 1.5 mm ossific density is visualized within the softtissues near the laceration site, which is likely a tiny avulsion fracture. No dislocation. Mild degenerative changes are seen within the distal interphalangeal joints. Soft tissues: There is soft tissue swelling within the distal left 4thdigit. No radiopaque foreign body. IMPRESSION IMPRESSION: 1.5 mm ossific density is visualized within the soft tissues near the laceration site, which is likely a tiny avulsion fracture. THIS DOCUMENT HAS BEEN ELECTRONICALLY SIGNED BY LUCY JOLLEY DO us Jassi Fernandez MD RADIOLOGY ([facility]) Final Result documented in this encounter Visit Diagnoses Diagnosis Open nondisplaced fracture of distal phalanx of left index finger, initial encounter- Primary documented in this encounter Administered Medications Inactive Administered Medications - up to 3 most recent administrations Medication Order MAR Action Action Date Dose Rate Site Cephalexin (Keflex) cap 500 mg 500 mg, Oral, ONCE, On Sat11/24/24 at 1715, For 1 dose Given 11/24/2024 4:49 PM EST 500 mg lidocaine 1 % inj 100 mg 100 mg (10 mL), Subcutaneous, ONCE, On Sat11/24/24 at 1600, For 1 dose Given By 11/24/2024 3:29 PM EST 100 mg Other-Specify oxyCODONE-acetaminophen 5-325 mg per tab (Percocet) 1 Tablet 1 Tablet, Oral, ONCE, On Sat11/24/24 at 1600, For 1 dose, Maximum of 4 grams (4000 mg) of acetaminophen per day Given 11/24/2024 3:29 PM EST 1 Tablet documented in this encounter Active and Recently Administered Medications Times are shown in EST. Scheduled Medication Order 11/22/2024 11/23/2024 11/24/2024 Cephalexin (Keflex) cap 500 mg (COMPLETED) 500 mg, Oral, ONCE, On Sat11/24/24 at 1715, For 1 dose 1649 (Given - Provid er: Hadley Lenz RN) lidocaine 1 % inj 100 mg (COMPLETED) 100 mg (10 mL), Subcutaneous, ONCE, On Sat11/24/24 at 1600, For 1 dose 1529 (Given By - Pro vider: Hadley Lenz RN - Comment: given by AP) oxyCODONE-acetaminophen 5-325 mg per tab (Percocet) 1 Tablet (COMPLETED) 1 Tablet, Oral, ONCE, On Sat11/24/24 at 1600, For 1 dose, Maximum of 4 grams (4000 mg) of acetaminophen per day 1529 (Given - Provid er: Hadley Lenz RN) documented in this encounter
[2025-02-18] MEDS: ACETAMINOPHEN 500 MG TAB PO PRN (03:57)
[2025-02-18] MEDS ORDERED: GLUCOSE 10 TAB/TUBE PO PRN (05:51)
[2025-02-18] MEDS ORDERED: DEXTROSE 50% 50 ML SYRINGE IV PRN (05:51)
[2025-02-18] MEDS ORDERED: GLUCOSE 40% GEL 15 GM TUBE PO PRN (05:51)
[2025-02-18] MEDS ORDERED: CARBOHYDRATES FOR HYPOGLYCEMIA PO PRN (05:51)
[2025-02-18] MEDS ORDERED: GLUCAGON FOR INJ 1 MG VIAL SQ PRN (05:51)
--- NOTE | 2025-02-18 05:54 | Hospitalist Consultation ---
Date of Consultation February 18, 2025 Assessment & Plan (1) UGIB (upper gastrointestinal bleed): Final Assessment and Recommendations as follows : UGIB VF status post CPR Patient currently hemodynamically stable. 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 IV PPI Hold aspirin for now Follow H&H, transfuse PRBC if hemoglobin less than 8 and or for symptomatic anemia GI consult re: UGIB as per discussion with Dr. Spaulding of Cardiology Basal bolus insulin adjusted for n.p.o. status, ISS BG goal 1 10-1 40 DVT prophylaxis. SCDs re: GI bleed Thank you very much for this consultation. Dr. Gilmore will follow patient's progress. Text document was generated using [email or web address] voice recognition software. It may contain grammatical or spelling errors. Kindly contact undersigned for clarification of any documentation item in question. History of Present Illness Reason for Consultation: UGIB, medical management Requesting Physician: Dr. Spaulding Attending Physician: Kaylynn Coley DO History of Present Illness PCP: PIPPA Mancia History obtained from patient and records. Medical history significant for nonocclusive CAD, PSVT, hypertension, hyperlipid emia, sarcoidosis, MYRA, pulmonary nodules, DM2 on oral medications, past tobacco abuse. Patient underwent EPS procedure for SVT yesterday. While sedated, patient went into A-fib with subsequent cardioversion. Patient later noted to be in V-fib. Subsequent CPR, multiple defibrillation shocks administered resulting in ROSC. Patient woke up at PCU. No recollection of cardiac arrest. Complaining of some chest soreness and nausea symptoms. Denies abdominal pain. Patient had bloody emesis this a.m. Denies abdominal pain, cough, chest pain, SOB symptoms. No prior episodes at home. Patient admits to occasional OTC NSAID intake at home. Hospitalist requested to evaluate patient by electric cutter operator on-call. 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 Allergies Allergy/AdvReac Type Severity Reaction Status Date / Time No Known Allergies Allergy Verified 02/17/25 08:09 Home Medications Medication Instructions Recorded Confirmed Type aspirin 81 mg PO QAM 02/17/25 02/17/25 History isosorbide mononitrate 30 mg 30 mg PO DAILY 02/17/25 02/17/25 History tablet,extended release 24 hr metformin 500 mg tablet 500 mg PO BID 02/17/25 02/17/25 History metoprolol tartrate 25 mg tablet 25 mg PO DAILY 02/17/25 02/17/25 History nitroglycerin 0.4 mg sublingual 0.4 mg sublingual PRN Chest Pain 02/17/25 History tablet rosuvastatin 20 mg tablet 20 mg PO DAILY 02/17/25 02/17/25 History Patient History Social History Smoking Status: Former smoker Smoking End Date: quit 20 years ago; Hx Alcohol Use: No Hx Substance Use: No Preferred Language: [place] Communication Ability: Effective Catering Coordinator Required: No Beliefs That Will Affect Care: None Current Living Situation: Spouse Feels Safe at Home: Yes Safety Concerns: Feels Safe At This Time Assistive Devices: Glasses Physical Exam Physical Exam: GENERAL: Comfortable, pleasant, obese, no respiratory distress SKIN: Normal color, warm HEENT: [place] palpebral conjunctivae, no ptosis, dry buccal mucosa, dried blood upper lip NECK : Supple, no tenderness CHEST : Decreased breath sounds, left chest wall tenderness HEART : RRR, no obvious murmurs ABDOMEN: Some distention, nontender EXTREMITIES : No LE swelling/tenderness, palpable pulses, no other conspicuous deformities noted NEUROLOGIC : Coherent, no facial asymmetry, no other gross focality Results & Data Results & Data Vital Signs (Past 12 Hours) Vital Signs Temp Pulse Pulse Pulse Resp BP Pulse Ox 02/18/25 05:43 36.7 C 86 134/96 93 02/18/25 02:49 36.6 C 75 20 124/84 93 02/17/25 23:40 81 02/17/25 22:41 36.6 C 78 20 155/108 H 94 02/17/25 19:17 37.0 C 82 18 183/122 H 95 O2 Del Method 02/18/25 05:43 Room Air 02/18/25 02:49 Room Air 02/17/25 23:40 02/17/25 22:41 Room Air 02/17/25 19:17 Room Air Laboratory Results Laboratory Results POC Hgb 16.0 g/dl (14.0-18.0) 02/17/25 12:36 POC Hct 47 % (42-52) 02/17/25 12:36 Activ Coag Time Kaolin 273 SECONDS (94-140) H 02/17/25 12:07 POC pH 7.28 (7.35-7.45) L 02/17/25 12:36 POC pCO2 50 mmHg (35-46) H 02/17/25 12:36 POC pO2 169 mmHg (80-95) H 02/17/25 12:36 POC HCO3 23 gertrudis/L (19-24) 02/17/25 12:36 POC Total CO2 25 mmol/L (24-31) 02/17/25 12:36 POC Base Excess -4.0 gertrudis/L (-9-1.8) 02/17/25 12:36 POC ABG O2 Sat 99.0 % (90-95) H 02/17/25 12:36 POC Sodium 140 mmol/L (135-144) 02/17/25 12:36 POC Potassium 4.1 mmol/L (3.3-5.0) 02/17/25 12:36 Impressions Chest X-Ray 02/17/25 15:32 Clinical History: Chest pain Technique: A frontal view of the chest was obtained Findings: There are no confluent pulmonary infiltrates. The heart size is within normal limits. No pleural effusion or pneumothorax is seen. There is an apparent 2 cm left upper lobe nodule No fracture is noted. No foreign body is seen Impression: Apparent 2 cm left upper lobe nodule, which could represent bronchogenic carcinoma. Contrast enhanced chest CT is recommended for further evaluation ACT 112: Positive. There are findings on this exam that require communication between the performing entity and the patient following Patient Test Result Information Act ([place] ACT 112) guidelines. Electronically signed by John Herrera 02-17-2025 4:15 PM
[2025-02-18] MEDS: PANTOprazole 80 MG in DEXTROSE 5% 100 ML IV STA (05:55)
[2025-02-18] MEDS: LACTATED RINGER'S 1,000 ML IV ONE (06:00)
[2025-02-18] MEDS: INSULIN ASPART PER UNIT CHARGE SC SCH ×2 (06:20→20:44)
[2025-02-18 07:12] LABS: Basophils # (auto) 0.03 K/uL (0.00-0.20); Basophils % (auto) 0.4 %; Eosinophils # (auto) 0.03 K/uL (0.00-0.50); Eosinophils % (auto) 0.4 %; Hematocrit (blood only) 41.9 % (42.0-52.0); Hemoglobin 15.2 g/dl (14.0-18.0); Immature Granulocytes # (auto) 0.03 K/uL (0.01-0.20); Immature Granulocytes % (auto) 0.4 %; Lymphocytes # (auto) 1.13 K/uL (1.20-3.40); Lymphocytes % (auto) 13.9 %; Mean Corpuscular Hemoglobin 30.6 pg (25.0-34.0); Mean Corpuscular Hgb Conc 36.3 g/dL (32.0-36.0); Mean Corpuscular Volume 84.5 fL (80.0-100.0); Mean Platelet Volume 9.6 fL (9.4-12.4); Monocytes # (auto) 0.56 K/uL (0.11-0.59); Monocytes % (auto) 6.9 %; Neutrophils # (auto) 6.35 K/uL (1.40-6.50); Platelet Count 213 K/uL (130-400); RDW Coefficient of Variation 11.9 % (11.5-14.5); RDW Standard Deviation 35.9 fL (36.4-46.3); Red Blood Count 4.96 M/uL (4.70-6.10); White Blood Count 8.13 K/ul (4.8-10.8)
[2025-02-18 07:29] LABS: Partial Thromboplastin Ratio 0.9; Partial Thromboplastin Time 25 Seconds (21-31)
--- NOTE | 2025-02-18 07:29 | XRay Report ---
EXAM: XR chest 1V portable CLINICAL HISTORY: bloody emesis TECHNIQUE: An X-ray image of the chest is obtained in AP projection. COMPARISON: 02/17/2025. FINDINGS: Pulmonary Parenchyma: Unchanged left lung upper zone opacity measuring 18 mm. No evidence of pleural effusion or pleural thickening. Heart and Mediastinum: Heart size and shape are normal. No mediastinal widening or masses. No hilar or mediastinal lymphadenopathy. Bony Thorax: Bony thorax appears intact without fractures or deformities. Soft Tissues: Soft tissues overlying the chest wall are unremarkable. IMPRESSION: 1. Unchanged 18 mm opacity in the upper zone of the left lung. 2. No interval changes. Electronically signed by Dawit Simon 02-18-2025 07:29 AM
[2025-02-18 07:42] LABS: Albumin Globulin Ratio 1.8 (0.9-2); Albumin Level 4.4 gm/dl (3.4-5.0); BUN Creatinine Ratio 18.4 (10-20); Bilirubin,Total 1.5 mg/dl (0.2-1.0); Calcium 8.4 mg/dl (8.6-10.3); Creatinine Clr Calc Pharmacy 110.5 ml/min; Globulin 2.5 gm/dl (2.5-4.0); Potassium 3.9 mmol/L (3.5-5.1); Total Protein 6.9 gm/dl (6.0-8.3)
[2025-02-18] MEDS ORDERED: ISOSORBIDE MONO EXTENDED REL 30 MG TABCR PO SCH (09:00)
[2025-02-18] MEDS ORDERED: ASPIRIN 81 MG ECTAB PO SCH (09:00)
[2025-02-18] MEDS: ROSUVASTATIN CALCIUM 20 MG TAB PO SCH (09:05)
[2025-02-18] MEDS: LANTUS PER UNIT CHARGE SQ SCH (09:09)
[2025-02-18] MEDS: SILVER SULFADIAZINE 1% CR 50 GM JAR/TUBE EXT ONE (11:16)
--- NOTE | 2025-02-18 11:37 | Gastrointestinal Consultation ---
<Statement entered by Akash Alex MD - 02/18/25 17:00> I have reviewed the history, physical exam, lab and imaging findings as dictated by the mid-level provider, made any necessary modifications, and agree with the stated assessment and recommendations. A total of 45 minutes was spent in the review, direct observation, decision making and discussion of this case with the patient/family and other providers. Akash Alex MD Date of Consultation February 18, 2025 Assessment & Plan (1) Hematemesis: -CT abdomen/pelvis to assess for underlying liver disease/portal hypertension -Given one episode of hematemesis after cardiac resuscitation, at the present time would monitor conservatively. Continue IV Protonix 40 mg daily, continue to monitor H/H, and continue to monitor for overt GI bleeding. -Follow CMP/LFTs -Obtain PT/INR History of Present Illness Reason for Consultation: Hematemesis Attending Physician: Kaylynn Coley, History of Present Illness Patient is a 59 yo male who was here for an outpatient cardiac EPS procedure for SVT on 02/17/25. While he was sedated, he went into Afib and had a subsequent cardioversion. He was later noted to be in V fib and had subsequent CPR, received multiple defibrillation shocks, and achieved ROSC. 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 He uses occasional NSAIDs in addition to a daily aspirin 81 mg. He has a history of heavy alcohol use. No baseline labs or imaging. No known history of liver disease. His hemoglobin/hematocrit was well maintained at 15.2/41.9. No further GI symptoms. He's currently on IV Protonix gtt. BUN normal. No pertinent family history. No heartburn, reflux, history of ulcers. No melena. T bili 1.5. AST 181, ALT 92. No known baseline LFTs to our system. Allergies Allergy/AdvReac Type Severity Reaction Status Date / Time No Known Allergies Allergy Verified 02/17/25 08:09 Home Medications Medication Instructions Recorded Confirmed Type aspirin 81 mg PO QAM 02/17/25 02/17/25 History isosorbide mononitrate 30 mg 30 mg PO DAILY 02/17/25 02/17/25 History tablet,extended release 24 hr metformin 500 mg tablet 500 mg PO BID 02/17/25 02/17/25 History metoprolol tartrate 25 mg tablet 25 mg PO DAILY 02/17/25 02/17/25 History nitroglycerin 0.4 mg sublingual 0.4 mg sublingual PRN Chest Pain 02/17/25 History tablet rosuvastatin 20 mg tablet 20 mg PO DAILY 02/17/25 02/17/25 History Patient History Social History Smoking Status: Former smoker Smoking End Date: quit 20 years ago; Hx Alcohol Use: No Hx Substance Use: No Preferred Language: Ma[place] Communication Ability: Effective Vault Service Mechanic Required: No Beliefs That Will Affect Care: None Current Living Situation: Spouse Feels Safe at Home: Yes Safety Concerns: Feels Safe At This Time Assistive Devices: Glasses Review of Systems Constitutional: no fever and no chills Respiratory: no cough Cardiovascular: + chest pain Gastrointestinal: + hematemesis; no abdominal pain, no bel kristy, no heartburn and no coffee ground emesis Physical Exam Constitutional: well developed Respiratory: normal respiratory effort Gastrointestinal (Abdomen): normal bowel sounds, soft, nontender, no hepatosplenomegaly Results & Data Vital Signs (Past 12 Hours) Vital Signs Temp Pulse Pulse Pulse Resp BP Pulse Ox 02/18/25 11:00 36.7 C 74 19 112/78 93 02/18/25 10:15 83 02/18/25 07:45 02/18/25 07:08 36.9 C 79 19 122/78 93 02/18/25 05:43 36.7 C 86 134/96 93 02/18/25 02:49 36.6 C 75 20 124/84 93 02/17/25 23:40 81 O2 Del Method 02/18/25 11:00 Room Air 02/18/25 10:15 02/18/25 07:45 Room Air 02/18/25 07:08 Room Air 02/18/25 05:43 Room Air 02/18/25 02:49 Room Air 02/17/25 23:40 PG Care Time/CCT Total # of Minutes Spent Total Time Spent with Patient: Total time spent is greater than 50% in coordination of care (as documented) at patient's floor/unit and/or counseling patient: Coding Level of Care Code 58938 IN/OBS CONSULT LVL 4,60M Diagnoses Hematemesis K92.0
[2025-02-18 12:29] LABS: Hematocrit (blood only) 40.7 % (42.0-52.0); Hemoglobin 14.9 g/dl (14.0-18.0)
[2025-02-18 12:56] LABS: Prothrombin Time 10.7 Seconds (9.0-12.0)
[2025-02-18] MEDS: OPTIRAY 320 100ml IV ONE (13:37)
--- NOTE | 2025-02-18 14:04 | Hospitalist Progress Note ---
Date of Service February 18, 2025 Assessment & Plan (1) UGIB (upper gastrointestinal bleed): Plan: 59-year-old male with PMH of nonocclusive CAD, PSVT, HTN, HLD, sarcoidosis, MYRA, pulmonary nodules, T2DM on oral medications, past tobacco abuse who underwent EPS procedure for SVT on 02/17 and was admitted due to complications. While sedated, patient went into A-fib with subsequent cardioversion. Patient later noted to be in V-fib and subsequent CPR/multiple defibrillation shocks performed resulting in ROSC. Patient woke up, no recollection of cardiac arrest, complained of some chest soreness and nausea symptoms. Patient had bloody emesis in the a.m. of 02/18. Patient denied abdominal pain. Patient denies NSAID intake. Hospitalist requested to evaluate patient by supervisor receiving and processing on- call. He is being managed for the following: Ventricular fibrillation status post CPR Patient had V-fib 02/18 a.m., see above. Patient currently hemodynamically stable Currently on p.o. amiodarone and amiodarone drip. Management per primary team. Monitor and replete electrolytes Likely upper GI bleed Transaminitis Patient with an episode of hematemesis 02/18 a.m. OP chart review 02/18: mild transaminitis noted GI evaluated, recommends CT abdomen pelvis, c/w iv ppi. H&H has been stable around 15, repeat H&H at 8 PM. f/u CT abdomen pelvis. Hold aspirin for now. LFT in AM, Hep panel Follow H&H, transfuse PRBC if hemoglobin less than 8 and or for symptomatic anemia Pulmonary nodule: noted 2 cm nodule JESSEE in admitting CXR. f/u CT chest for further characterization. Other chronic medical conditions: Continue with/resume home meds as and when able. hx nonocclusive CAD hx PSVT PAF status post cardioversion hypertension, stable hyperlipidemia, on statin Rx sarcoidosis/pulmonary nodules, patient overdue for follow-up with [facility] preparer making department DM2 on oral medications, suboptimal control as of recent hemoglobin A1c of 8.09 December 2024. SSI while inpatient. past tobacco abuse DVT prophylaxis. SCDs re: GI bleed Text document was generated using [employer] voice recognition software. It may contain grammatical or spelling errors. Kindly contact undersigned for clarification of any documentation item in question. Admission and Anticipated Discharge Date Admission Date: February 17, 2025 Subjective Patient was seen and examined at bedside. Patient was sitting up in bed, on room air, NAD, resting comfortably. Patient had 1 episode of hematemesis in the morning, no further episodes per patient. N.p.o. until GI eval. Physical Exam Physical Exam: GENERAL: Comfortable, pleasant, obese, no respiratory distress SKIN: Normal color, warm HEENT: [place] palpebral conjunctivae, no ptosis, moist buccal mucosa. NECK : Supple, no tenderness CHEST : Decreased breath sounds, left chest wall tenderness HEART : RRR, no obvious murmurs ABDOMEN: No distention, nontender EXTREMITIES : No LE swelling/tenderness, palpable pulses, no other conspicuous deformities noted NEUROLOGIC : Coherent, no facial asymmetry, no other gross focality Results & Data Results & Data Vital Signs (Past 12 Hours) Vital Signs Temp Pulse Pulse Pulse Resp BP Pulse Ox 02/18/25 11:00 36.7 C 74 19 112/78 93 02/18/25 10:15 83 02/18/25 07:45 02/18/25 07:08 36.9 C 79 19 122/78 93 02/18/25 05:43 36.7 C 86 134/96 93 02/18/25 02:49 36.6 C 75 20 124/84 93 O2 Del Method 02/18/25 11:00 Room Air 02/18/25 10:15 02/18/25 07:45 Room Air 02/18/25 07:08 Room Air 02/18/25 05:43 Room Air 02/18/25 02:49 Room Air
--- NOTE | 2025-02-18 14:07 | CT Scan Report ---
CT chest diagnostic wo/w con CLINICAL HISTORY: Left sided pulmonary mass COMPARISON STUDY: Chest x-ray earlier today FINDINGS: There is minimal scarring or atelectasis at the right lower lobe. No other pulmonary consol idation or pleural effusion. There is a 2 cm pulmonary nodule lateral anterior superior aspect of the left lower lobe series 4 image 66. It has precontrast Hounsfield density of 50 and post contrast Jez nsfield density of 50. No appreciable enhancement seen. No other significant pulmonary nodule seen. T here are diffuse coronary artery calcifications. No pericardial effusion. There are a few minimally p rominent subcarinal lymph nodes, largest measuring 2 cm greatest axial dimension. No other enlarged a denopathy seen. There are mild thoracic spine degenerative changes. IMPRESSION: 1. 2 cm left-sided pulmonary nodule superiorly at the left lower lobe. Differential diagnosis include s malignancy and pulmonary hamartoma. 2. Minimally prominent subcarinal lymph nodes. No other enlarged adenopathy seen. 3. Otherwise as described. ACT 112: Positive. There are findings on this exam that require communication between the performing entity and the patient following Patient Test Result Information Act ([place] Act 112) guidelines. Electronically signed by: Winston Foss M.D. 02/18/2025 2:06 PM
--- NOTE | 2025-02-18 14:25 | CT Scan Report ---
CT OF THE ABDOMEN AND PELVIS WITH CONTRAST CLINICAL HISTORY: Hematemesis; r/o liver disease/portal hypertension COMPARISON STUDY: None. TECHNIQUE: Following IV administration of 94 mL of Optiray, axial images of the abdomen and pelvis we re obtained from the lung bases to the proximal femurs. Images were reviewed in the axial, sagittal, and coronal planes. IV contrast was administered without complication. Automated exposure control wa s utilized for the study. A dose lowering technique was utilized adhering to the principles of ALARA . Oral contrast was administered. FINDINGS: Please note that the chest CT will be reported separately. No pneumatosis, free air or port al venous gas is present. There is hepatic steatosis with fatty sparing within the gallbladder fossa. Liver morphology is normal. There are no hepatic lesions. There is no biliary or pancreatic ductal d ilatation. Size of the spleen is normal. There is no ascites. Adrenal glands, kidneys and pancreas ar e unremarkable. There is no evidence for a bowel obstruction. Prostate is mildly enlarged, measuring 5.3 cm in transverse diameter. There is moderate subcutaneous stranding within the bilateral groins, right greater than left. No fluid collection is identified. There is no soft tissue gas. IMPRESSION: 1. Hepatic steatosis. Normal liver morphology. No hepatic lesions. No biliary ductal dilatation. 2. Normal size spleen. No ascites. No varices identified. 3. Bilateral groin stranding, greater on the right. This may represent cellulitis or edema. No associ ated fluid collection. ACT 112: Negative or not required by law. Electronically signed by: Hugo Skinner M.D. 02/18/2025 2:23 PM
--- NOTE | 2025-02-18 15:37 | Cardiology Progress Note ---
Date of Service February 18, 2025 Assessment & Plan (1) Cardiac arrest with ventricular fibrillation: (2) PSVT (paroxysmal supraventricular tachycardia): (3) HTN (hypertension): (4) Pulmonary nodule: (5) UGIB (upper gastrointestinal bleed): (6) Hematemesis: Plan 59-year-old male status post ventricular fibrillation arrest during ablation procedure. Patient recovering well post CPR. No recurrent dysrhythmia on telemetry overnight. Tolerating amiodarone. Repeat ECG in AM. GI consultation placed for further evaluation of hematemesis. Continue IV Protonix. Monitor serial H&H. Aspirin on hold. Pulmonary medicine consultation requested for evaluation of left-sided nodule. Admission and Anticipated Discharge Date Admission Date: February 17, 2025 Subjective 59-year-old male seen examined at the bedside. Notes chest wall soreness today. Discomfort reproducible with palpation. No orthopnea or PND. Does not recall events of cardiac arrest and CPR. Telemetry reveals sinus rhythm in the 80s with rare premature ventricular complexes. CT of the chest demonstrating 2 cm left-sided nodule. Review of Systems Review of Systems: All systems reviewed & are unremarkable except as noted in Subjective Physical Exam Constitutional: well developed and well nourished; no acute distress Respiratory: normal respiratory effort; no respiratory distress Auscultation: no crackles, no rales, no rhonchi and no wheezes Cardiovascular: Rate/Rhythm: regular rate and regular rhythm Heart Sounds: normal S1 and normal S2; no murmur Extremities: no edema Gastrointestinal (Abdomen): Inspection/Auscultation: abdomen normal to inspection; abdomen not distended Percussion/Palpation: abdomen soft; abdomen nontender, no guarding and abdomen not rigid Neurologic: CN's II-XI intact bilaterally and moves all extremities; no focal motor deficits Results & Data Vital Signs (Past 12 Hours) Vital Signs Temp Pulse Pulse Pulse Resp BP Pulse Ox 02/18/25 14:37 84 02/18/25 11:00 36.7 C 74 19 112/78 93 02/18/25 10:15 83 02/18/25 07:45 02/18/25 07:08 36.9 C 79 19 122/78 93 02/18/25 05:43 36.7 C 86 134/96 93 O2 Del Method 02/18/25 14:37 02/18/25 11:00 Room Air 02/18/25 10:15 02/18/25 07:45 Room Air 02/18/25 07:08 Room Air 02/18/25 05:43 Room Air Laboratory Results Cardiac Enzymes 02/18/25 Range/Units 06:28 AST 181 H (13-39) U/L Coagulation 02/18/25 02/18/25 Range/Units 06:28 11:45 PT 10.7 (9.0-12.0) Seconds APTT 25 (21-31) Seconds CBC 02/18/25 02/18/25 Range/Units 06:28 11:45 WBC 8.13 (4.8-10.8) K/ul RBC 4.96 (4.70-6.10) M/uL Hgb 15.2 14.9 (14.0-18.0) g/dl Hct 41.9 L 40.7 L (42.0-52.0) % Plt Count 213 (130-400) K/uL Neut # (Auto) 6.35 (1.40-6.50) K/uL Lymph # (Auto) 1.13 L (1.20-3.40) K/uL [place] # (Auto) 0.56 (0.11-0.59) K/uL Eos # (Auto) 0.03 (0.00-0.50) K/uL Baso # (Auto) 0.03 (0.00-0.20) K/uL Comprehensive Metabolic Panel 02/18/25 Range/Units 06:28 Sodium 135 L (136-145) mmol/L Potassium 3.9 (3.5-5.1) mmol/L Chloride 102 (98-107) mmol/L Carbon Dioxide 26 (21-32) mmol/L BUN 16 (6-23) mg/dl Creatinine 0.87 (0.6-1.4) mg/dl Glucose 179 H (70-99(Fasting)) mg/dl Calcium 8.4 L (8.6-10.3) mg/dl AST 181 H (13-39) U/L ALT 92 H (7-52) U/L Alkaline Phosphatase 60 (34-104) U/L Total Protein 6.9 (6.0-8.3) gm/dl Albumin 4.4 (3.4-5.0) gm/dl Intake and Output 02/18/25 02/18/25 02/18/25 06:59 14:59 22:59 Intake Total 588.113 / 874.693 Output Total 350 / 750 1000 / 1000 Balance 238.113 / 124.693 -1000 / -1000 Intake: IV 288.113 / 374.693 Amiodarone / D5w 360 mg In 200 168.113 / 168.113 ml @ 0.5 MG/MIN 16.667 mls/hr IV .Q12H ROSA Rx#:[id number] PANTOprazole 80 mg In Dextrose 120 / 120 5% 100 ml @ 480 mls/hr IV ONE STA Rx#:[id number] Oral 300 / 500 Output: Urine 350 / 750 1000 / 1000 Other: Other Intake Source NPO # Unmeasured Voids 2 (3) HTN (hypertension) Hypertension type: primary hypertension Qualified Code(s): I10 - Essential (primary) hypertension
--- NOTE | 2025-02-18 17:50 | Electrocardiogram Report ---
Test Reason : Blood Pressure : */* mmHG Vent. Rate : 85 BPM Atrial Rate : 85 BPM P-R Int : 138 ms QRS Dur : 104 ms QT Int : 368 ms P-R-T Axes : 14 -15 61 degrees QTcB Int : 437 ms Normal sinus rhythm [id number] Abnormal ECG No previous ECGs available Confirmed by Akash Og ([id number]) on 02/18/2025 5:49:27 PM Referred By: Kaylynn Coley Confirmed By: Akash Og
[2025-02-18] MEDS: PANTOprazole 40 MG/10 ML SYR IV SCH (20:45)
[2025-02-18 21:18] LABS: Hematocrit (blood only) 41.7 % (42.0-52.0)
[2025-02-18] MEDS: PROMETHAZINE 12.5 MG/50.5 ML BAG IV PRN (23:29)
[2025-02-18] MEDS: METOPROLOL TARTRATE 1 MG/ML VIAL IV STA (23:30)
[2025-02-19 07:34] LABS: Hematocrit (blood only) 42.3 % (42.0-52.0); Hemoglobin 15.2 g/dl (14.0-18.0); Mean Corpuscular Hemoglobin 30.9 pg (25.0-34.0); Mean Corpuscular Hgb Conc 35.9 g/dL (32.0-36.0); Mean Platelet Volume 9.5 fL (9.4-12.4); Platelet Count 210 K/uL (130-400); RDW Coefficient of Variation 11.9 % (11.5-14.5); RDW Standard Deviation 37.2 fL (36.4-46.3); Red Blood Count 4.92 M/uL (4.70-6.10); White Blood Count 6.22 K/ul (4.8-10.8)
[2025-02-19 07:48] LABS: Albumin Level 4.2 gm/dl (3.4-5.0); BUN Creatinine Ratio 10.8 (10-20); Bilirubin Direct 0.3 mg/dl (0-0.2); Bilirubin,Total 1.3 mg/dl (0.2-1.0); Calcium 8.4 mg/dl (8.6-10.3); Creatinine Clr Calc Pharmacy 103.7 ml/min; Magnesium 2.2 mg/dl (1.7-2.4); Phosphorus 3.1 mg/dl (2.5-4.9); Potassium 3.9 mmol/L (3.5-5.1); Total Protein 6.6 gm/dl (6.0-8.3)
[2025-02-19 10:01] LABS: Hep B Surface Ag with confirm Negative (Negative)
[2025-02-19 10:06] LABS: Hep C Ab Rflx HepCQuant RNA Negative (Negative)
[2025-02-19] MEDS: POLYETHYLENE (MIRALAX) 17 GM PACK PO SCH (10:12)
[2025-02-19] MEDS: DOCUSATE SODIUM 100 MG CAP PO SCH (10:12)
--- NOTE | 2025-02-19 10:55 | Gastroenterology Progress Note ---
<Statement entered by Akash Alex MD - 02/19/25 15:21> I have reviewed the history, physical exam, lab and imaging findings as dictated by the mid-level provider, made any necessary modifications, and agree with the stated assessment and recommendations. A total of 30 minutes was spent in the review, direct observation, decision making and discussion of this case with providers, patient and family. Akash Alex MD Date of Service February 19, 2025 Assessment & Plan (1) Hematemesis: Plan: Single episode after cardiac resuscitation. H/H 15.2/42.3. No further episodes. Patient continues on PPI therapy for now; would continue 4 weeks, then discuss in follow up. No clinical concern for ongoing GI bleeding at present. Call if further questions. (2) Hepatic steatosis: Plan: We did discuss lifestyle changes regarding this issue including low fat/low cholesterol diet, weight loss, and alcohol abstinence. Admission and Anticipated Discharge Date Admission Date: February 17, 2025 Subjective Patient is a 59 yo male with a single episode of hematemesis after cardiac resuscitation. His H/H has remained within normal limits. Today H/H is 15.2/42.3. BUN 10, Cr 0.93. CT abdomen/pelvis without cirrhosis/portal hypertension/variceal concerns. Was noted to have hepatic steatosis. Platelets wnl. No further GI symptoms at present. Review of Systems Constitutional: no fever and no chills Respiratory: no cough and no dyspnea Gastrointestinal: no abdominal pain, no coffee ground emesis, no hematemesis, no diarrhea/loose stools, no blood in stools and no melena Physical Exam Constitutional: well developed Respiratory: normal respiratory effort Gastrointestinal (Abdomen): normal bowel sounds, soft, nontender, no hepatosplenomegaly Psychiatric: Orientation: alert and oriented x 3 Results & Data Results & Data Vital Signs (Past 12 Hours) Vital Signs Temp Pulse Pulse Pulse Resp BP BP 02/19/25 08:48 68 02/19/25 07:13 36.7 C 69 20 143/95 H 02/19/25 03:10 37.1 C 69 18 157/98 H 02/18/25 23:58 80 02/18/25 23:45 69 155/101 H 02/18/25 23:45 69 155/101 H 02/18/25 23:30 79 02/18/25 23:08 37.2 C 78 18 176/117 H Pulse Ox O2 Del Method 02/19/25 08:48 02/19/25 07:13 95 Room Air 02/19/25 03:10 95 Room Air 02/18/25 23:58 02/18/25 23:45 02/18/25 23:45 02/18/25 23:30 02/18/25 23:08 94 Room Air PG Care Time/CCT Total # of Minutes Spent Total Time Spent with Patient: Total time spent is greater than 50% in coordination of care (as documented) at patient's floor/unit and/or counseling patient: Coding Level of Care Code 78648 SUB INP/OBS CARE 2/35MIN Diagnoses Hematemesis K92.0 Hepatic steatosis K76.0
[2025-02-19 11:49] VITALS: O2SAT 94
--- NOTE | 2025-02-19 13:03 | Cardiology Progress Note ---
Date of Service February 19, 2025 Assessment & Plan (1) Cardiac arrest with ventricular fibrillation: (2) PSVT (paroxysmal supraventricular tachycardia): (3) HTN (hypertension): (4) Pulmonary nodule: (5) UGIB (upper gastrointestinal bleed): (6) Hematemesis: Plan 59-year-old male status post ventricular fibrillation arrest during ablation procedure. No recurrent dysrhythmia on telemetry. Recommendations: * Discontinue IV amiodarone. * Continue oral amiodarone. * Add losartan 25 mg daily due to history of diabetes and uncontrolled hypertension. * GI consultation appreciated. * Continue IV Protonix. * Monitor serial H&H. * Aspirin on hold. * Pulmonary medicine consultation requested for evaluation of left-sided nodule. Rogelio Spaulding DO, [facility] Admission and Anticipated Discharge Date Admission Date: February 17, 2025 Subjective 59-year-old male seen examined at the bedside. Continues to note chest soreness today. Mild nausea overnight. Sinus rhythm on telemetry without dysrhythmia. Hemoglobin remains stable. No recurrent hematemesis. Review of Systems Review of Systems: All systems reviewed & are unremarkable except as noted in Subjective Physical Exam Constitutional: well developed and well nourished; no acute distress Respiratory: normal respiratory effort; no respiratory distress Auscultation: no crackles, no rales, no rhonchi and no wheezes Cardiovascular: Rate/Rhythm: regular rate and regular rhythm Heart Sounds: normal S1 and normal S2; no murmur Extremities: no edema Gastrointestinal (Abdomen): Inspection/Auscultation: abdomen normal to inspection; abdomen not distended Percussion/Palpation: abdomen soft; abdomen nontender, no guarding and abdomen not rigid Neurologic: CN's II-XI intact bilaterally and moves all extremities; no focal motor deficits Results & Data Vital Signs (Past 12 Hours) Vital Signs Temp Pulse Pulse Resp BP Pulse Ox O2 Del Method 02/19/25 11:48 36.7 C 79 20 162/102 H 94 Room Air 02/19/25 08:48 68 02/19/25 07:13 36.7 C 69 20 143/95 H 95 Room Air 02/19/25 03:10 37.1 C 69 18 157/98 H 95 Room Air (3) HTN (hypertension) Hypertension type: primary hypertension Qualified Code(s): I10 - Essential (primary) hypertension
[2025-02-19] MEDS: LOSARTAN POTASSIUM 25 MG TAB PO SCH (13:50)
--- NOTE | 2025-02-19 14:32 | Hospitalist Progress Note ---
Date of Service February 19, 2025 Assessment & Plan (1) UGIB (upper gastrointestinal bleed): Plan: 59-year-old male with PMH of nonocclusive CAD, PSVT, HTN, HLD, sarcoidosis, MYRA, pulmonary nodules, T2DM on oral medications, past tobacco abuse who underwent EPS procedure for SVT on 02/17 and was admitted due to complications. While sedated, patient went into A-fib with subsequent cardioversion. Patient later noted to be in V-fib and subsequent CPR/multiple defibrillation shocks performed resulting in ROSC. Patient woke up, no recollection of cardiac arrest, complained of some chest soreness and nausea symptoms. Patient had bloody emesis in the a.m. of 02/18. Patient denied abdominal pain. Patient denies NSAID intake. Hospitalist requested to evaluate patient by proof carrier on- call. He is being managed for the following: Ventricular fibrillation status post CPR Patient had V-fib 02/18 a.m., see above. Patient currently hemodynamically stable Currently on p.o. amiodarone, iv amio dc'd. Management per primary team. Monitor and replete electrolytes Likely upper GI bleed Transaminitis Patient with an episode of hematemesis 02/18 a.m. OP chart review 02/18: mild transaminitis noted GI evaluated, c/w ppi, aspirin on hold. H&H has been stable around 15, no further episodes of hematemesis. CT abdomen pelvis w/ note of hepatic steatosis, pt advised for low fat/low cholesterol diet, wt loss. LFT trending down. Follow H&H, transfuse PRBC if hemoglobin less than 8 and or for symptomatic anemia Pulmonary nodule: noted 2 cm nodule JESSEE in admitting CXR. CT chest - 2 cm pul nodule superiorly at left lower lobe. Pulm consult, pending eval. Other chronic medical conditions: Continue with/resume home meds as and when ab le. hx nonocclusive CAD hx PSVT PAF status post cardioversion hypertension, stable hyperlipidemia, on statin Rx sarcoidosis/pulmonary nodules, patient overdue for follow-up with Rian Parson assistant at surgery DM2 on oral medications, suboptimal control as of recent hemoglobin A1c of 8.09 December 2024. SSI while inpatient. past tobacco abuse DVT prophylaxis. SCDs re: GI bleed Text document was generated using Dragon voice recognition software. It may contain grammatical or spelling errors. Kindly contact undersigned for clarification of any documentation item in question. Admission and Anticipated Discharge Date Admission Date: February 17, 2025 Subjective Patient was seen and examined at bedside. Patient was sitting up in bed, on room air, NAD, resting comfortably. Patient had 1 episode of hematemesis in the morning of 02/18, no further episodes per patient. continues to have chest soreness, will order IS. Physical Exam Physical Exam: GENERAL: Comfortable, pleasant, obese, no respiratory distress SKIN: Normal color, warm HEENT: [place] palpebral conjunctivae, no ptosis, moist buccal mucosa. NECK : Supple, no tenderness CHEST : Decreased breath sounds, left chest wall tenderness HEART : RRR, no obvious murmurs ABDOMEN: No distention, nontender EXTREMITIES : No LE swelling/tenderness, palpable pulses, no other conspicuous deformities noted NEUROLOGIC : Coherent, no facial asymmetry, no other gross focality Results & Data Results & Data Vital Signs (Past 12 Hours) Vital Signs Temp Pulse Pulse Resp BP Pulse Ox O2 Del Method 02/19/25 14:00 76 02/19/25 11:48 36.7 C 79 20 162/102 H 94 Room Air 02/19/25 08:48 68 02/19/25 07:13 36.7 C 69 20 143/95 H 95 Room Air 02/19/25 03:10 37.1 C 69 18 157/98 H 95 Room Air
[2025-02-19 15:17] VITALS: BP 160/101; RESP 19; TEMP 98.2
[2025-02-19 16:55] VITALS: PULSE 69
--- NOTE | 2025-02-19 17:00 | Pulmonary Consultation ---
Date of Consultation February 19, 2025 Assessment & Plan (1) Pulmonary nodule: Plan CT chest 02/18/2025 personally reviewed: Smooth round countered pulmonary nodule 2 cm left lower lobe superior segment perifissural Linear fibrotic band of the right lower lobe No significant hilar or mediastinal lymphadenopathy --Pulmonary nodule Left lower lobe superior segment, 2 cm in size Given the smooth border and circular in size the possibility of it being hamartoma or carcinoid is really high --History of smoking Plan: Given the well-circumscribed pulmonary nodule with smooth border the probability of it being a benign entity like hamartoma or carcinoid is high Fortunately there is no previous CAT scan of the chest to compare. My recommendation would be to have a PET scan as an outpatient. DOTA-PET could also be thought of directly to see if it is carcinoid. If the PET scan is positive then biopsying could be thought of. Unfortunately patient was discharged by the jukebox checker who was admitting physician before I could examine the patient, consult was placed by hospitalist. I discussed the plan of care with the hospitalist, patient can follow-up with me as an outpatient. Please note the above document was generated using voice recognition software. It may contain grammatical, syntax or spelling errors.Any formal questions or concerns about the content, text or information contained within the body of this dictation should be directly addressed to the provider for clarification. History of Present Illness Attending Physician: Kaylynn Coley DO History of Present Illness 59-year-old male who initially came on 02/17/2025 to have ablation of SVT but he went into A-fib post cardioversion, very into V-fib requiring CPR and multiple defibrillation was admitted to the hospital Past medical history: Coronary artery disease, hypertension, dyslipidemia, sarcoidosis, MYRA Pulmonary consulted for pulmonary nodule Patient was discharged before I saw the patient Allergies Allergy/AdvReac Type Severity Reaction Status Date / Time No Known Allergies Allergy Verified 02/17/25 08:09 Home Medications Medication Instructions Recorded Confirmed Type isosorbide mononitrate 30 mg 30 mg PO DAILY 02/17/25 02/17/25 History tablet,extended release 24 hr metformin 500 mg tablet 500 mg PO BID 02/17/25 02/17/25 History nitroglycerin 0.4 mg sublingual 0.4 mg sublingual PRN Chest Pain 02/17/25 History tablet rosuvastatin 20 mg tablet 20 mg PO DAILY 02/17/25 02/17/25 History amiodarone 200 mg tablet 200 mg PO DAILY #30 tabs 02/19/25 Rx losartan 25 mg tablet 25 mg PO QAM #30 tabs 02/19/25 Rx metoprolol tartrate 25 mg tablet 12.5 mg (1/2 x 25 mg) PO BID #0 02/19/25 02/17/25 Rx tabs pantoprazole 40 mg granules 40 mg PO DAILY #30 ea 02/19/25 Rx delayed-release for susp in packet (Protonix) Patient History Social History Smoking Status: Former smoker Hx Alcohol Use: No Hx Substance Use: No Preferred Language: Vietnamese Communication Ability: Effective Collar Stitcher Required: No Beliefs That Will Affect Care: None Current Living Situation: Spouse Feels Safe at Home: Yes Assistive Devices: None Physical Exam 2 Physical Exam: Patient was discharged before I saw the patient Skin: no rashes, warm and dry Lymphatic: no cervical or axillary lymphadenopathy Results & Data Results & Data Vital Signs (Past 12 Hours) Vital Signs Temp Pulse Pulse Resp BP Pulse Ox O2 Del Method 02/19/25 15:16 36.8 C 71 19 160/101 H 94 Room Air 02/19/25 14:00 76 02/19/25 11:48 36.7 C 79 20 162/102 H 94 Room Air 02/19/25 08:48 68 02/19/25 07:13 36.7 C 69 20 143/95 H 95 Room Air Laboratory Results 02/19/25 06:43 02/19/25 06:43 PG Care Time/CCT Total # of Minutes Spent Total Time Spent with Patient: Total time spent is greater than 50% in coordination of care (as documented) at patient's floor/unit and/or counseling patient: [place] [address] INT INP/OBS CARE 40MIN Patient Type New Diagnoses Pulmonary nodule R91.1
[2025-02-19] MEDS ORDERED: AMIODARONE HCL INJ 50 MG/ML 3 ML VIAL IV ONE (17:14)
--- NOTE | 2025-02-19 20:29 | Electrocardiogram Report ---
Test Reason : Blood Pressure : */* mmHG Vent. Rate : 71 BPM Atrial Rate : 71 BPM P-R Int : 136 ms QRS Dur : 112 ms QT Int : 448 ms P-R-T Axes : 16 3 61 degrees QTcB Int : 486 ms Normal sinus rhythm [id number] Abnormal ECG When compared with ECG of 17-Feb-2025 14:30, No significant change was found Confirmed by Akash Og ([id number]) on 02/19/2025 8:29:44 PM Referred By: Kaylynn Coley Confirmed By: Akash Og
[2025-02-21 23:22] LABS: Hepatitis A Antibody IgM NON-REACTIVE (NON-REACTIVE); Hepatitis B Core Antibody IgM NON-REACTIVE (NON-REACTIVE)
--- NOTE | 2025-03-03 13:37 | Discharge Summary ---
Date of Service 02/19/2025 Admission HPI Per Admitting Provider pt presented for elective EPS and possible ablation due to recurrent symptomatic SVT. Admission Exam Per Admitting Provider aaox3, NAD NC/AT, EOMI Supple No JVD Nrl S1/S2, No murmur CTA b/l no w/r/r soft nt/nd no LE edema b/l skin intact no focal deficits Principal Diagnosis AVRT Discharge Exam aaox3, NAD NC/AT, EOMI Supple No JVD Nrl S1/S2, No murmur CTA b/l no w/r/r soft nt/nd no LE edema b/l skin intact no focal deficits redness on chest and back ENMT Mallampati Class: III Respiratory normal respiratory effort, lungs clear to auscultation Cardiovascular RRR, no murmur, no edema Discharge Data Allergies Allergy/AdvReac Type Severity Reaction Status Date / Time No Known Allergies Allergy Verified 02/17/25 08:09 Consultations 02/18/25 06:59 Consult Gastroenterology Routine 02/18/25 14:53 Consult Pulmonology Routine Procedures Performed Operation Date: 02/17/25 09:00 Actual Procedures p EPS + Ablation for SVT Flutter - Kaylynn Coley DO s Cardioversion - Kaylynn Coley DO Ordered Studies 02/17/25 06:45 EP Lab Images for PACS ONCE 02/18/25 10:12 CT abd pelvis oral and IV con Routine 02/18/25 10:48 CT chest diagnostic wo/w con Routine Hospital Course (1) Cardiac arrest with ventricular fibrillation: this occurred after a synchronized cardioversion due to AF conducting down an accessary pathway pt loaded with IV amiodarone; will continue on amiodarone PO (2) Atrioventricular re-entrant tachycardia (AVRT): pt found to have left lateral accessory pathway that conducts bidirectional and when he went into AF during atrial pacing he conduced antegrade down the AP will continue amiodarone so he does not have any recurrent AF will arrange for him to have an ablation with me in [facility] in a few weeks so we can go transeptal to reach the AP (3) Atrial fib/flutter, transient: pt went into AF during the EPS and it was conducting antegrade down the bypass tract; it did not respond to multiple cardioversions; the first synchronized cardioversion had put him into VF he will remain on amiodarone until we can ablate the bypass tract in [facility] in a few weeks no AC for he has never had AF prior and I think he only had AF due to the agressive burst pacing during the EPS (4) HTN (hypertension): restart home meds including ARB (5) Pulmonary nodule: pt had this biopsied in the remote past will arrange for him to see pulmonary in follow up as an outpatient (6) UGIB (upper gastrointestinal bleed): pt had one episode of hematemesis; was started on protonix drip for 24 hours and then switched to oral he does have a history or ETOH use will eventually arrange for out patient GI work up including EGD and colonoscopy as he has never had one done prior (7) Hematemesis: Total Time Total Time Spent Total Time Spent (In Minutes): 45 Discharge Plan Discharge Items Patient Disposition: Home - Self-Care Reason For Visit: Supraventricular Tachycardia Discharge Diagnosis: AVRT Condition on Discharge: Good Activity: As commented below Activity Comment: no heavy lifting or squatting for a week Lifting: No more than 10 pounds Lifting Comment: for a week Driving/Machine Use: No limitations Non-emergency contact: Author Call non-emergency contact if: you have any medication questions Follow-up/Referrals: Karmen Morales CRNP [Primary Care Provider] - Diet: Heart Healthy Addtl Attending Provider Instructions: no heavy lifting or squatting for 1 week Pending Studies at Discharge: No Stand-Alone Forms: My [facility] Medications and DC Order Prescriptions: New amiodarone 200 mg Tablet 200 mg PO DAILY Qty: 30 3RF losartan 25 mg Tablet 25 mg PO QAM Qty: 30 0RF pantoprazole [Protonix] [address] for susp in packet 40 mg PO DAILY Qty: 30 7RF Continued metformin 500 mg Tablet 500 mg PO BID isosorbide mononitrate 30 mg Tablet Extended Release 24 Hr 30 mg PO DAILY nitroglycerin 0.4 mg Tablet, Sublingual 0.4 mg sublingual PRN (Reason: Chest Pain) Rx Instructions: prn rosuvastatin 20 mg Tablet 20 mg PO DAILY Changed metoprolol tartrate 25 mg Tablet 12.5 mg PO BID Qty: 0 0RF Discontinued aspirin 81 mg 81 mg PO QAM Discharge Orders: Discharge Order (Routine); Ordered 02/19/25 Ordered By: Kaylynn Coley Admission Data Admit Date/Time: 02/17/25 12:55 Attending Provider: Kaylynn Coley Admit Provider: Kaylynn Coley Primary Care Provider: Karmen Morales Other Providers: Akash Alex; Sherwin Fisher; Noman Caballero Other Interventions: Discharge Summary Assessment (RN) Last Done: 02/19/25 16:54 Coding Level of Care Code 88096 INP/OBS DISCH >30 MIN Diagnoses Cardiac arrest with ventricular fibrillation I46.9; I49.01 Atrioventricular re-entrant tachycardia (AVRT) I47.19 Atrial fib/flutter, transient I48.91; I48.92 Primary hypertension I10 Hypertension type: primary hypertension Pulmonary nodule R91.1 UGIB (upper gastrointestinal bleed) K92.2 Hematemesis K92.0
--- NOTE | 2025-03-03 13:45 | Operative Report ---
Post Operative Report DATE OF PROCEDURE: 02/17/2025 PREOPERATIVE DIAGNOSIS: Supraventricular tachycardia. 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 DIRECTOR INDUSTRIAL NURSING: None. ANESTHESIA: Monitored conscious sedation administered under my supervision by Destnii Clemons Start time 10:34 and end time 13:04 A total of 9 mg of Versed and 225 mcg of fentanyl. INTRAVENOUS FLUIDS: 1500 mL. BLOOD LOSS: 15 mL URINE OUTPUT: Not applicable. SPECIMENS: None. FINDINGS: See below. DRAINS: None. COMPLICATIONS: cardiac arrest due to inducible atrial fibrillation conducting antegrade down accessory pathway that degraded into ventricular fibrillation after a synchronized cardioversion converted back to SR after 4 external shocks; then would quickly go into recurrent AF down the accessory pathway did not respond to multiple shocks but did respond to amiodarone CONDITION: Stable. INDICATIONS: This is a 59-year-old male who has a past medical history SVT (post cath from NSTEMI) 12/18/2024 terminated with adenosine hospitalized at [facility], CAD h/o NSTEMI; non-obstructive disease by cath 12/18/2024 at [facility], HTN, DM, Lung nodule prior biopsy was negative, FMH premature CAD (father-[place] 57y/o ). Due to the recurrent symptomatic SVT, he was recommended an electrophysiology study with possible ablation. CONSENT: Consent was obtained prior to the patient going into the electrophysiology lab. The patient was informed of risks, benefits, and al ternatives to the procedure. Risks include, but not limited to sudden cardiac , cardiac arrhythmias, cerebrovascular accident, myocardial infarction, injury to the blood vessels, chamber of the heart, or the [place] electrical system where she would need a permanent pacemaker, bleeding, and infection. The patient understood these risks and agreed to the procedure as planned. Informed consent was obtained. DESCRIPTION OF PROCEDURE: The patient was brought into the electrophysiology lab in a fasting state. She was connected to continuous cardiac monitoring. A time-out was performed to ensure the patient identity and procedure correctly. She was prepped and draped over bilateral groins in normal surgical standard fashion. Monitored conscious sedation was given throughout the procedure for the patient's comfort level. Slater precautions were maintained throughout the procedure. A 10 mL of 1% lidocaine-bupivacaine mixture were given in the bilateral groins each for local anesthesia. Then, using the modified Seldinger technique under ultrasound guidance, venous access was obtained in the following manner. The left femoral vein had a 6-Ukrainian sheath followed by a Carine quadripolar catheter positioned in the right ventricular apex. A 7-Ukrainian sheath followed by octopole the Hisser catheter positioned over the His bundle region. A 7-Ukrainian sheath followed by a Biosense DF curved decapolar coronary sinus positioned out in the coronary sinus. The right femoral vein had a 6-Ukrainian sheath followed by a Carine quadripolar catheter positioned in the right atrial appendage. A 6-Ukrainian sheath that was ultimately swapped out for an SRO sheath followed by a non-irrigated Biosense DF 4 mm mapping ablation catheter. With all the diagnostic catheters in position, an electrophysiology study was performed with the following findings. Baseline intervals cycle length was 780 milliseconds. ID interval 155 milliseconds, QRS 65 milliseconds, QT 331 milliseconds. AH 67 milliseconds, HV 67 milliseconds. When burst pacing HRA patient conducted down the AVN up until 360ms then at 350ms conducted down an accessory pathway with wide QRS morphology. When I came off burst pacing the HRA at 340ms the patient had a PVC which induced tachycardia; TCL 361ms QRS duration 140ms The earliest retrograde A was in C/S 3/4 when I moved the C/S further out the distal C/S 1/2 was now the earliest A. This confirmed AVRT through a left lateral bypass tract. I opted to see if maybe we could map and reach the accessory pathway retrograde through the aortic valve since we are not able to go trans-septal. I got right femoral vein access under ultrasound and heparin bolus was given. Then I advanced a 9 marshallese sheath over the guidewire without any problems. Then an irrigated 4mm D/F curve ablation catheter was advanced through the aorta and retrograde across the AV into the LV. I did 3D mapping of the HIS bundle from the LV. I then tried to get the ablation catheter up onto the MV annulus but I could never get the catheter lateral enough to see a merged A and V signal. I was only in the LV for a brief time. I did decide to continue with an EPS again; but the C/S catheter pulled back so I tried to get the ablation catheter in the C/S. Once I got the C/S back in. The ablation catheter was placed on the high right atrium and i was atrial burst pacing. The patient went into AF. Eventually the AF started conducting antegrade down the accessory pathway and the shortest R-R interval was about 210ms. I then decided to do a synchronized external cardioversion. Unfortunately this put the patient in VF and required 4 additional external defibrillations until he went into SR. However he only went into SR briefly; on the life pack it looked to be wide complex tachycardia and we assumed he was back in VF so he got multiple shocks, CPR and code blue was called. Of note I did not appreciate during the acuteness of everything to see my intracardiac RV catheter (I was only looking at the C/S which was pulled back a great deal). The patient ultimately stopped going into WCT when amiodarone bolus was given and he never needed intubation for he was responding. After the case I was able to review the intracardiac EGMs which clearly on the RV catheter signals showed he did go back to SR and AF conducting down the bypass tract and was not back in VF after that initial 4th shock. So the additional shocks following were all when pt was in AF and it was not until the amiodarone that he was able to maintain SR. So in summary the patient went into inducible AF with burst pacing RA and having multiple catheters in the heart. The AF conducted very fast down the accessory pathway and then degraded to VF after a synchronized external cardioversion. It took for unsynchronized shocks to get the pt out of VF and then he repeatedly would be in SR for a few seconds and then go into AF conducting down the accessory pathway not responding to additional unsynchronized external cardioversions but did respond to IV amiodarone bolus and drip. All the catheters were removed from the body and the sheaths were pulled and manual compression was used to establish hemostasis. IMPRESSION: 1. 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 Inducible AF conducing antegrade down the accessory pathway that degraded to VF after a synchronized external cardioversion PLAN: admit pt to telemetry; continue IV amiodarone drip loading; he will ultimately need an ablation at [facility] [place] where I can do a transeptal puncture
== END 2025-02-19 17:15 | disposition home or self-care (01) | DRG 981 ==
LOC: EP 07:51 → 2S 12:55